=== PATIENT | male | born 1935 | race Caucasian/White ===

== ENCOUNTER → 2020-04-04 | Outpatient (CLI) | payer MEDICARE, BC ==
[2020-04-04 12:49] LABS: African American GFR (CKD) >90 (>60 ml/min/1.73 sqM); Blood Urea Nitrogen 11 mg/dL (9-20); Non-African American GFR(CKD) 83 (>60 ml/min/1.73 sqM)
--- NOTE | 2020-04-04 13:21 | CT ---
EXAMINATION TYPE: CT brain wo/w con DATE OF EXAM: 04/04/2020 COMPARISON: None. HISTORY: Headaches. CT DLP: 2037.9 mGycm Automated exposure control for dose reduction was used. CONTRAST: CT scan of the head is performed without and with IV Contrast, patient injected with 100 mL of Isovue M300. FINDINGS: There is no acute intracranial hemorrhage or midline shift identified on noncontrast images. Mild to moderate diffuse ventricular and sulcal prominence. Areas of low attenuation in the deep and periven tricular white matter. Postcontrast images show no suspicious enhancing intraparenchymal mass. Some v ascular calcifications distal internal carotid arteries bilaterally is present. The globes are intact and the visualized sinuses are clear. IMPRESSION: There is mild to moderate diffuse cerebral atrophy and moderate to advanced nonspecific w surjit matter changes may be on basis of probable chronic small vessel ischemic change and/or altered v ascular mechanics related to products of migraine headaches. No suspicious enhancing masses noted.
== END | disposition home or self-care (01) ==
LOC: RADCTMAIN 12:02
PROVIDERS: ATTEND Family Medicine
DX: G31.9 Degenerative disease of nervous system, unspecified (principal); R90.89 Other abnormal findings on diagnostic imaging of central nervous system
CPT/HCPCS: 82565; 84520; 70470; 36415; Q9967

== ENCOUNTER 2020-11-17 10:24 | Inpatient (IN) | payer MEDICARE, BC ==
[2020-11-17 10:57] LABS: Basophils # (A) 0.1 k/uL (0-0.2); Basophils % (A) 1 %; Eosinophils # (A) 0.3 k/uL (0-0.7); Eosinophils % (A) 6 %; HCT 42.7 % (39.0-53.0); HGB 14.6 gm/dL (13.0-17.5); Lymphocytes # (A) 1.8 k/uL (1.0-4.8); Lymphocytes % (A) 32 %; MCH 31.8 pg (25.0-35.0); MCHC 34.1 g/dL (31.0-37.0); MCV 93.1 fL (80.0-100.0); Mean Platelet Volume 8.1; Monocytes # (A) 0.3 k/uL (0-1.0); Monocytes % (A) 6 %; Neutrophils % (A) 52 %; Platelet Count 182 k/uL (150-450); RBC 4.58 m/uL (4.30-5.90); RDW 12.2 % (11.5-15.5); WBC 5.7 k/uL (3.8-10.6)
[2020-11-17] MEDS ORDERED: ASPIRIN 81 MG PO STA (11:01)
[2020-11-17] MEDS ORDERED: NITROGLYCERIN SL TABS 0.4 MG TAB SUBLINGUAL STA (11:01)
[2020-11-17 11:08] LABS: ALT 20 U/L (4-49); AST 34 U/L (17-59); African American GFR (CKD) >90 (>60 ml/min/1.73 sqM); Albumin 4.7 g/dL (3.5-5.0); Alkaline Phosphatase 183 U/L (38-126); Anion Gap 9 mmol/L; Blood Urea Nitrogen 11 mg/dL (9-20); Calcium 9.6 mg/dL (8.4-10.2); Carbon Dioxide 25 mmol/L (22-30); Chloride 102 mmol/L (98-107); Creatine Kinase 51 U/L (55-170); Glucose 294 mg/dL (74-99); Lipase 64 U/L (23-300); Magnesium 2.3 mg/dL (1.6-2.3); Non-African American GFR(CKD) 84 (>60 ml/min/1.73 sqM); Potassium 4.4 mmol/L (3.5-5.1); Sodium 136 mmol/L (137-145); Total Bilirubin 0.6 mg/dL (0.2-1.3); Total Protein 8.4 g/dL (6.3-8.2)
--- NOTE | 2020-11-17 11:08 | ED ---
Chest Pain HPI - General Chief Complaint: Chest Pain Stated Complaint: Chest pain Time Seen by Provider: 11/17/20 10:31 Source: patient, RN notes reviewed Mode of arrival: wheelchair Limitations: no limitations - History of Present Illness Initial Comments: This is a 85-year-old male who states he started developing chest pain this morning after helping his with a vacuum hand dry cleaner up. He states it was as if someone was grabbing his chest was almost 10/[address] for several minutes3-4/10 severity he denies any palpitations shortness breath fevers chills nausea vomiting sweats nothing makes it better nothing seems to make it worse. He's not had pain like this before. MD Complaint: chest pain - Related Data Home Medications Medication Instructions Recorded Confirmed Aspirin EC [Ecotrin Low Dose] 81 mg PO DAILY 11/17/20 11/17/20 Multivitamins, Thera [Multivitamin 1 tab PO DAILY 11/17/20 11/17/20 (formulary)] Vit C/E/Zn/Coppr/Lutein/Zeaxan 1 cap PO DAILY 11/17/20 11/17/20 [Preservision Areds 2 Softgel] amLODIPine [Norvasc] 10 mg PO DAILY 11/17/20 11/17/20 metFORMIN HCL [Glucophage] 500 mg PO BID 11/17/20 11/17/20 Allergies Allergy/AdvReac Type Severity Reaction Status Date / Time No Known Allergies Allergy Unverified 11/17/20 11:15 Review of Systems ROS Statement: Those systems with pertinent positive or pertinent negative responses have been documented in the HPI. ROS Other: All systems not noted in ROS Statement are negative. EKG Findings - EKG Results: EKG: interpreted by FADY, sinus rhythm (Sinus rhythm rate 73. We'll 168 QRS duration 14 QT since QTC 42/[address] configuration) Past Medical History Past Medical History: Hypertension Additional Past Medical History / Comment(s): taks oral DM rx History of Any Multi-Drug Resistant Organisms: None Reported Past Surgical History: Hernia Repair, Tonsillectomy Past Psychological History: No Psychological Hx Reported Smoking Status: Never smoker Past Alcohol Use History: None Reported Past Drug Use History: None Reported General Exam - General Exam Comments Initial Comments: This is a well-developed well-nourished awake alert oriented 3 male Limitations: no limitations General appearance: alert, in no apparent distress Head exam: Present: atraumatic, normocephalic, normal inspection Eye exam: Present: normal appearance, PERRL, EOMI. Absent: scleral icterus, conjunctival injection, periorbital swelling ENT exam: Present: normal exam, mucous membranes moist Neck exam: Present: normal inspection, full ROM, other (Dried review be her bruits). Absent: tenderness, meningismus, lymphadenopathy Respiratory exam: Present: normal lung sounds bilaterally. Absent: respiratory distress, wheezes, rales, rhonchi, stridor, chest wall tenderness Cardiovascular Exam: Present: regular rate, normal rhythm, normal heart sounds. Absent: systolic murmur, diastolic murmur, rubs, gallop, clicks GI/Abdominal exam: Present: soft, normal bowel sounds. Absent: distended, tenderness, guarding, rebound, rigid Extremities exam: Present: normal inspection, full ROM, normal capillary refill. Absent: tenderness, pedal edema, joint swelling, calf tenderness Back exam: Present: normal inspection Neurological exam: Present: alert, oriented X3, CN II-XII intact Psychiatric exam: Present: normal affect, normal mood Skin exam: Present: warm, dry, intact, normal color. Absent: rash Course Vital Signs 11/17/20 11/17/20 10:25 11:32 Pulse Rate 86 64 Respiratory 16 18 Rate Blood Pressure 210/82 187/87 O2 Sat by Pulse 99 97 Oximetry - Reevaluation(s) Reevaluation #1: 11/17/20 14:02 Patient did get improvement after nitro and aspirin no more pain. Reevaluation #2: 11/17/20 14:03 EKG the office was compared to that of today prominent T waves today not seen on the previous evaluation Chest Pain MDM - MDM The patient's imaging shows no evidence of pulmonary emboli. Please see com plete report I did discuss the findings with patient family and with Dr. Loomis. Patient be admitted for evaluation of chest pain Critical Care Time Critical Care Time: Yes Total Critical Care Time: 31 Critical Care Time: Critical care time including initial presentation with history physical labs x- rays multiple reevaluation the patient response to therapy discussion with the patient family regarding findings discussed with the admitting physician admission orders documentation the above and review of old charting was available. Disposition Clinical Impression: Unstable angina pectoris, Chest pain Disposition: ADMITTED IP TO THIS HOSP Condition: Fair Referrals: Cecilio Ackerman MD [Primary Care Provider] - 1-2 days
[2020-11-17 11:15] LABS: Partial Thromboplastin Time 26.1 sec (22.0-30.0); Prothrombin Time 10.6 sec (9.0-12.0)
[2020-11-17 11:18] LABS: D-Dimer 0.95 mg/L FEU (<0.60)
--- NOTE | 2020-11-17 11:25 | XR ---
EXAMINATION TYPE: XR chest 2V DATE OF EXAM: 11/17/2020 COMPARISON: NONE TECHNIQUE: PA and lateral views submitted. HISTORY: Chest pain FINDINGS: The lungs are clear and there is no pneumothorax, pleural effusion, or focal pneumonia. Mild hyperi nflation. Hypertrophic change of the spine. Arthropathy of the shoulders. Diffuse osteopenia. Heart s ize normal. No overt failure. IMPRESSION: 1. No acute process. Correlate for COPD.
[2020-11-17] MEDS ORDERED: ONDANSETRON 4 MG/2 ML VIAL IVP STA (11:43)
--- NOTE | 2020-11-17 13:18 | CT ---
EXAMINATION TYPE: CT angio chest DATE OF EXAM: 11/17/2020 COMPARISON: Radiograph same day HISTORY: 85-year-old male with elevated d-dimer, chest pain TECHNIQUE: Contiguous axial scanning of the chest performed with IV Contrast, patient injected with 1 00 mL of Isovue 370. Coronal/sagittal MIP reconstructions performed. CT DLP: 293 mGycm Automated exposure control for dose reduction was used. FINDINGS: Heart is upper limits of normal in size without pericardial effusion. No flattening of the interventr icular septum or reflux of contrast into the hepatic veins. Dense mitral annular calcifications are n oted. 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 Large caliber to the main right and left pulmonary arteries measuring up to 3.3 and 2.8 cm, respectiv citlaly, compatible with underlying pulmonary arterial hypertension. Satisfactory opacification of the pulmonary arterial system. There is mild motion at the right lung b ase limiting assessment of the segmental and more distal arterial branches here. Otherwise, no pulmon marc embolus is visualized. No thoracic lymphadenopathy by CT size criteria. Calcified left hilar and subcarinal lymph nodes comp atible with prior granulomatous disease. A few scattered calcified granulomas in the lungs. Strandy atelectasis or scarring in the lower lungs . Some patchy groundglass posterior left upper lobe is nonspecific. 6 mm right middle lobe pulmonary nodule, axial image 93. 5 mm peripheral right lower lobe pulmonary nodule, axial image 91. No consolidation or pleural effusion. Visualized upper abdomen shows calcified granulomas within both the spleen and liver. Small hiatal he rnia. 1.3 cm hypodensity, likely cortical cyst upper pole left kidney. Bones: Normal variant sternal foramen. Moderate to advanced degenerative disc disease midthoracic spi ne. Accentuated upper thoracic kyphosis. IMPRESSION: 1. SOME BREATHING MOTION ARTIFACT AT THE RIGHT BASE LIMITING ASSESSMENT OF SOME OF THE BASILAR SEGMEN ASHOK AND MORE DISTAL ARTERIAL BRANCHES HERE. OTHERWISE, NO PULMONARY EMBOLUS SEEN ELSEWHERE. 2. DENSE MITRAL ANNULAR CALCIFICATIONS. UNDERLYING PULMONARY ARTERIAL HYPERTENSION. 3. PRIOR GRANULOMATOUS DISEASE. A COUPLE PULMONARY NODULES ON THE RIGHT MEASURE UP TO 6 MM AND ARE NO NCALCIFIED. 6 MONTH FOLLOW-UP CT CHEST RECOMMENDED TO REASSESS. 4. SMALL HIATAL HERNIA.
[2020-11-17] MEDS ORDERED: NITROGLYCERIN SL TABS 0.4 MG TAB SUBLINGUAL PRN (14:04)
[2020-11-17] MEDS ORDERED: HEPARIN SODIUM,PORCINE 5,000 UNIT/ML 1 ML VIAL IV ONE (14:04)
[2020-11-17] MEDS: HEPARIN SOD,PORK IN 0.45% NACL 25,000 UNIT in 0.45% NACL 1 250ML.BAG IV SCH (14:26)
[2020-11-17] MEDS: SODIUM CHLORIDE 0.9% 1,000 ML IV SCH (14:28)
[2020-11-17] MEDS ORDERED: metFORMIN 500 MG TAB PO SCH (17:30)
[2020-11-17] MEDS: INSULIN ASPART (NovoLOG) 100 UNIT/ML VIAL SQ SCH ×2 (18:03→22:32)
[2020-11-17 18:07] LABS: Glucose,Whole Blood 286 mg/dL (75-99)
[2020-11-17] MEDS: NITROGLYCERIN OINT 1 INCH/GM PACKET TOPICAL SCH (18:07)
[2020-11-17 22:32] LABS: Glucose,Whole Blood 125 mg/dL (75-99)
[2020-11-18] MEDS: NITROGLYCERIN OINT 1 INCH/GM PACKET TOPICAL SCH ×3 (00:24→17:05)
--- NOTE | 2020-11-18 00:27 | P.HPIM ---
History of Present Illness H&P Date: 11/17/20 Chief Complaint: cHEST pAIN Patient is a 83-year-old male with a known history of hypertension, diabetes type 2 [id number] presents to ER with complaints of chest pain left retrosternal after helping his with a vacuum pecan cleaner. Patient had breakfast and was sitting in the chair. Suddenly he developed squeezing type chest pain 10 out of 10 in severity lasting for about an hour. Patient was given aspirin and nitro in the ER which seemed to help his pain. Currently denied any complaints of chest pain. Chest pain was associated with mild shortness of breath. No nausea vomiting or diaphoresis. Denied any recent illnesses. No prior history of heart disease or coronary artery disease. No cough or sputum production. No nausea vomiting or abdominal pain or diarrhea. Chest x-ray showed no acute process. Correlate for COPD CT angiogram of the chest was done which showed some breathing artifact at the right base limiting assessment of some of the basilar segment and more distal arterial branches here. Otherwise no PE. Dense mitral annular calcifications. Underlying pulmonary arterial hypertension. Prior granulomatous disease. Pulmonary nodules on the right measures up to 6 mm and are noncalcified. 6-month follow-up CT chest recommended to assess. Small hiatal hernia. D-dimer 0.95, sodium 136, blood sugar is 294 Review of Systems Constitutional: Patient denies any fever or chills . No generalized weakness or weight loss. Abdomen: Patient denied nausea vomiting and diarrhea and abdominal pain. Cardiovascular: Patient denies any chest pain or short of breath no palpitations. Respiratory: patient denied any cough or sputum production. No shortness of breath Neurologic: Patient denied any numbness or tingling headache. Musculoskeletal: Patient denies any complaints of joint swelling or deformity. Skin: Negative Psychiatric: Negative Endocrine: No heat or cold intolerance. No recent weight gain. Genitourinary: No dysuria or hematuria. All other 14 point ROS negative except the above Past Medical History Past Medical History: Hypertension Additional Past Medical History / Comment(s): taks oral DM rx History of Any Multi-Drug Resistant Organisms: None Reported Past Surgical History: Hernia Repair, Tonsillectomy Past Psychological History: No Psychological Hx Reported Smoking Status: Never smoker Past Alcohol Use History: None Reported Past Drug Use History: None Reported Medications and Allergies Home Medications Medication Instructions Recorded Confirmed Type Aspirin EC [Ecotrin Low Dose] 81 mg PO DAILY 11/17/20 11/17/20 History Multivitamins, Thera [Multivitamin 1 tab PO DAILY 11/17/20 11/17/20 History (formulary)] Vit C/E/Zn/Coppr/Lutein/Zeaxan 1 cap PO DAILY 11/17/20 11/17/20 History [Preservision Areds 2 Softgel] amLODIPine [Norvasc] 10 mg PO DAILY 11/17/20 11/17/20 History metFORMIN HCL [Glucophage] 500 mg PO BID 11/17/20 11/17/20 History Allergies Allergy/AdvReac Type Severity Reaction Status Date / Time No Known Allergies Allergy Unverified 11/17/20 11:15 Physical Exam Vitals: Vital Signs Pulse Resp BP Pulse Ox 11/17/20 14:29 89 16 167/80 99 11/17/20 11:32 64 18 187/87 97 11/17/20 10:25 86 16 210/82 99 Intake and Output 11/16/20 11/17/20 11/17/20 22:59 06:59 14:59 Other: Weight 72.575 kg PHYSICAL EXAMINATION: Patient is lying in the bed comfortably, no acute distress, awake alert and oriented.. HEENT: Normocephalic. Neck is supple. Pupils reactive. Nostrils clear. Oral cavity is moist. Ears reveal no drainage. Neck reveals no JVD, carotid bruits, or thyromegaly. CHEST EXAMINATION: Trachea is central. Symmetrical expansion. Lung wall clear to auscultation and percussion. CARDIAC: Normal S1, S2 with no gallops. No murmurs ABDOMEN: Soft. Bowel sounds normal. No organomegaly. No abdominal bruits. Extremities: reveal no edema. No clubbing or cyanosis Neurologically awake, alert, oriented x3 with well-coordinated movements. No focal deficits noted Skin: No rash or skin lesions. Psychiatric: Coperative. Nonsuicidal Musculoskeletal: No joint swelling or deformity. Normal range of motion. Results CBC & Chem 7: 11/17/20 10:49 11/17/20 10:49 Labs: Abnormal Lab Results - Last 24 Hours (Table) 11/17/20 11/17/20 Range/Units 10:49 10:49 D-Dimer 0.95 H (<0.60) mg/L FEU Sodium 136 L (137-145) mmol/L Glucose 294 H (74-99) mg/dL Alkaline Phosphatase 183 H (38-126) U/L Creatine Kinase 51 L (55-170) U/L Total Protein 8.4 H (6.3-8.2) g/dL Thrombosis Risk Factor Assmnt - DVT/VTE Prophylaxis DVT/VTE Prophylaxis: Pharmacologic Prophylaxis ordered Assessment and Plan Assessment: Atypical chest pain. Possible unstable angina. Hypertensive emergency on admission with blood pressure 210/82 6 mm right lung nodule. Follow-up CT in 6 months. Small hiatal hernia Diabetes type 2 [id number] Hyperglycemia with uncontrolled diabetes type 2 Elevated D-dimer level without evidence of PE on CTA DVT prophylaxis patient is already on heparin drip Plan: Patient will be continued on telemetry monitoring. Continue with serial troponins and continue with heparin drip. Continue with home blood pressure medications. Blood pressure is trending down. Insulin sliding scale for better blood sugar control. Cardiology was consulted and further recommendations based on the clinical course. Discussed with his daughter at bedside. Prognosis guarded at this time. Time with Patient: Greater than 30
[2020-11-18] MEDS: INSULIN DETEMIR (LEVEMIR) 100 UNIT/ML SYR SQ SCH ×2 (00:35→22:58)
[2020-11-18 06:35] LABS: Glucose,Whole Blood 93 mg/dL (75-99)
[2020-11-18] MEDS: INSULIN ASPART (NovoLOG) 100 UNIT/ML VIAL SQ SCH ×4 (06:39→22:59)
[2020-11-18 07:23] LABS: HDL Cholesterol 76 mg/dL (40-60); Triglycerides 57 mg/dL (<150)
[2020-11-18 07:25] LABS: Cholesterol 180 mg/dL (<200); LDL Cholesterol,Calculated 93 mg/dL (0-99)
[2020-11-18] MEDS ORDERED: ASPIRIN 325 MG TAB PO SCH (09:00)
[2020-11-18] MEDS ORDERED: ALPRAZolam 0.5 MG TAB PO PRN (10:18)
[2020-11-18] MEDS ORDERED: ATORVASTATIN 80 MG TAB PO STA (10:18)
[2020-11-18] MEDS ORDERED: SODIUM CHLORIDE 0.9% 1,000 ML in EMPTY BAG 1 BAG IV ONE (10:18)
[2020-11-18] MEDS ORDERED: ASPIRIN 325 MG TAB PO STA (10:18)
[2020-11-18] MEDS ORDERED: NITROGLYCERIN SL TABS 0.4 MG TAB SUBLINGUAL PRN (10:18)
[2020-11-18] MEDS ORDERED: ALPRAZolam 0.25 MG TAB PO PRN (10:18)
[2020-11-18] MEDS: amLODIPine 10 MG TAB PO SCH (11:37)
[2020-11-18 11:45] LABS: Glucose,Whole Blood 113 mg/dL (75-99)
--- NOTE | 2020-11-18 12:16 | ECHOF ---
Referral Reason:LV function, chest pain MEASUREMENTS -------- HEIGHT: 172.7 cm WEIGHT: 72.6 kg BP: 167/77 IVSd: 1.2 cm (0.6 - 1.1) LVIDd: 3.4 cm (3.9 - 5.3) LVPWd: 0.9 cm (0.6 - 1.1) IVSs: 1.6 cm LVIDs: 2.0 cm LVPWs: 1.3 cm LAESV Index (A-L): 31.92 ml/m Ao Diam: 3.2 cm (2.0 - 3.7) AV Cusp: 1.7 cm (1.5 - 2.6) LA Diam: 2.4 cm (2.7 - 3.8) MV EXCURSION: 12.148 mm (> 18.000) MV EF SLOPE: 33 mm/s (70 - 150) EPSS: 0.6 cm MV E Brigido: 1.09 m/s MV DecT: 303 ms MV A Brigido: 1.40 m/s MV E/A Ratio: 0.78 AR PHT: 428 ms RAP: 5.00 mmHg RVSP: 40.42 mmHg FINDINGS -------- This was a technically adequate study. The left ventricular size is normal. There is mild concentric left ventricular hypertrophy. Overa ll left ventricular systolic function is normal with, an EF between 55 - 60 %. Normal LAP Grade 1 D iastolic Dysfunction. The right ventricle is normal in size. LA is midly dilated 29-33ml/m2. The right atrial size is normal. Aortic valve is trileaflet and is mildly thickened. There is mild aortic valve sclerosis. There i s mild aortic regurgitation. The mitral valve is normal. The mitral valve leaflets are moderately thickened. Moderate mitral a nnular calcification present. Mild mitral regurgitation is present. The peak and mean MV gradien ts are 10.85mmHg 3.42mmHg as measured by doppler. [id number] mitral stenosis. The tricuspid valve appears structurally normal. Mild tricuspid regurgitation present. There is m ild pulmonary hypertension. The right ventricular systolic pressure, as measured by Doppler, is 40. 42mmHg. There is no pulmonic regurgitation present. The aortic root size is normal. IVC Not well visulized. There is no pericardial effusion. CONCLUSIONS -------- 1. The left ventricular size is normal. 2. There is mild concentric left ventricular hypertrophy. 3. Overall left ventricular systolic function is normal with, an EF between 55 - 60 %. 4. Normal LAP Grade 1 Diastolic Dysfunction. 5. LA is midly dilated 29-33ml/m2. 6. Aortic valve is trileaflet and is mildly thickened. 7. There is mild aortic valve sclerosis. 8. There is mild aortic regurgitation. 9. The mitral valve leaflets are moderately thickened. 10. Moderate mitral annular calcification present. 11. Mild mitral regurgitation is present. 12. The peak and mean MV gradients are 10.85mmHg 3.42mmHg as measured by doppler. 13. [id number] mitral stenosis. 14. Mild tricuspid regurgitation present. 15. There is mild pulmonary hypertension. 16. The right ventricular systolic pressure, as measured by Doppler, is 40.42mmHg. 17. There is no pericardial effusion. P[employer]: Tiarra Roberts RDCS
[2020-11-18] MEDS ORDERED: fentaNYL (PF) 50 MCG/ML 2 ML AMP ONE (13:20)
[2020-11-18] MEDS ORDERED: LIDOCAINE 1% INJ 10MG/ML (20 ML MDV) ONE (13:20)
[2020-11-18] MEDS ORDERED: VERAPAMIL 2.5 MG/ML 2 ML AMP ONE (13:20)
[2020-11-18 13:21] LABS: Glucose,Whole Blood 162 mg/dL (75-99)
--- NOTE | 2020-11-18 14:15 | P.CRDCN ---
<Rosibel Chacko - Last Filed: 11/18/20 14:07> History of Present Illness Consult date: 11/18/20 History of present illness: CHIEF COMPLAINT: Chest pain HISTORY OF PRESENT ILLNESS: This is a 85-year-old male with a past medical history significant for hypertension and diabetes. 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 We have been asked to see the patient in consultation for chest pain. Patient states he was helping his empty the vacuum curve cleaner yesterday and he was bending over and when he stood back up he began having chest pain. He states he went to his primary care physician yesterday for this chest pain and was sent to the emergency room for further evaluation. The patient denies any chest pain this morning at the time of examination. He denies shortness of breath. Denies dizziness or lightheadedness. DIAGNOSTICS: EKG reveals sinus mechanism Chest xray no acute process. Correlate for COPD Laboratory data: WBC 5.7. Hemoglobin 14.6. Platelet count 182. D-dimer 0.95. Sodium 136. Potassium 4.4. BUN 11. Creatinine 0.77. Troponin 0.031. 1.240. 2.620 Current home cardiac medications include Norvasc 10 mg daily and aspirin 81 mg daily REVIEW OF SYSTEMS: At the time of my exam: CONSTITUTIONAL: Denies fever or chills. HEENT: Denies blurred vision, vision changes, or eye pain. Denies hemoptysis CARDIOVASCULAR: Denies chest pain, orthopnea, PND or palpitations RESPIRATORY: No shortness of breath. GASTROINTESTINAL: Denies abdominal pain. Denies nausea or vomiting. HEMATOLOGIC: Denies bleeding disorders. GENITOURINARY: Denies any blood in urine. SKIN: Denies pruitis. Denies rash. PHYSICAL EXAM: VITAL SIGNS: Reviewed. GENERAL: Well-developed in no acute distress. HEENT: Head is normocephalic. Pupils are equal, round. Sclerae anicteric. Mucous membranes of the mouth are moist. Neck supple. No JVD or thyromegaly LUNGS: Respirations even and unlabored. Lungs essentially clear to auscultation bilaterally. HEART: Regular rate and rhythm. S1 and S2 heard. ABDOMEN: Soft. Nondistended. Nontender. EXTREMITIES: Normal range of motion. No clubbing or cyanosis. Peripheral pulses intact. No lower extremity edema NEUROLOGIC: Awake and alert. Oriented x 3. ASSESSMENT: Non-ST elevated myocardial infarction Elevated d-dimer, CT negative for PE Hypertension Diabetes mellitus, type II PLAN: Decrease aspirin to 81 mg daily Continue IV heparin Obtain 2-D echo to assess cardiac structure and function Patient to undergo cardiac cath with Dr. Zaragoza today Nurse practitioner note has been reviewed by physician. Signing provider agrees with the documented findings, assessment, and plan of care. Past Medical History Past Medical History: Hypertension Additional Past Medical History / Comment(s): taks oral DM rx History of Any Multi-Drug Resistant Organisms: None Reported Past Surgical History: Hernia Repair, Tonsillectomy Past Anesthesia/Blood Transfusion Reactions: No Reported Reaction Past Psychological History: No Psychological Hx Reported Smoking Status: Never smoker Past Alcohol Use History: None Reported Past Drug Use History: None Reported Medications and Allergies Home Medications Medication Instructions Recorded Confirmed Type Aspirin EC [Ecotrin Low Dose] 81 mg PO DAILY 11/17/20 11/17/20 History Multivitamins, Thera [Multivitamin 1 tab PO DAILY 11/17/20 11/17/20 History (formulary)] Vit C/E/Zn/Coppr/Lutein/Zeaxan 1 cap PO DAILY 11/17/20 11/17/20 History [Preservision Areds 2 Softgel] amLODIPine [Norvasc] 10 mg PO DAILY 11/17/20 11/17/20 History metFORMIN HCL [Glucophage] 500 mg PO BID 11/17/20 11/17/20 History Allergies Allergy/AdvReac Type Severity Reaction Status Date / Time No Known Allergies Allergy Unverified 11/17/20 11:15 Physical Exam Vitals: Vital Signs Temp Pulse Pulse Resp BP BP Pulse Ox 11/18/20 09:00 98.1 F 68 16 186/88 94 L 11/18/20 03:00 98.1 F 60 16 167/77 95 11/17/20 21:00 98.0 F 61 16 166/76 96 11/17/20 18:07 60 16 153/76 99 11/17/20 14:29 89 16 167/80 99 Intake and Output 11/17/20 11/18/20 11/18/20 22:59 06:59 14:59 Intake Total 66.769 76.059 Output Total 1300 900 Balance 66.769 -1223.941 -900 Intake: Intake, IV Titration 66.769 76.059 Amount Heparin Sod,Pork in 0.45% 66.769 76.059 NaCl 25,000 unit In 0.45 % NaCl 1 250ml.bag @ 12 UNITS/KG/HR 8.709 mls/hr IV .Q24H [facility] Rx#: [id number] Output: Urine 1300 900 Other: Voiding Method Toilet Toilet Toilet # Voids 3 Weight 72.575 kg Results 11/17/20 10:49 11/17/20 10:49 Cardiac Enzymes 11/17/20 11/17/20 Range/Units 15:06 17:39 Troponin I 1.240 H* 2.620 H* (0.000-0.034) ng/mL Coagulation 11/17/20 11/18/20 Range/Units 20:03 06:07 APTT 45.3 H 42.4 H (22.0-30.0) sec Lipids 11/18/20 Range/Units 06:07 Triglycerides 57 (<150) mg/dL Cholesterol 180 (<200) mg/dL HDL Cholesterol 76 H (40-60) mg/dL Current Medications Generic Name Dose Route Start Last Admin Trade Name Freq PRN Reason Stop Dose Admin Alprazolam 0.25 mg 11/18/20 10:18 Alprazolam 0.25 Mg Tab PO Q6HR PRN Mild Anxiety Alprazolam 0.5 mg 11/18/20 10:18 Alprazolam 0.5 Mg Tab PO Q6HR PRN Moderate Anxiety Amlodipine Besylate 10 mg 11/18/20 09:00 11/18/20 11:37 Amlodipine 10 Mg Tab PO 10 mg DAILY [facility] Administration Aspirin 81 mg 11/19/20 09:00 Aspirin 81 Mg PO DAILY [facility] Sodium Chloride 1,000 mls @ 20 mls/hr 11/17/20 14:15 11/17/20 14:28 Saline 0.9% IV 20 mls/hr .Q24H [facility] Administration Heparin Sodium/Sodium Chloride 250 mls @ 8.709 mls/hr 11/17/20 14:15 11/18/20 06:50 25,000 unit/ Sodium Chloride IV 10 units/kg/hr .Q24H [facility] 7.258 mls/hr Titration Protocol 12 UNITS/KG/HR Sodium Chloride 1,000 ml/ IV 1,000 mls @ 72.575 mls/hr 11/18/20 10:18 11/18/20 11:39 Solution IV 11/19/20 00:04 72.575 mls/hr .[id number] ONE Administration 1 ML/KG/HR Heparin Sodium (Porcine) 10, 1,001 mls @ 999 mls/hr 11/19/20 07:00 000 unit/ Sodium Chloride IRRIGATION 11/19/20 23:00 ONCE PRN INTRA-OP Heparin Sodium (Porcine) 2,500 250.5 mls @ 250 mls/hr 11/19/20 07:00 unit/ Sodium Chloride IRRIGATION 11/19/20 23:00 ONCE PRN INTRA-OP Insulin Aspart 0 unit 11/17/20 17:30 11/18/20 06:39 Insulin Aspart (Novolog) 100 Unit/Ml Vial SQ Not Given ACHS [facility] Protocol Insulin Detemir 10 unit 11/18/20 01:00 11/18/20 00:35 Insulin Detemir (Levemir) 100 Unit/Ml Syr SQ 10 unit HS [facility] Administration Multivitamins 1 each 11/18/20 09:00 Multivitamins, Thera 1 Each Tab PO DAILY [facility] Multivitamins/Minerals 1 each 11/18/20 09:00 Vit A,C & A-Gqvoyu-Wrdqbwal 1 Each Tab PO DAILY [facility] Nitroglycerin 0.4 mg 11/17/20 14:04 Nitroglycerin Sl Tabs 0.4 Mg Tab SUBLINGUAL Q5M PRN Chest Pain Nitroglycerin 1 inch 11/17/20 18:00 11/18/20 06:48 Nitroglycerin Oint 1 Inch/Gm Packet TOPICAL 1 inch Q6HR [facility] Administration Nitroglycerin 0.4 mg 11/18/20 10:18 Nitroglycerin Sl Tabs 0.4 Mg Tab SUBLINGUAL Q5M PRN Chest Pain Intake and Output 11/17/20 11/18/20 11/18/20 22:59 06:59 14:59 Intake Total 66.769 76.059 Output Total 1300 900 Balance 66.769 -1223.941 -900 Intake: Intake, IV Titration 66.769 76.059 Amount Heparin Sod,Pork in 0.45% 66.769 76.059 NaCl 25,000 unit In 0.45 % NaCl 1 250ml.bag @ 12 UNITS/KG/HR 8.709 mls/hr IV .Q24H [facility] Rx#: [id number] Output: Urine 1300 900 Other: Voiding Method Toilet Toilet Toilet # Voids 3 Weight 72.575 kg 11/17/20 10:49 11/17/20 10:49 <Sergey Zaragoza - Last Filed: 11/18/20 15:51> History of Present Illness History of present illness: Discussed with daughter and patient with recommendations for heart catheterization given non-STEMI. Both were agreeable and therefore heart catheterization was scheduled. Unfortunately patient became somewhat altered with slower response to answer questions and not as alert with answers in the afternoon before his heart catheterization was to be performed. He denies any chest pain. We will delay the heart catheterization, likely to be performed tomorrow pending further neurologic workup. Keep patient nothing by mouth for possible heart catheterization tomorrow. Sergey Zaragoza D.O. Physical Exam Vitals: Vital Signs Temp Pulse Pulse Resp BP BP Pulse Ox 11/18/20 15:00 97.3 F L 62 18 180/81 96 11/18/20 13:00 97.6 F 74 18 148/70 96 11/18/20 09:00 98.1 F 68 16 186/88 94 L 11/18/20 03:00 98.1 F 60 16 167/77 95 11/17/20 21:00 98.0 F 61 16 166/76 96 11/17/20 18:07 60 16 153/76 99 Intake and Output 11/18/20 11/18/20 11/18/20 06:59 14:59 22:59 Intake Total 76.059 Output Total 1300 1100 Balance -1223.941 -1100 Intake: Intake, IV Titration 76.059 Amount Heparin Sod,Pork in 0.45% 76.059 NaCl 25,000 unit In 0.45 % NaCl 1 250ml.bag @ 12 UNITS/KG/HR 8.709 mls/hr IV .Q24H [facility] Rx#: [id number] Output: Urine 1300 1100 Other: Voiding Method Toilet Toilet Toilet # Voids 3 Results 11/17/20 10:49 11/17/20 10:49 Cardiac Enzymes 11/17/20 11/17/20 Range/Units 15:06 17:39 Troponin I 1.240 H* 2.620 H* (0.000-0.034) ng/mL Coagulation 11/17/20 11/18/20 Range/Units 20:03 06:07 APTT 45.3 H 42.4 H (22.0-30.0) sec Lipids 11/18/20 Range/Units 06:07 Triglycerides 57 (<150) mg/dL Cholesterol 180 (<200) mg/dL HDL Cholesterol 76 H (40-60) mg/dL Current Medications Generic Name Dose Route Start Last Admin Trade Name Freq PRN Reason Stop Dose Admin Alprazolam 0.25 mg 11/18/20 10:18 Alprazolam 0.25 Mg Tab PO Q6HR PRN Mild Anxiety Alprazolam 0.5 mg 11/18/20 10:18 Alprazolam 0.5 Mg Tab PO Q6HR PRN Moderate Anxiety Amlodipine Besylate 10 mg 11/18/20 09:00 11/18/20 11:37 Amlodipine 10 Mg Tab PO 10 mg DAILY [facility] Administration Aspirin 81 mg 11/19/20 09:00 Aspirin 81 Mg PO DAILY [facility] Sodium Chloride 1,000 mls @ 20 mls/hr 11/17/20 14:15 11/17/20 14:28 Saline 0.9% IV 20 mls/hr .Q24H [facility] Administration Heparin Sodium/Sodium Chloride 250 mls @ 8.709 mls/hr 11/17/20 14:15 11/18/20 06:50 25,000 unit/ Sodium Chloride IV 10 units/kg/hr .Q24H [facility] 7.258 mls/hr Titration Protocol 12 UNITS/KG/HR Sodium Chloride 1,000 ml/ IV 1,000 mls @ 72.575 mls/hr 11/18/20 10:18 11/18/20 11:39 Solution IV 11/19/20 00:04 72.575 mls/hr .[id number] ONE Administration 1 ML/KG/HR Heparin Sodium (Porcine) 10, 1,001 mls @ 999 mls/hr 11/19/20 07:00 000 unit/ Sodium Chloride IRRIGATION 11/19/20 23:00 ONCE PRN INTRA-OP Heparin Sodium (Porcine) 2,500 250.5 mls @ 250 mls/hr 11/19/20 07:00 unit/ Sodium Chloride IRRIGATION 11/19/20 23:00 ONCE PRN INTRA-OP Insulin Aspart 0 unit 11/17/20 17:30 11/18/20 06:39 Insulin Aspart (Novolog) 100 Unit/Ml Vial SQ Not Given ACHS [facility] Protocol Insulin Detemir 10 unit 11/18/20 01:00 11/18/20 00:35 Insulin Detemir (Levemir) 100 Unit/Ml Syr SQ 10 unit HS [facility] Administration Multivitamins 1 each 11/18/20 09:00 Multivitamins, Thera 1 Each Tab PO DAILY [facility] Multivitamins/Minerals 1 each 11/18/20 09:00 Vit A,C & V-Snhigp-Byarhxba 1 Each Tab PO DAILY [facility] Nitroglycerin 0.4 mg 11/17/20 14:04 Nitroglycerin Sl Tabs 0.4 Mg Tab SUBLINGUAL Q5M PRN Chest Pain Nitroglycerin 0.4 mg 11/18/20 10:18 Nitroglycerin Sl Tabs 0.4 Mg Tab SUBLINGUAL Q5M PRN Chest Pain Intake and Output 11/18/20 11/18/20 11/18/20 06:59 14:59 22:59 Intake Total 76.059 Output Total 1300 1100 Balance -1223.941 -1100 Intake: Intake, IV Titration 76.059 Amount Heparin Sod,Pork in 0.45% 76.059 NaCl 25,000 unit In 0.45 % NaCl 1 250ml.bag @ 12 UNITS/KG/HR 8.709 mls/hr IV .Q24H [facility] Rx#: [id number] Output: Urine 1300 1100 Other: Voiding Method Toilet Toilet Toilet # Voids 3 11/17/20 10:49 11/17/20 10:49
[2020-11-18 14:26] VITALS: RESP 18
--- NOTE | 2020-11-18 14:27 | CT ---
EXAMINATION TYPE: CT brain wo con DATE OF EXAM: 11/18/2020 HISTORY: Sudden onset of confusion CT DLP: 1060.4 mGycm. Automated Exposure Control for Dose Reduction was Utilized. TECHNIQUE: CT scan of the head is performed without contrast. COMPARISON: CT brain April 04, 2020. FINDINGS: There is no acute intracranial hemorrhage or midline shift identified. There is diffuse v entricular and sulcal prominence consistent with diffuse age-related cerebral atrophy. There is low- attenuation in the periventricular white matter consistent with chronic small vessel ischemic change. The globes are intact and the visualized sinuses are clear. IMPRESSION: No acute intracranial hemorrhage or midline shift. There is mild to moderate diffuse ag e-related cerebral atrophy and moderately advanced chronic small vessel ischemic change redemonstrate d. No significant change from recent CT.
[2020-11-18 15:52] LABS: Basophils % (A) 0 %; Eosinophils # (A) 0.2 k/uL (0-0.7); Eosinophils % (A) 2 %; HGB 13.8 gm/dL (13.0-17.5); Lymphocytes # (A) 1.5 k/uL (1.0-4.8); Lymphocytes % (A) 21 %; MCH 32.7 pg (25.0-35.0); MCHC 34.4 g/dL (31.0-37.0); MCV 94.9 fL (80.0-100.0); Mean Platelet Volume 9.9; Monocytes # (A) 0.5 k/uL (0-1.0); Monocytes % (A) 7 %; Neutrophils # (A) 4.9 k/uL (1.3-7.7); Neutrophils % (A) 67 %; Platelet Count 171 k/uL (150-450); RBC 4.22 m/uL (4.30-5.90); RDW 12.5 % (11.5-15.5); WBC 7.3 k/uL (3.8-10.6)
[2020-11-18 16:04] LABS: African American GFR (CKD) >90 (>60 ml/min/1.73 sqM); Anion Gap 7 mmol/L; Blood Urea Nitrogen 8 mg/dL (9-20); Calcium 9.2 mg/dL (8.4-10.2); Carbon Dioxide 25 mmol/L (22-30); Chloride 108 mmol/L (98-107); Glucose 95 mg/dL (74-99); Non-African American GFR(CKD) 87 (>60 ml/min/1.73 sqM); Potassium 4.1 mmol/L (3.5-5.1); Sodium 140 mmol/L (137-145)
[2020-11-18] MEDS: VIT A,C & E-LUTEIN-MINERALS 1 EACH TAB PO SCH (16:39)
[2020-11-18] MEDS: HEPARIN SOD,PORK IN 0.45% NACL 25,000 UNIT in 0.45% NACL 1 250ML.BAG IV SCH (16:39)
[2020-11-18] MEDS: MULTIVITAMINS, THERA 1 EACH TAB PO SCH (16:39)
[2020-11-18] MEDS: SODIUM CHLORIDE 0.9% 1,000 ML IV SCH (16:46)
[2020-11-18 16:52] LABS: Glucose,Whole Blood 151 mg/dL (75-99)
--- NOTE | 2020-11-18 17:46 | P.CNNES ---
History of Present Illness Consult date: 11/18/20 Requesting physician: Sandhya Loomis Reason for Consult: New confusion, heart cath delayed History of Present Illness: Patient is an 85-year-old male came to the hospital yesterday at 10:24 AM for chest pain after helping his with vacuum carpet cleaner up. No palpitations, shortness of breath fever or chills. Patient was evaluated by forest officer and recommended cardiac catheterization. This was scheduled for this afternoon. Patient apparently did not sleep last night. Around noon he went to sleep. At around 1:30 PM when it was time to go to brine room laborer and the nurse tried to wake him up, patient was difficulty to arouse but then woke up and was disoriented, could not recall which room he is in. He was having slight difficulty recalling his last name. Patient states that he felt he was in a dream. However a few minutes later his mental functioning started clearing up. The symptoms completely resolved in 10 minutes. There was no facial droop, focal numbness tingling weakness or any speech difficulty reported. Cardiac cath was canceled for today and neurology consultation initiated. Patient had a CTA of chest, which revealed no pulmonary embolism. Dense mitral annular calcification. Prior granulomatous disease. Computed tomography scan of head showed no acute intracranial hemorrhage or midline shift. There is mild to moderate diffuse age-related cerebral atrophy and moderately advanced chronic small vessel ischemic change redemonstrated. No significant change from recent CT. EKG shows normal sinus rhythm. 2-D echo showed EF 55-60%. Left atrium is mildly dilated. Aortic valve is trileaflet and mildly thickened. Mild aortic valve sclerosis and regurgitation. Patient takes aspirin 81 mg, metformin 500 mg twice a day and amlodipine 10 mg daily. Patient tells me that his symptoms have completely gone, he did not have any focal symptoms. He feels back to baseline. Patient states that he does have some memory issues, word finding problems which is not new. Patient has history of diabetes, which he claims is borderline for 20 years. Patient has hypertension. Never smoked, does not drink alcohol. Review of Systems Patient at present does not have any chest pain or shortness of breath. He did have it yesterday. Denies any abdominal pain, nausea, vomiting diarrhea. Denies any diplopia, nausea vomiting diarrhea. Denies abdominal pain to. Denies any headache. Denies any rash, complains of some fatigue. Denies anxiety depression. Has some memory concerns. All other review of systems negative Past Medical History Past Medical History: Hypertension Additional Past Medical History / Comment(s): taks oral DM rx History of Any Multi-Drug Resistant Organisms: None Reported Past Surgical History: Hernia Repair, Tonsillectomy Past Anesthesia/Blood Transfusion Reactions: No Reported Reaction Past Psychological History: No Psychological Hx Reported Smoking Status: Never smoker Past Alcohol Use History: None Reported Past Drug Use History: None Reported Medications and Allergies Home Medications Medication Instructions Recorded Confirmed Type Aspirin EC [Ecotrin Low Dose] 81 mg PO DAILY 11/17/20 11/17/20 History Multivitamins, Thera [Multivitamin 1 tab PO DAILY 11/17/20 11/17/20 History (formulary)] Vit C/E/Zn/Coppr/Lutein/Zeaxan 1 cap PO DAILY 11/17/20 11/17/20 History [Preservision Areds 2 Softgel] amLODIPine [Norvasc] 10 mg PO DAILY 11/17/20 11/17/20 History metFORMIN HCL [Glucophage] 500 mg PO BID 11/17/20 11/17/20 History Allergies Allergy/AdvReac Type Severity Reaction Status Date / Time No Known Allergies Allergy Unverified 11/17/20 11:15 Physical Examination - Vital Signs Vital Signs: Vital Signs Temp Pulse Pulse Resp BP BP Pulse Ox 11/18/20 15:00 97.3 F L 62 18 180/81 96 11/18/20 13:00 97.6 F 74 18 148/70 96 11/18/20 09:00 98.1 F 68 16 186/88 94 L 11/18/20 03:00 98.1 F 60 16 167/77 95 11/17/20 21:00 98.0 F 61 16 166/76 96 11/17/20 18:07 60 16 153/76 99 Intake and Output 11/18/20 11/18/20 11/18/20 06:59 14:59 22:59 Intake Total 76.059 Output Total 1300 1100 Balance -1223.941 -1100 Intake: Intake, IV Titration 76.059 Amount Heparin Sod,Pork in 0.45% 76.059 NaCl 25,000 unit In 0.45 % NaCl 1 250ml.bag @ 12 UNITS/KG/HR 8.709 mls/hr IV .Q24H [facility] Rx#: [id number] Output: Urine 1300 1100 Other: Voiding Method Toilet Toilet Toilet # Voids 3 On examination patient is an elderly male, in no acute distress. He is alert and awake fully oriented. Speech and language functions are normal. Patient does have some word finding issue, but his baseline. He denies any speech difficulty. Attention and concentration fund of knowledge is adequate. On cranial exertion pupils are round and reactive to light, visual wall are full on confrontation, extraocular muscles are intact with no nystagmus. Patient has mild right facial asymmetry, but he claims it is baseline. I even had him see his face in the mirror, and he states is baseline. Tongue protrudes the midline. Palatal elevation and sensation normal. Hearing is slightly decreased, shoulder shrug normal. Facial sensation is normal. On muscle strength testing there is no pronator drift and the strength is normal in arms and legs distally and proximally. Deep tendon reflexes are very symmetric, 1+ to 2, and plantars downgoing. Sensory to touch and temperature is equal on both sides with no neglect on double simultaneous stimulation. No ataxia for [id number] testing, tone and bulk of muscles normal. Gait normal. On general examination there is no bruit, murmur, peripheral pulses present. Abdomen is soft nontender. Chest is clear. Results - Laboratory Findings CBC and BMP: 11/18/20 06:07 11/18/20 06:07 Abnormal Lab Findings: Abnormal Labs 11/17/20 11/17/20 11/17/20 10:49 10:49 15:06 RBC APTT D-Dimer 0.95 H Sodium 136 L Glucose 294 H POC Glucose (mg/dL) Alkaline Phosphatase 183 H Creatine Kinase 51 L Troponin I 1.240 H* Total Protein 8.4 H HDL Cholesterol 11/17/20 11/17/20 11/17/20 17:39 17:56 20:03 RBC APTT 45.3 H D-Dimer Sodium Glucose POC Glucose (mg/dL) 286 H Alkaline Phosphatase Creatine Kinase Troponin I 2.620 H* Total Protein HDL Cholesterol 11/17/20 11/18/20 11/18/20 22:30 06:07 06:07 RBC APTT 42.4 H D-Dimer Sodium Glucose POC Glucose (mg/dL) 125 H Alkaline Phosphatase Creatine Kinase Troponin I Total Protein HDL Cholesterol 76 H 11/18/20 11/18/20 11/18/20 06:07 11:44 13:19 RBC 4.22 L APTT D-Dimer Sodium Glucose POC Glucose (mg/dL) 113 H 162 H Alkaline Phosphatase Creatine Kinase Troponin I Total Protein HDL Cholesterol Assessment and Plan Assessment: * Altered mental status, likely from waking up from deep sleep. Doubt TIA. Patient has no lateralizing symptoms. Current NIH stroke scale 0. * Acute non-STEMI. * Hypertension * diabetes Plan: * Patient's computed tomography scan of the head is normal. * We will check carotid Doppler to rule out stenosis. * No other workup indicated. * Aggressive control of all stroke risk factors including hypertension, diabetes and hyperlipidemia.
--- NOTE | 2020-11-18 20:50 | US ---
EXAMINATION TYPE: US carotid duplex BILAT DATE OF EXAM: 11/18/2020 COMPARISON: NONE CLINICAL HISTORY: Altered mental status. EXAM MEASUREMENTS: RIGHT: Peak Systolic Velocity (PSV) cm/sec ----- Right CCA: 74.3 ----- Right ICA: 74.6 ----- Right ECA: 102.5 ICA/CCA ratio: 1.0 RIGHT: End Diastole cm/sec ----- Right CCA: 9.2 ----- Right ICA: 13.7 ----- Right ECA: 0.0 LEFT: Peak Systolic Velocity (PSV) cm/sec ----- Left CCA: 66.4 ----- Left ICA: 86.2 ----- Left ECA: 72.1 ICA/CCA ratio: 1.3 LEFT: End Diastole cm/sec ----- Left CCA: 7.5 ----- Left ICA: 15.7 ----- Left ECA: 5.6 VERTEBRALS (direction of flow): Right Vertebral: Antegrade Left Vertebral: Antegrade Rhythm: Normal Bilateral intimal thickening, minimal plaque bilateral bulb, no elevated velocities, no significant s tenosis. IMPRESSION: No hemodynamically significant stenosis of the bilateral ICAs. Criteria for Assigning % of Stenosis / Diameter reduction (Estimation based on the indirect measurements of the internal carotid artery velocities (ICA PSV). 1. Normal (no stenosis)=ICA PSV < 125 cm/s: ratio < 2.0: ICA EDV<40 cm/s. 2. Less than 50% stenosis=ICA PSV < 125 cm/s: ratio < 2.0: ICA EDV<40 cm/s. 3. 50 to 69% stenosis=ICA PSV of 125 to 230 cm/s: ration 2.0 ? 4.0: ICA EDV 40-100 cm/s. 4. Greater than 70% stenosis to near occlusion= ICA PSV > 230 cm/s: ratio > 4.0: ICA EDV > 100 cm/s. 5. Near occlusion= ICA PSV velocities may be low or undetectable: variable ratio and ICA EDV. 6. Total occlusion=unable to detect flow.
[2020-11-18 20:58] LABS: Glucose,Whole Blood 198 mg/dL (75-99)
[2020-11-18] MEDS: METOPROLOL TARTRATE 25 MG TAB PO SCH (22:58)
[2020-11-19 05:35] VITALS: PULSE 54
[2020-11-19] MEDS: amLODIPine 10 MG TAB PO SCH (05:54)
[2020-11-19] MEDS: METOPROLOL TARTRATE 25 MG TAB PO SCH (05:54)
[2020-11-19 06:19] LABS: Glucose,Whole Blood 88 mg/dL (75-99)
[2020-11-19] MEDS ORDERED: HEPARIN SODIUM,PORCINE 2,500 UNIT in SODIUM CHLORIDE 0.9% 250 ML IRRIGATION PRN (07:00)
[2020-11-19] MEDS ORDERED: HEPARIN SODIUM,PORCINE 10,000 UNIT in SODIUM CHLORIDE 0.9% 1,000 ML IRRIGATION PRN (07:00)
[2020-11-19 08:14] LABS: African American GFR (CKD) >90 (>60 ml/min/1.73 sqM); Anion Gap 4 mmol/L; Blood Urea Nitrogen 9 mg/dL (9-20); Calcium 9.2 mg/dL (8.4-10.2); Carbon Dioxide 29 mmol/L (22-30); Chloride 106 mmol/L (98-107); Glucose 89 mg/dL (74-99); Non-African American GFR(CKD) 85 (>60 ml/min/1.73 sqM); Potassium 3.8 mmol/L (3.5-5.1); Sodium 139 mmol/L (137-145)
[2020-11-19] MEDS: VIT A,C & E-LUTEIN-MINERALS 1 EACH TAB PO SCH (08:14)
[2020-11-19] MEDS: MULTIVITAMINS, THERA 1 EACH TAB PO SCH (08:14)
[2020-11-19] MEDS: INSULIN ASPART (NovoLOG) 100 UNIT/ML VIAL SQ SCH ×2 (08:15→12:22)
[2020-11-19 08:17] VITALS: BP 149/70; TEMP 97.9
[2020-11-19] MEDS ORDERED: ASPIRIN 81 MG PO SCH (09:00)
[2020-11-19] MEDS ORDERED: fentaNYL (PF) 50 MCG/ML 2 ML AMP ONE (10:26)
[2020-11-19] MEDS ORDERED: LIDOCAINE 1% INJ 10MG/ML (20 ML MDV) ONE (10:26)
[2020-11-19] MEDS ORDERED: VERAPAMIL 2.5 MG/ML 2 ML AMP ONE (10:28)
[2020-11-19] MEDS ORDERED: MIDAZOLAM 2 MG/2 ML VIAL IV ONE (10:30)
[2020-11-19] MEDS ORDERED: fentaNYL (PF) 50 MCG/ML 2 ML AMP IV ONE (10:30)
[2020-11-19] MEDS ORDERED: LIDOCAINE 1% INJ 10MG/ML (20 ML MDV) SQ ONE (10:32)
[2020-11-19] MEDS: VERAPAMIL SYRINGE (5 MG/10 ML) INTRAARTER ONE ×2 (10:35→10:43)
[2020-11-19] MEDS ORDERED: IOPAMIDOL-370 125ML BTL INJ ONE (10:39)
[2020-11-19] MEDS ORDERED: HEPARIN SODIUM 1,000 UN/ML (10ML VL) ONE (10:40)
[2020-11-19] MEDS ORDERED: IV FLUID CONTINUATION 800 ML IV ONE (10:43)
[2020-11-19 11:34] LABS: Glucose,Whole Blood 81 mg/dL (75-99)
[2020-11-19] MEDS: HEPARIN SOD,PORK IN 0.45% NACL 25,000 UNIT in 0.45% NACL 1 250ML.BAG IV SCH (12:23)
[2020-11-19] MEDS: SODIUM CHLORIDE 0.9% 1,000 ML IV SCH (12:23)
--- NOTE | 2020-11-19 13:04 | P.PN ---
Subjective Progress Note Date: 11/18/20 Principal diagnosis: Acute non-ST elevated NE Patient is a 83-year-old male with a known history of hypertension, diabetes type 2 [id number] presents to ER with complaints of chest pain left retrosternal after helping his with a vacuum shallot cleaner. Patient had break fast and was sitting in the chair. Suddenly he developed squeezing type chest pain 10 out of 10 in severity lasting for about an hour. Patient was given aspirin and nitro in the ER which seemed to help his pain. Currently denied any complaints of chest pain. Chest pain was associated with mild shortness of breath. No nausea vomiting or diaphoresis. Denied any recent illnesses. No prior history of heart disease or coronary artery disease. No cough or sputum production. No nausea vomiting or abdominal pain or diarrhea. Chest x-ray showed no acute process. Correlate for COPD CT angiogram of the chest was done which showed some breathing artifact at the right base limiting assessment of some of the basilar segment and more distal arterial branches here. Otherwise no PE. Dense mitral annular calcifications. Underlying pulmonary arterial hypertension. Prior granulomatous disease. Pulmonary nodules on the right measures up to 6 mm and are noncalcified. 6-month follow-up CT chest recommended to assess. Small hiatal hernia. D-dimer 0.95, sodium 136, blood sugar is 294 11/18/2020 Patient is currently awake and alert. Today morning patient was confused and possible stroke versus TIA is being considered. CT head is negative. Neurology was consulted. Patient did have elevated troponin level and the second set. Cardiology has seen the patient and is planning for catheterization which was postponed for tomorrow due to altered mental status today. Mentation is at baseline now. Patient has been afebrile. No cough or sputum production. No nausea vomiting or abdominal pain or diarrhea. Current medications reviewed. Objective - Vital Signs Vital signs: Vital Signs Temp 97.3 F L 11/18/20 15:00 Pulse 62 11/18/20 15:00 Resp 18 11/18/20 15:00 BP 180/81 11/18/20 15:00 Pulse Ox 96 11/18/20 15:00 Intake & Output 11/17/20 11/18/20 11/18/20 18:59 06:59 18:59 Intake Total 142.828 71.249 Output Total 1300 1100 Balance -1157.172 -1028.751 Weight 72.575 kg Intake: Intake, IV Titration 142.828 71.249 Amount Heparin Sod,Pork in 0.45% 142.828 71.249 NaCl 25,000 unit In 0.45 % NaCl 1 250ml.bag @ 12 UNITS/KG/HR 8.709 mls/hr IV .Q24H KITTY Rx#: [id number] Output: Urine 1300 1100 Other: Voiding Method Toilet Toilet # Voids 3 - Exam PHYSICAL EXAMINATION: Patient is lying in the bed comfortably, no acute distress, awake alert and oriented.. HEENT: Normocephalic. Neck is supple. Pupils reactive. Nostrils clear. Oral cavity is moist. Ears reveal no drainage. Neck reveals no JVD, carotid bruits, or thyromegaly. CHEST EXAMINATION: Trachea is central. Symmetrical expansion. Lung wall clear to auscultation and percussion. CARDIAC: Normal S1, S2 with no gallops. No murmurs ABDOMEN: Soft. Bowel sounds normal. No organomegaly. No abdominal bruits. Extremities: reveal no edema. No clubbing or cyanosis Neurologically awake, alert, oriented x3 with well-coordinated movements. No focal deficits noted Skin: No rash or skin lesions. Psychiatric: Coperative. Nonsuicidal Musculoskeletal: No joint swelling or deformity. Normal range of motion. - Labs CBC & Chem 7: 11/18/20 06:07 11/19/20 07:22 Labs: Abnormal Lab Results - Last 24 Hours (Table) 11/17/20 11/17/20 11/17/20 Range/Units 17:39 17:56 20:03 RBC (4.30-5.90) m/uL APTT 45.3 H (22.0-30.0) sec Chloride (98-107) mmol/L BUN (9-20) mg/dL POC Glucose (mg/dL) 286 H (75-99) mg/dL Troponin I 2.620 H* (0.000-0.034) ng/mL HDL Cholesterol (40-60) mg/dL 11/17/20 11/18/20 11/18/20 Range/Units 22:30 06:07 06:07 RBC (4.30-5.90) m/uL APTT 42.4 H (22.0-30.0) sec Chloride (98-107) mmol/L BUN (9-20) mg/dL POC Glucose (mg/dL) 125 H (75-99) mg/dL Troponin I (0.000-0.034) ng/mL HDL Cholesterol 76 H (40-60) mg/dL 11/18/20 11/18/20 11/18/20 Range/Units 06:07 06:07 11:44 RBC 4.22 L (4.30-5.90) m/uL APTT (22.0-30.0) sec Chloride 108 H (98-107) mmol/L BUN 8 L (9-20) mg/dL POC Glucose (mg/dL) 113 H (75-99) mg/dL Troponin I (0.000-0.034) ng/mL HDL Cholesterol (40-60) mg/dL 11/18/20 Range/Units 13:19 RBC (4.30-5.90) m/uL APTT (22.0-30.0) sec Chloride (98-107) mmol/L BUN (9-20) mg/dL POC Glucose (mg/dL) 162 H (75-99) mg/dL Troponin I (0.000-0.034) ng/mL HDL Cholesterol (40-60) mg/dL Assessment and Plan Assessment: Chest pain due to non-ST elevated NE with elevated troponin level.. Hypertensive emergency on admission with blood pressure 210/82 6 mm right lung nodule. Follow-up CT in 6 months. Small hiatal hernia Diabetes type 2 [id number] Hyperglycemia with uncontrolled diabetes type 2 Elevated D-dimer level without evidence of PE on CTA DVT prophylaxis patient is already on heparin drip Plan: Patient will be continued on telemetry monitoring. Heparin has been discontinued and cardiology is planning for catheterization.. Continue with home blood pressure medications. Blood pressure is trending down. Insulin sliding scale for better blood sugar control. further recommendations based on the clinical course. Discussed with his daughter at bedside. Prognosis guarded at this time. Time with Patient: Greater than 30
--- NOTE | 2020-11-19 19:24 | P.CARDCATH ---
Description of Procedure: PROCEDURES PERFORMED: Bilateral coronary angiography INDICATION: Non-STEMI HISTORY: Patient is a pleasant 85-year-old male with history of hypertension and diabetes who presents for chest pain that occurred while he was vacuuming. He does have some stress at home caring for his with Parkinson's. He presented to emergency department was found to have non-STEMI with troponins 0.031, 1.24 and 2.6. His chest pain resolved. He did have some confusion yesterday concerning for stroke however CT showed no bleed and no acute process. CONSENT:I have discussed the risks, benefits and alternative therapies for the above-mentioned procedure and for both sedation/analgesia as well as necessary blood product administration, if indicated, as they pertain to this patient. The patient has indicated understanding and acceptance of the risks and procedures discussed. PROCEDURE: After the risks, benefits and alternatives of the above mentioned procedure explained in detail with the patient, informed consent was obtained. Patient was taken to the catheterization lab and prepped and draped in usual fashion. 1% lidocaine was used to anesthetize the right radial artery. A 6- Ugandan sheath was placed in the right radial artery using modified Seldinger technique. Left coronary angiography was performed with a 5-Ugandan JL 3.5 catheter and right coronary angiography was performed with a 5-Ugandan JR5 catheter in various views. The right radial sheath was removed and a TR band was placed with hemostasis achieved. The patient tolerated the procedure well. Patient was transported back to the post catheterization holding area in stable condition. Conscious Sedation: Patient was monitored under the direct supervision of vision of myself for conscious sedation using Versed and fentanyl for a total duration of 14 minutes HEMODYNAMICS: Aorta: 122/78 SELECTIVE CORONARY ARTERIOGRAPHY: LEFT MAIN: The left main is a large caliber vessel which bifurcates into the LAD and circumflex. There is no significant stenosis. LEFT ANTERIOR DESCENDING CORONARY ARTERY: LAD is a large caliber vessel which wraps around to the apex. There are mild luminal irregularities with 10-20% stenosis. LEFT CIRCUMFLEX CORONARY ARTERY: Left circumflex is a moderate caliber vessel without significant stenosis. RIGHT CORONARY ARTERY: The right coronary artery is a large caliber vessel which gives off a PDA and PLV branch and is the dominant vessel. There are mild luminal irregularities with up to 20% stenosis. FINAL IMPRESSION: 1. Only mild luminal irregularities without any obstructive disease noted 2. Non-STEMI, may be recovered Takotsubo's cardiomyopathy or myocarditis however preserved EF 55-60% on echo. PLAN: 1. Aggressive risk factor modification per most recent ACC/AHA guidelines. No significant disease to explained elevated troponins. Echocardiogram showed normal ejection fraction. Continue with medical therapy. Patient appears stable for discharge home. 2. Follow-up in the office in 1-2 weeks.
== END 2020-11-19 16:16 | disposition home or self-care (01) | DRG 281 ==
LOC: EC 10:24 → 1SOBS 14:04 → 3SCARD 20:18 → OBSVTOIN 11-18 14:54
PROVIDERS: ADMIT Internal Medicine; ATTEND Internal Medicine
PROC: B211YZZ Fluoroscopy of Multiple Coronary Arteries using Other Contrast (ICD-10-PCS; principal; 2020-11-19 10:00)
DX: I21.4 Non-ST elevation (NSTEMI) myocardial infarction (principal); I16.1 Hypertensive emergency; I51.81 Takotsubo syndrome; I20.0 Unstable angina; I10 Essential (primary) hypertension; I27.21 Secondary pulmonary arterial hypertension; K44.9 Diaphragmatic hernia without obstruction or gangrene; R91.8 Other nonspecific abnormal finding of lung field; E11.65 Type 2 diabetes mellitus with hyperglycemia; R91.1 Solitary pulmonary nodule; I35.8 Other nonrheumatic aortic valve disorders; R41.82 Altered mental status, unspecified; D71 Functional disorders of polymorphonuclear neutrophils; R79.89 Other specified abnormal findings of blood chemistry; Z79.82 Long term (current) use of aspirin; Z79.899 Other long term (current) drug therapy; Z79.84 Long term (current) use of oral hypoglycemic drugs; Z90.89 Acquired absence of other organs; Z98.890 Other specified postprocedural states
CPT/HCPCS: 36415; 70450; 71046; 71275; 80048; 80053; 80061; 82550; 83690; 83735; 83880; 84484; 85025; 85379; 85610; 85730; 93005; 93306; 93454; 93880; 99291

== ENCOUNTER 2021-07-28 15:26 | Emergency (ER) | payer MEDICARE, BC ==
[2021-07-28 20:09] LABS: Basophils % (A) 1 %; Eosinophils # (A) 0.6 k/uL (0-0.7); Eosinophils % (A) 9 %; HCT 40.2 % (39.0-53.0); HGB 14.2 gm/dL (13.0-17.5); Lymphocytes # (A) 1.4 k/uL (1.0-4.8); Lymphocytes % (A) 19 %; MCH 31.9 pg (25.0-35.0); MCHC 35.2 g/dL (31.0-37.0); MCV 90.6 fL (80.0-100.0); Mean Platelet Volume 8.5; Monocytes # (A) 0.4 k/uL (0-1.0); Monocytes % (A) 6 %; Neutrophils # (A) 4.5 k/uL (1.3-7.7); Neutrophils % (A) 63 %; Platelet Count 209 k/uL (150-450); RBC 4.44 m/uL (4.30-5.90); RDW 12.7 % (11.5-15.5); WBC 7.1 k/uL (3.8-10.6)
[2021-07-28 20:13] LABS: ALT 19 U/L (4-49); AST 34 U/L (17-59); African American GFR (CKD) >90 (>60 ml/min/1.73 sqM); Albumin 4.2 g/dL (3.5-5.0); Alkaline Phosphatase 185 U/L (38-126); Anion Gap 8 mmol/L; Blood Urea Nitrogen 8 mg/dL (9-20); Calcium 9.6 mg/dL (8.4-10.2); Carbon Dioxide 27 mmol/L (22-30); Chloride 98 mmol/L (98-107); Glucose 169 mg/dL (74-99); Magnesium 2.1 mg/dL (1.6-2.3); Non-African American GFR(CKD) 89 (>60 ml/min/1.73 sqM); Potassium 4.5 mmol/L (3.5-5.1); Sodium 133 mmol/L (137-145); Total Bilirubin 0.8 mg/dL (0.2-1.3); Total Protein 7.5 g/dL (6.3-8.2)
[2021-07-28 20:14] LABS: INR 1.1 (<1.2); Partial Thromboplastin Time 28.2 sec (22.0-30.0); Prothrombin Time 11.1 sec (9.0-12.0)
--- NOTE | 2021-07-28 21:07 | XR ---
EXAMINATION TYPE: XR chest 2V DATE OF EXAM: 07/28/2021 COMPARISON: Chest radiograph 11/17/2020 HISTORY: Chest pain. TECHNIQUE: Frontal and lateral views of the chest are obtained. FINDINGS: There is no focal air space opacity, pleural effusion, or pneumothorax seen. The cardiac silhouette size is within normal limits. There is prominence of the pulmonary vasculature similar to prior. The osseous structures are intact. IMPRESSION: No acute cardiopulmonary process.
--- NOTE | 2021-07-28 21:12 | XR ---
EXAMINATION TYPE: XR elbow complete LT DATE OF EXAM: 07/28/2021 CLINICAL HISTORY: Left elbow pain and swelling. TECHNIQUE: Frontal, lateral and oblique images of the left elbow are obtained. COMPARISON: None FINDINGS: There is swelling of the posterior soft tissue of the elbow. A tiny ossific fragment at th e lateral margin of the lateral epicondyle is likely chronic. There is no acute fracture/dislocation evident in the left elbow. No abnormal fat pad signs are seen. No radiopaque foreign body. IMPRESSION: 1. There is swelling of the posterior soft tissue of the elbow without acute fracture or dislocation . Joint effusion. 2. A tiny ossific fragment at the lateral margin of the lateral epicondyle is likely chronic, correl ate for point tenderness.
[2021-07-28] MEDS ORDERED: hydrOXYzine HCL 25 MG TAB PO STA (21:13)
[2021-07-28] MEDS ORDERED: predniSONE 50 MG TAB PO STA (21:13)
--- NOTE | 2021-07-28 21:37 | ED ---
General Adult HPI - General Chief complaint: Skin/Abscess/Foreign Body Stated complaint: Rash Time Seen by Provider: 07/28/21 19:01 Source: patient Mode of arrival: ambulatory Limitations: no limitations - History of Present Illness Initial comments: 86-year-old male presents to the emergency department with a chief complaint of a rash. States the rash has been persistent for several years and they have been seeing multiple physicians including a engineering manager electronics. She states the rash appears to be dry and scaly. She states it comes and goes. She states that it improves with steroids but never fully resolves. States now it is worsening over the last week. States over the last 2 days the patient is also noted bilateral lower extremity edema. States a went to the primary care physician who advised him to come to the emergency department for evaluation and symptomatically relief for the itching. He also advised him to come to the emergency department because the patient had some swelling in his left ring finger and to have his ring finger cut off. They also wanted an x-ray of his elbow. Patient also reports she bumped his left elbow several days ago and now he has developed mild swelling to the region. However, he denies any parest hesias or weakness to the left elbow. He denies any chest pain or shortness of breath. Denies any renal impairment. Denies any fevers or chills. - Related Data Home Medications Medication Instructions Recorded Confirmed Aspirin EC [Ecotrin Low Dose] 81 mg PO DAILY 11/17/20 11/17/20 Multivitamins, Thera [Multivitamin 1 tab PO DAILY 11/17/20 11/17/20 (formulary)] Vit C/E/Zn/Coppr/Lutein/Zeaxan 1 cap PO DAILY 11/17/20 11/17/20 [Preservision Areds 2 Softgel] amLODIPine [Norvasc] 10 mg PO DAILY 11/17/20 11/17/20 metFORMIN HCL [Glucophage] 500 mg PO BID 11/17/20 11/17/20 Previous Rx's Medication Instructions Recorded Metoprolol Tartrate [Lopressor] 25 mg PO BID #60 tab 11/19/20 Nitroglycerin Sl Tabs [Nitrostat] 0.4 mg SUBLINGUAL Q5M PRN #30 tab 11/19/20 predniSONE 50 mg PO DAILY #5 tab 07/28/21 Allergies Allergy/AdvReac Type Severity Reaction Status Date / Time No Known Allergies Allergy Verified 07/28/21 16:22 Review of Systems ROS Statement: Those systems with pertinent positive or pertinent negative responses have been documented in the HPI. ROS Other: All systems not noted in ROS Statement are negative. Past Medical History Past Medical History: Hypertension Additional Past Medical History / Comment(s): taks oral DM rx History of Any Multi-Drug Resistant Organisms: None Reported Past Surgical History: Hernia Repair, Tonsillectomy Past Anesthesia/Blood Transfusion Reactions: No Reported Reaction Past Psychological History: No Psychological Hx Reported Smoking Status: Never smoker Past Alcohol Use History: None Reported Past Drug Use History: None Reported General Exam Limitations: no limitations General appearance: alert, in no apparent distress Head exam: Present: atraumatic, normocephalic, normal inspection Eye exam: Present: normal appearance, PERRL, EOMI Pupils: Present: normal accommodation ENT exam: Present: normal exam, normal oropharynx, mucous membranes moist Neck exam: Present: normal inspection, full ROM. Absent: tenderness, l ymphadenopathy Respiratory exam: Present: normal lung sounds bilaterally. Absent: respiratory distress, wheezes, rales, rhonchi, stridor Cardiovascular Exam: Present: regular rate, normal rhythm, normal heart sounds GI/Abdominal exam: Present: soft. Absent: distended, tenderness, guarding, rebound Extremities exam: Present: normal inspection (Bursitis left elbow), full ROM, normal capillary refill, pedal edema (+2 pitting edema bilaterally.) Back exam: Present: normal inspection, full ROM. Absent: tenderness Neurological exam: Present: alert, oriented X3 Psychiatric exam: Present: normal affect, normal mood Skin exam: Present: warm, dry, intact, normal color, rash, other (Eczematous, scaly rash on arms, legs, trunk.) Course Vital Signs 07/28/21 16:17 Temperature 98.3 F Pulse Rate 66 Respiratory 20 Rate Blood Pressure 166/69 O2 Sat by Pulse 95 Oximetry EKG Findings - EKG Comments: EKG Findings:: Sinus rhythm. Ventricular rate 73, MD 168, QRS 96, QTC 449. Medical Decision Making - Medical Decision Making 86-year-old male presenting to the emergency department with a chief complaint of a rash. This is a chronic rash that has been ongoing for the past several years and the patient is underwent multiple biopsies and has seen a engineering manager electronics. They have not seem to figure out what source of the rash is. Patient is typically treated with steroids. This rash is itchy and not painful. On exam he looks eczematous with scales and it appeared dry. I gave the patient Atarax for the itching. The daughter requested prednisone to help decrease the rash. I will start him on prednisone 50 mg here. We'll discharge him with 5 days of prednisone which is typical for him whenever he has exacerbation of the rash. Troponin is negative. BNP is 225 which is acceptable for his age. X-ray of the left elbow shows some soft tissue swelling but no other acute findings. There is also a chronic finding in the left elbow of a small ossification fragment. Patient does appear to have bursitis. I will apprise an Jaydon wrap to the region. I advised him to follow with order processing specialist for the symptoms not improve. Return parameters were thoroughly discussed with patient who is under standing and agreeable. Case discussed with physician. - Lab Data Result diagrams: 07/28/21 19:53 07/28/21 19:53 Lab Results 07/28/21 07/28/21 07/28/21 Range/Units 19:53 19:53 19:53 WBC 7.1 (3.8-10.6) k/uL RBC 4.44 (4.30-5.90) m/uL Hgb 14.2 (13.0-17.5) gm/dL Hct 40.2 (39.0-53.0) % MCV 90.6 (80.0-100.0) fL MCH 31.9 (25.0-35.0) pg MCHC 35.2 (31.0-37.0) g/dL RDW 12.7 (11.5-15.5) % Plt Count 209 (150-450) k/uL MPV 8.5 Neutrophils % 63 % Lymphocytes % 19 % Monocytes % 6 % Eosinophils % 9 % Basophils % 1 % Neutrophils # 4.5 (1.3-7.7) k/uL Lymphocytes # 1.4 (1.0-4.8) k/uL Monocytes # 0.4 (0-1.0) k/uL Eosinophils # 0.6 (0-0.7) k/uL Basophils # 0.0 (0-0.2) k/uL PT 11.1 (9.0-12.0) sec INR 1.1 (<1.2) APTT 28.2 (22.0-30.0) sec Sodium 133 L (137-145) mmol/L Potassium 4.5 (3.5-5.1) mmol/L Chloride 98 (98-107) mmol/L Carbon Dioxide 27 (22-30) mmol/L Anion Gap 8 mmol/L BUN 8 L (9-20) mg/dL Creatinine 0.65 L (0.66-1.25) mg/dL Est GFR (CKD-EPI)AfAm >90 (>60 ml/min/1.73 sqM) Est GFR (CKD-EPI)NonAf 89 (>60 ml/min/1.73 sqM) Glucose 169 H (74-99) mg/dL Calcium 9.6 (8.4-10.2) mg/dL Magnesium 2.1 (1.6-2.3) mg/dL Total Bilirubin 0.8 (0.2-1.3) mg/dL AST 34 (17-59) U/L ALT 19 (4-49) U/L Alkaline Phosphatase 185 H (38-126) U/L Troponin I (0.000-0.034) ng/mL NT-Pro-B Natriuret Pep pg/mL Total Protein 7.5 (6.3-8.2) g/dL Albumin 4.2 (3.5-5.0) g/dL 07/28/21 07/28/21 Range/Units 19:53 19:53 WBC (3.8-10.6) k/uL RBC (4.30-5.90) m/uL Hgb (13.0-17.5) gm/dL Hct (39.0-53.0) % MCV (80.0-100.0) fL MCH (25.0-35.0) pg MCHC (31.0-37.0) g/dL RDW (11.5-15.5) % Plt Count (150-450) k/uL MPV Neutrophils % % Lymphocytes % % Monocytes % % Eosinophils % % Basophils % % Neutrophils # (1.3-7.7) k/uL Lymphocytes # (1.0-4.8) k/uL Monocytes # (0-1.0) k/uL Eosinophils # (0-0.7) k/uL Basophils # (0-0.2) k/uL PT (9.0-12.0) sec INR (<1.2) APTT (22.0-30.0) sec Sodium (137-145) mmol/L Potassium (3.5-5.1) mmol/L Chloride (98-107) mmol/L Carbon Dioxide (22-30) mmol/L Anion Gap mmol/L BUN (9-20) mg/dL Creatinine (0.66-1.25) mg/dL Est GFR (CKD-EPI)AfAm (>60 ml/min/1.73 sqM) Est GFR (CKD-EPI)NonAf (>60 ml/min/1.73 sqM) Glucose (74-99) mg/dL Calcium (8.4-10.2) mg/dL Magnesium (1.6-2.3) mg/dL Total Bilirubin (0.2-1.3) mg/dL AST (17-59) U/L ALT (4-49) U/L Alkaline Phosphatase (38-126) U/L Troponin I <0.012 (0.000-0.034) ng/mL NT-Pro-B Natriuret Pep 277 pg/mL Total Protein (6.3-8.2) g/dL Albumin (3.5-5.0) g/dL Disposition Clinical Impression: Pruritic erythematous rash, Bursitis Disposition: HOME SELF-CARE Condition: Stable Instructions (If sedation given, give patient instructions): Elbow Bursitis (ED) Additional Instructions: Follow-up with order processing specialist. Return to emergency department if symptoms worsen. Prescriptions: predniSONE 50 mg PO DAILY #5 tab Is patient prescribed a controlled substance at d/c from ED?: No Referrals: Cecilio Ackerman MD [Primary Care Provider] - 1-2 days Herbert Harp MD [Medical Doctor] - 1-2 days Time of Disposition: 21:24
[2021-07-28 21:56] VITALS: BP 151/86; PULSE 68; RESP 18; TEMP 97.8
== END 2021-07-28 21:54 | disposition home or self-care (01) ==
LOC: EC 15:26
DX: R21 Rash and other nonspecific skin eruption (principal); M70.32 Other bursitis of elbow, left elbow; I10 Essential (primary) hypertension; Z79.82 Long term (current) use of aspirin; Z79.84 Long term (current) use of oral hypoglycemic drugs; Z90.89 Acquired absence of other organs
CPT/HCPCS: 99283; 36415; 93005; 83880; 80053; 83735; 84484; 85025; 85610; 85730; 73080; 71046; J7512

== ENCOUNTER 2024-09-09 15:14 | Inpatient (IN) | payer BC, MEDICARE ==
[2024-09-09 16:00] LABS: Basophils % (A) 0 %; Eosinophils # (A) 0.6 k/uL (0-0.7); Eosinophils % (A) 5 %; HCT 39.2 % (39.0-53.0); HGB 13.2 gm/dL (13.0-17.5); Lymphocytes # (A) 1.1 k/uL (1.0-4.8); Lymphocytes % (A) 10 %; MCH 30.9 pg (25.0-35.0); MCHC 33.6 g/dL (31.0-37.0); MCV 91.9 fL (80.0-100.0); Mean Platelet Volume 7.7; Monocytes # (A) 0.5 k/uL (0-1.0); Monocytes % (A) 5 %; Neutrophils # (A) 8.9 k/uL (1.3-7.7); Neutrophils % (A) 79 %; Platelet Count 211 k/uL (150-450); RBC 4.27 m/uL (4.30-5.90); RDW 12.7 % (11.5-15.5); WBC 11.3 k/uL (3.8-10.6)
[2024-09-09 16:10] LABS: INR 1.1 (<1.2); Partial Thromboplastin Time 30.2 sec (22.0-30.0); Prothrombin Time 11.8 sec (10.0-12.5)
--- NOTE | 2024-09-09 16:17 | ED ---
General Adult HPI - General Chief complaint: Weakness Stated complaint: weakness Time Seen by Provider: 09/09/24 15:21 Source: patient, EMS, RN notes reviewed, old records reviewed Mode of arrival: EMS - History of Present Illness Initial comments: Patient is an 89-year-old male presents emergency department for weakness, fall. Patient has a history of dementia. His who normally lives with him is currently in a rehab facility and he has home health care coming to his house. Patient was home alone today which does not happen often when he ended up on the bathroom floor. Patient cannot exactly recall the event. States he felt lightheaded when it occurred and ended up on the ground. Denies any injuries. Unknown if he lost consciousness. Denies chest pain or shortness of breath. Patient has been having worsening bilateral lower extremity edema. He does have a history of mild dementia. Also history of hypertension. Is not on blood thinners. Presents for further evaluation at this time.Patient has noticed that over the last few weeks he has been feeling more weak. Family has noticed it as well and his daughter is at bedside who helps with the history. States they have noticed the weakness worse over the last few weeks. Usually ambulates with a walker at baseline. They have also noticed occasionally swelling in lower extremities. They are seeking placement. - Related Data Home Medications Medication Instructions Recorded Confirmed amLODIPine [Norvasc] 10 mg PO DAILY 11/17/20 09/09/24 Losartan Potassium 50 mg PO DAILY 09/09/24 09/09/24 QUEtiapine [SEROquel] 25 mg PO HS 09/09/24 09/09/24 Tamsulosin [Flomax] 0.4 mg PO HS 09/09/24 09/09/24 hydrOXYzine HCL [Atarax] 50 mg PO BID 09/09/24 09/09/24 hydroCHLOROthiazide [Hydrodiuril] 12.5 mg PO DAILY 09/09/24 09/09/24 metFORMIN HCL 1,000 mg PO BID 09/09/24 09/09/24 Previous Rx's Medication Instructions Recorded Nitroglycerin Sl Tabs [Nitrostat] 0.4 mg SUBLINGUAL Q5M PRN #30 tab 11/19/20 Allergies Allergy/AdvReac Type Severity Reaction Status Date / Time No Known Allergies Allergy Verified 09/09/24 15:47 Review of Systems ROS Statement: Those systems with pertinent positive or pertinent negative responses have been documented in the HPI. Review of Systems: CONST: Denies fever EYES: Denies blurry vision ENT: Denies nasal congestion C/V: Denies Chest pain RESP: Denies shortness of breath GI: Denies abdominal pain : Denies dysuria SKIN: Denies rash. MSK: Denies joint pain. NEURO: Denies headache ROS Other: All systems not noted in ROS Statement are negative. Past Medical History Past Medical History: Hypertension Additional Past Medical History / Comment(s): taks oral DM rx History of Any Multi-Drug Resistant Organisms: None Reported Past Surgical History: Hernia Repair, Tonsillectomy Past Anesthesia/Blood Transfusion Reactions: No Reported Reaction Past Psychological History: No Psychological Hx Reported Smoking Status: Never smoker Past Alcohol Use History: None Reported Past Drug Use History: None Reported General Exam - General Exam Comments Initial Comments: General: Appears in no acute distress. HEAD: Normal with no signs of head trauma. Negative tomas signs. Negative raccoon eyes. EYES: EOMI. Conjunctiva normal. 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 This is chronic for the patient per the patient's daughter. Right pupil is 3 mm and reactive to light. ENT: Hearing grossly intact, normal oropharynx. RESPIRATORY: Clear breath sounds bilaterally. No wheezes, rales, or rhonchi. C/V: Regular rate and rhythm. S1 and S2 auscultated, mildly symmetrical taz matous legs., peripheral pulses 2+ and intact throughout ABD: Abd is soft, nontender, nondistended EXT: Normal range of motion, no obvious deformity. Pelvis is stable. No significant midline spinal tenderness to palpation. SKIN: No rashes or lesions observed on exposed skin. NEURO: Alert and oriented x 2 which is his baseline. No focal deficits.NIH is 0 for acute deficits. Course Vital Signs 09/09/24 09/09/24 09/09/24 15:15 16:21 18:39 Temperature 97.3 F L Pulse Rate 77 78 68 Respiratory 18 18 18 Rate Blood Pressure 188/86 186/81 179/91 O2 Sat by Pulse 96 95 94 L Oximetry Medical Decision Making - Medical Decision Making Was pt. sent in by a medical professional or institution (, PA, MANAGER GENERAL, urgent care, hospital, or penitentiary...) When possible be specific @ -No Did you speak to anyone other than the patient for history (EMS, parent, family, police, friend...)? What history was obtained from this source @ -Patient's daughter is a primary historian for the patient and assist with the patient's past medical history. Did you review nursing and triage notes (agree or disagree)? Why? @ -I reviewed and agree with nursing and triage notes Were old charts reviewed (outside hosp., previous admission, EMS record, old EKG, old radiological studies, urgent care reports/EKG's, penitentiary records)? Report findings @ -Reviewed EKG from July 2021 and compared to today's EKG. No significant dynamic changes between the 2. Differential Diagnosis (chest pain, altered mental status, abdominal pain women, abdominal pain men, vaginal bleeding, weakness, fever, dyspnea, syncope, headache, dizziness, GI bleed, back pain, seizure, CVA, palpatations, mental health, musculoskeletal)? @ -Differential Weakness: Hypoglycemia, shock, sepsis, hyponatremia, anemia, infection, DE, ETOH, adverse medicine reaction, overdose, stroke, this is not meant to be an all-inclusive list. EKG interpreted by me (3pts min.). @ -As above X-rays interpreted by me (1pt min.). @ -Chest x-ray shows no obvious acute cardiopulmonary process.Pelvis x-ray shows no obvious acute process. CT interpreted by me (1pt min.). @ -CT brain, C-spine reveals no obvious acute injury. CT brain does show a left giacomo hypodensity which is new from a CT from November 2020 per radiology. Patient also has a remote left fregoso radiata injury. They recommend further eval for MRI, and recommend clinical correlation for subacute stroke. U/S interpreted by me (1pt. min.). @ -None done What testing was considered but not performed or refused? (CT, X-rays, U/S, labs)? Why? @ -None What meds were considered but not given or refused? Why? @ -None Did you discuss the management of the patient with other professionals (professionals i.e. , PA, MANAGER GENERAL, lab, RT, psych nurse, social worker delinquency prevention, engineering and operations director, teacher, appeals officer, watch caser)? Give summary @ -Discussed with neurology Dr. Sheffield was in agreement the plan for admission and MRI without contrast of the brain. Discussed the case with admitting provider, Dr. Alvarez who accepted the admission. Was smoking cessation discussed for >3mins.? @ -No Was critical care preformed (if so, how long)? @ -No Were there social determinants of health that impacted care today? How? (Homelessness, low income, unemployed, alcoholism, drug addiction, transportation, low edu. Level, literacy, decrease access to med. care, [facility], rehab)? @ -No Was there de-escalation of care discussed even if they declined (Discuss DNR or withdrawal of care, Hospice)? DNR status @ -No What co-morbidities impacted this encounter? (DM, HTN, Smoking, COPD, CAD, Cancer, CVA, ARF, Chemo, Hep., AIDS, mental health diagnosis, sleep apnea, morbid obesity)? @ -None Was patient admitted / discharged? Hospital course, mention meds given and route, prescriptions, significant lab abnormalities, going to OR and other pertinent info. @ -Based on patient's presentation and physical exam, presents emergency department after multiple weeks of weakness, as well as a fall at home. Has a history of dementia. Has no other acute complaints at this time. Denies any injuries from the fall. We will obtain broad workup. He is currently at his mental status baseline however we will obtain CT brain and C-spine in addition to the chest and pelvis x-rays. Patient was in agreement this plan. Patient's daughter was in agreement this plan. Vitals are currently within acceptable limits. EKG shows no signs of acute ischemia.Imaging remarkable for left giacomo hypodensity of unknown etiology with potential for possible subacute CVA. Remainder the imaging unremarkable. EKG unremarkable. Laboratory studies remarkable for mild lactic acidosis of 2.4 likely secondary to dehydration. Remainder the workup unremarkable. I discussed the results of the CT with the patient. Patient has been having weakness symptoms for multiple weeks and is feeling improved currently. NIH is 0 for any acute symptoms. Patient is chronically ANO x 2 and is at his baseline. I do not have concern for acute CVA at this time as there are no focal deficits present. I updated the patient and family at this time. They were in agreement plan for admission. Patient given 325 mg of aspirin. I spoke with neurology who was in agreement with the plan for MRI and consult. No further recommendations at this time. I spoke with the admitting provider, Dr. Alvarez who accepted the admission. Consults placed to OT, PT, social work Undiagnosed new problem with uncertain prognosis? @ -No Drug Therapy requiring intensive monitoring for toxicity (Heparin, Nitro, Insulin, Cardizem)? @ -No Were any procedures done? @ -No Diagnosis/symptom? @ -Weakness, debility, lesion of left giacomo Acute, or Chronic, or Acute on Chronic? @ -Acute Uncomplicated (without systemic symptoms) or Complicated (systemic symptoms)? @ -Complicated Side effects of treatment? @ -None Exacerbation, Progression, or Severe Exacerbation] @ -No Poses a threat to life or bodily function? @ -Potentially, yes - Lab Data Result diagrams: 09/09/24 15:46 09/09/24 15:46 Lab Results 09/09/24 09/09/24 09/09/24 Range/Units 15:46 15:46 15:46 WBC 11.3 H (3.8-10.6) k/uL RBC 4.27 L (4.30-5.90) m/uL Hgb 13.2 (13.0-17.5) gm/dL Hct 39.2 (39.0-53.0) % MCV 91.9 (80.0-100.0) fL MCH 30.9 (25.0-35.0) pg MCHC 33.6 (31.0-37.0) g/dL RDW 12.7 (11.5-15.5) % Plt Count 211 (150-450) k/uL MPV 7.7 Neutrophils % 79 % Lymphocytes % 10 % Monocytes % 5 % Eosinophils % 5 % Basophils % 0 % Neutrophils # 8.9 H (1.3-7.7) k/uL Lymphocytes # 1.1 (1.0-4.8) k/uL Monocytes # 0.5 (0-1.0) k/uL Eosinophils # 0.6 (0-0.7) k/uL Basophils # 0.0 (0-0.2) k/uL PT 11.8 (10.0-12.5) sec INR 1.1 (<1.2) APTT 30.2 H (22.0-30.0) sec Sodium 134 L (137-145) mmol/L Potassium 4.4 (3.5-5.1) mmol/L Chloride 98 (98-107) mmol/L Carbon Dioxide 24 (22-30) mmol/L Anion Gap 12 mmol/L BUN 18 (9-20) mg/dL Creatinine 0.88 (0.66-1.25) mg/dL Est GFR (CKD-EPI)AfAm 89 (>60 ml/min/1.73 sqM) Est GFR (CKD-EPI)NonAf 77 (>60 ml/min/1.73 sqM) Glucose 294 H (74-99) mg/dL Lactic Ac Sepsis Rflx Plasma Lactic Acid Juan Miguel (0.7-2.0) mmol/L Calcium 9.6 (8.4-10.2) mg/dL Magnesium 1.7 (1.6-2.3) mg/dL Total Bilirubin 0.3 (0.2-1.3) mg/dL AST 25 (17-59) U/L ALT 15 (4-49) U/L Alkaline Phosphatase 185 H (38-126) U/L NT-Pro-B Natriuret Pep 557 pg/mL Total Protein 7.3 (6.3-8.2) g/dL Albumin 4.2 (3.5-5.0) g/dL Urine Color Urine Appearance (Clear) Urine pH (5.0-8.0) Ur Specific Putnam (1.001-1.035) Urine Protein (Negative) Urine Glucose (UA) (Negative) Urine Ketones (Negative) Urine Blood (Negative) Urine Nitrite (Negative) Urine Bilirubin (Negative) Urine Urobilinogen (<2.0) mg/dL Ur Leukocyte Esterase (Negative) Urine RBC (0-5) /hpf Urine WBC (0-5) /hpf Hyaline Casts (0-2) /lpf Urine Mucus (None) /hpf Influenza Type A (PCR) (Not Detectd) Influenza Type B (PCR) (Not Detectd) RSV (PCR) (Not Detectd) SARS-CoV-2 (PCR) (Not Detectd) 09/09/24 09/09/24 09/09/24 Range/Units 15:46 15:46 16:27 WBC (3.8-10.6) k/uL RBC (4.30-5.90) m/uL Hgb (13.0-17.5) gm/dL Hct (39.0-53.0) % MCV (80.0-100.0) fL MCH (25.0-35.0) pg MCHC (31.0-37.0) g/dL RDW (11.5-15.5) % Plt Count (150-450) k/uL MPV Neutrophils % % Lymphocytes % % Monocytes % % Eosinophils % % Basophils % % Neutrophils # (1.3-7.7) k/uL Lymphocytes # (1.0-4.8) k/uL Monocytes # (0-1.0) k/uL Eosinophils # (0-0.7) k/uL Basophils # (0-0.2) k/uL PT (10.0-12.5) sec INR (<1.2) APTT (22.0-30.0) sec Sodium (137-145) mmol/L Potassium (3.5-5.1) mmol/L Chloride (98-107) mmol/L Carbon Dioxide (22-30) mmol/L Anion Gap mmol/L BUN (9-20) mg/dL Creatinine (0.66-1.25) mg/dL Est GFR (CKD-EPI)AfAm (>60 ml/min/1.73 sqM) Est GFR (CKD-EPI)NonAf (>60 ml/min/1.73 sqM) Glucose (74-99) mg/dL Lactic Ac Sepsis Rflx Plasma Lactic Acid Juan Miguel 2.4 H* (0.7-2.0) mmol/L Calcium (8.4-10.2) mg/dL Magnesium (1.6-2.3) mg/dL Total Bilirubin (0.2-1.3) mg/dL AST (17-59) U/L ALT (4-49) U/L Alkaline Phosphatase (38-126) U/L NT-Pro-B Natriuret Pep pg/mL Total Protein (6.3-8.2) g/dL Albumin (3.5-5.0) g/dL Urine Color Colorless Urine Appearance Clear (Clear) Urine pH 6.5 (5.0-8.0) Ur Specific Putnam 1.013 (1.001-1.035) Urine Protein 1+ H (Negative) Urine Glucose (UA) 4+ H (Negative) Urine Ketones Negative (Negative) Urine Blood Negative (Negative) Urine Nitrite Negative (Negative) Urine Bilirubin Negative (Negative) Urine Urobilinogen <2.0 (<2.0) mg/dL Ur Leukocyte Esterase Negative (Negative) Urine RBC <1 (0-5) /hpf Urine WBC <1 (0-5) /hpf Hyaline Casts 11 H (0-2) /lpf Urine Mucus Rare H (None) /hpf Influenza Type A (PCR) Not Detected (Not Detectd) Influenza Type B (PCR) Not Detected (Not Detectd) RSV (PCR) Not Detected (Not Detectd) SARS-CoV-2 (PCR) Not Detected (Not Detectd) 09/09/24 Range/Units 16:30 WBC (3.8-10.6) k/uL RBC (4.30-5.90) m/uL Hgb (13.0-17.5) gm/dL Hct (39.0-53.0) % MCV (80.0-100.0) fL MCH (25.0-35.0) pg MCHC (31.0-37.0) g/dL RDW (11.5-15.5) % Plt Count (150-450) k/uL MPV Neutrophils % % Lymphocytes % % Monocytes % % Eosinophils % % Basophils % % Neutrophils # (1.3-7.7) k/uL Lymphocytes # (1.0-4.8) k/uL Monocytes # (0-1.0) k/uL Eosinophils # (0-0.7) k/uL Basophils # (0-0.2) k/uL PT (10.0-12.5) sec INR (<1.2) APTT (22.0-30.0) sec Sodium (137-145) mmol/L Potassium (3.5-5.1) mmol/L Chloride (98-107) mmol/L Carbon Dioxide (22-30) mmol/L Anion Gap mmol/L BUN (9-20) mg/dL Creatinine (0.66-1.25) mg/dL Est GFR (CKD-EPI)AfAm (>60 ml/min/1.73 sqM) Est GFR (CKD-EPI)NonAf (>60 ml/min/1.73 sqM) Glucose (74-99) mg/dL Lactic Ac Sepsis Rflx Y Plasma Lactic Acid Juan Miguel (0.7-2.0) mmol/L Calcium (8.4-10.2) mg/dL Magnesium (1.6-2.3) mg/dL Total Bilirubin (0.2-1.3) mg/dL AST (17-59) U/L ALT (4-49) U/L Alkaline Phosphatase (38-126) U/L NT-Pro-B Natriuret Pep pg/mL Total Protein (6.3-8.2) g/dL Albumin (3.5-5.0) g/dL Urine Color Urine Appearance (Clear) Urine pH (5.0-8.0) Ur Specific Putnam (1.001-1.035) Urine Protein (Negative) Urine Glucose (UA) (Negative) Urine Ketones (Negative) Urine Blood (Negative) Urine Nitrite (Negative) Urine Bilirubin (Negative) Urine Urobilinogen (<2.0) mg/dL Ur Leukocyte Esterase (Negative) Urine RBC (0-5) /hpf Urine WBC (0-5) /hpf Hyaline Casts (0-2) /lpf Urine Mucus (None) /hpf Influenza Type A (PCR) (Not Detectd) Influenza Type B (PCR) (Not Detectd) RSV (PCR) (Not Detectd) SARS-CoV-2 (PCR) (Not Detectd) - EKG Data -: EKG Interpreted by Me EKG Comments: 12-lead Electrocardiogram Interpretation Note EKG was reviewed and interpreted by myself. 12-lead ECG performed at 1523 is interpreted by me as revealing normal sinus rhythm at a rate of 77 beats per minute. Watkins is normal. MO interval is 171 ms, QRS duration is 113 ms, QTc is 427 ms.. There were no ST or T wave abnormalities to suggest myocardial ischemia or injury. R wave progression across the precordium was satisfactory. By my interpretation this EKG is non-diagnostic for acute ischemia. Compared with EKG from July 2021 with no significant change. Disposition Clinical Impression: Weakness, Debility, Lesion of giacomo Disposition: ADMITTED IP TO THIS HOSP Condition: Stable Time of Disposition: 18:00
[2024-09-09 16:27] LABS: ALT 15 U/L (4-49); AST 25 U/L (17-59); African American GFR (CKD) 89 (>60 ml/min/1.73 sqM); Albumin 4.2 g/dL (3.5-5.0); Alkaline Phosphatase 185 U/L (38-126); Anion Gap 12 mmol/L; Blood Urea Nitrogen 18 mg/dL (9-20); Calcium 9.6 mg/dL (8.4-10.2); Carbon Dioxide 24 mmol/L (22-30); Chloride 98 mmol/L (98-107); Glucose 294 mg/dL (74-99); Magnesium 1.7 mg/dL (1.6-2.3); Non-African American GFR(CKD) 77 (>60 ml/min/1.73 sqM); Potassium 4.4 mmol/L (3.5-5.1); Sodium 134 mmol/L (137-145); Total Bilirubin 0.3 mg/dL (0.2-1.3); Total Protein 7.3 g/dL (6.3-8.2)
[2024-09-09 16:33] LABS: Appearance,Urine Clear (Clear); Bilirubin,Urine Negative (Negative); Blood,Urine Negative (Negative); Color,Urine Colorless; Glucose,Urine (UA) 4+ (Negative); Hyaline Casts,Urine 11 /lpf (0-2); Ketones,Urine Negative (Negative); Leukocyte Esterase,Urine Negative (Negative); Mucus,Urine Rare /hpf; Nitrite,Urine Negative (Negative); PH, Urine 6.5 (5.0-8.0); Protein,Urine 1+ (Negative); RBC,Urine <1 /hpf (0-5); Specific Gravity,Urine 1.013 (1.001-1.035); Urobilinogen,Urine <2.0 mg/dL (<2.0); WBC,Urine <1 /hpf (0-5)
[2024-09-09 16:35] LABS: NT-Pro-B-Type Natriuretic Pept 557 pg/mL
--- NOTE | 2024-09-09 16:57 | CT ---
EXAMINATION TYPE: CT brain cspine wo con DATE OF EXAM: 09/09/2024 4:14 PM COMPARISON: 11/18/2020 CLINICAL INDICATION: Male, 89 years old with history of weakness; TECHNIQUE: Brain: Multiple axial CT images of the brain were obtained without IV contrast. Cspine: Axial CT images from the skull base to the inferior aspect of T2 we obtained without intraven ous contrast. Coronal and sagittal reformatted images were also reviewed. . CT DLP: 1310 mGycm, Automated exposure control for dose reduction was used. FINDINGS: Brain: Extra-axial spaces: No abnormal extra-axial fluid collections. Ventricular system: Within normal limits Cerebral parenchyma: New hypodense area in the brainstem on the left involving the giacomo. Remote injury to the left fregoso radiata. Cerebral atrophy. No acute intraparenchymal hemorrhage or m ass effect. The hooker-white junction is well differentiated. Scattered hypoattenuating areas are seen within the white matter. Cerebellum: Unremarkable. Mass effect: No evidence of midline shift. Intracranial vasculature: Atherosclerotic calcifications of the intracranial vessels. Soft tissues: Normal. Calvarium/osseous structures: No depressed skull fracture. Paranasal sinuses and mastoid air cells: Mild scattered mucosal thickening and or secretions. Visualized orbits: Bilateral aphakia Cervical spine: Fracture: None. Osseous structures: Multilevel degenerative disc disease changes with endplate spurring and disc oste ophyte complex's. Vertebral alignment: Within normal limits. Spinal canal/Neural Foramina: Disc osteophyte complexes at C6-C7 with at least mild spinal canal sten osis. No evidence for significant neural foraminal stenosis. Neck soft tissues: Prevertebral soft tissues are within normal limits. Other: The airway is patent. The lung apices are clear. IMPRESSION: 1. Left giacomo hypodense white matter changes new from 11/18/2020. Consider further evaluation with MRI , acute/subacute CVA should be considered in the differential correlate with symptoms. 2. Remote left fregoso radiata injury. New from 11/18/2020. 3. No evidence of cervical spine fracture. 4. Mild multilevel degenerative disc disease. [facility], , 09/09/2024 4:55 PM
[2024-09-09] MEDS: ASPIRIN 325 MG TAB PO STA (17:45)
--- NOTE | 2024-09-09 17:49 | XR ---
EXAMINATION TYPE: XR chest 2V DATE OF EXAM: 09/09/2024 5:25 PM COMPARISON: Chest radiographs from 07/28/2021 CLINICAL INDICATION: Male, 89 years old with history of Weakness; [facility] TECHNIQUE: XR chest 2V Frontal and lateral views of the chest. FINDINGS: Lungs/Pleura: There is no evidence of pleural effusion, focal consolidation, or pneumothorax. Pulmonary vascularity: Unremarkable. Heart/mediastinum: Cardiomediastinal silhouette is unremarkable. Musculoskeletal: No acute osseous pathology. Other findings: None IMPRESSION: No acute cardiopulmonary disease/process. [facility], , 09/09/2024 5:47 PM
--- NOTE | 2024-09-09 17:49 | XR ---
EXAMINATION TYPE: XR pelvis AP view DATE OF EXAM: 09/09/2024 5:25 PM COMPARISON: None CLINICAL INDICATION: Male, 89 years old with history of pain TECHNIQUE: XR pelvis AP view, examined in a single projection. FINDINGS: There is no evidence of fracture or dislocation. There is no soft tissue abnormality. No a bnormal calcifications are present. The spine appears intact. The hips appear intact. No significant degeneration. Surgical clips project over the pelvis. IMPRESSION: No acute osseous pathology. [facility], , 09/09/2024 5:46 PM
[2024-09-09] MEDS ORDERED: NALOXONE 0.4 MG/ML 1 ML VIAL IV PRN (18:07)
[2024-09-09] MEDS: TAMSULOSIN 0.4 MG CAP.ER.24H PO SCH (21:19)
[2024-09-09] MEDS: QUEtiapine 25 MG TAB PO SCH (21:19)
[2024-09-09] MEDS: metFORMIN 500 MG TAB PO SCH (21:20)
[2024-09-09] MEDS: hydrOXYzine HCL 25 MG TAB PO SCH (21:24)
[2024-09-10 07:20] LABS: Basophils % (A) 0 %; Eosinophils # (A) 0.7 k/uL (0-0.7); Eosinophils % (A) 11 %; HCT 38.9 % (39.0-53.0); HGB 12.6 gm/dL (13.0-17.5); Lymphocytes % (A) 16 %; MCH 29.9 pg (25.0-35.0); MCHC 32.4 g/dL (31.0-37.0); MCV 92.3 fL (80.0-100.0); Mean Platelet Volume 8.3; Monocytes # (A) 0.4 k/uL (0-1.0); Monocytes % (A) 7 %; Neutrophils % (A) 65 %; Platelet Count 191 k/uL (150-450); RBC 4.21 m/uL (4.30-5.90); RDW 12.8 % (11.5-15.5); WBC 6.2 k/uL (3.8-10.6)
[2024-09-10 07:45] LABS: ALT 13 U/L (4-49); AST 23 U/L (17-59); African American GFR (CKD) >90 (>60 ml/min/1.73 sqM); Albumin 3.7 g/dL (3.5-5.0); Alkaline Phosphatase 183 U/L (38-126); Anion Gap 6 mmol/L; Blood Urea Nitrogen 12 mg/dL (9-20); Carbon Dioxide 29 mmol/L (22-30); Chloride 100 mmol/L (98-107); Glucose 180 mg/dL (74-99); Non-African American GFR(CKD) 90 (>60 ml/min/1.73 sqM); Potassium 4.1 mmol/L (3.5-5.1); Sodium 135 mmol/L (137-145); Total Bilirubin 0.4 mg/dL (0.2-1.3); Total Protein 6.7 g/dL (6.3-8.2)
[2024-09-10] MEDS: hydroCHLOROthiazide 12.5 MG CAP PO SCH (08:39)
[2024-09-10] MEDS: amLODIPine 10 MG TAB PO SCH (08:39)
[2024-09-10] MEDS: LOSARTAN 50 MG TAB PO SCH (08:39)
--- NOTE | 2024-09-10 16:05 | P.CNNES ---
History of Present Illness Consult date: 09/10/24 Requesting physician: Mat Salcido Reason for Consult: giacomo hypodensity History of Present Illness: This is an 89-year-old gentleman who presented emergency department because of a fall. He is accompanied with his daughter who helps with some of the history. According to the daughter patient resides by himself and he has close to 24-hour care and it seems that [facility] came by and found the patient on the floor. Stated that the patient uses a wheeled walker and unsure if the patient tripped especially since she has poor vision and has cataract. Seems the patient just finished the bathroom and appears that he was walking out of the bathroom and again the daughter is unsure if he tripped or not. Patient does not have any underlying history of seizure. No focal weakness. Seems the patient has bila teral lower extremity edema and he is on water pill recently and the daughter stated it was severe lower extremity edema that is drastically improved. Patient does have underlying history of dementia. He is on aspirin 81 mg daily. No history of stroke in the past. Again no history of seizure. Some of the workup during this hospital visit consisted of: Initial serum glucose is 294, plasma lactic acid is 2.4. I reviewed the rest of the lab workup CT of the head and cervical spine is reported as left pontine hypodensity white matter changes new from 11/18/2020. Consider further evaluation with MRI, acute subacute CVA should be considered in the differential correlate with symptoms. Remote left fregoso radiata injury new from 11/18/2020. No evidence cervical spine fracture. Mild multilevel degenerative disc disease. I personally reviewed the CT and and feel the hypodensity over the left pontine seems old not new. Review of Systems As per HPI. Past Medical History Past Medical History: Chest Pain / Angina, Diabetes Mellitus, Hypertension Additional Past Medical History / Comment(s): taks oral DM rx History of Any Multi-Drug Resistant Organisms: None Reported Past Surgical History: Hernia Repair, Tonsillectomy Past Anesthesia/Blood Transfusion Reactions: No Reported Reaction Past Psychological History: No Psychological Hx Reported Smoking Status: Never smoker Past Alcohol Use History: None Reported Past Drug Use History: None Reported Medications and Allergies Home Medications Medication Instructions Recorded Confirmed Type amLODIPine [Norvasc] 10 mg PO DAILY 11/17/20 09/09/24 History Nitroglycerin Sl Tabs [Nitrostat] 0.4 mg SUBLINGUAL Q5M PRN #30 tab 11/19/20 09/09/24 Rx Losartan Potassium 50 mg PO DAILY 09/09/24 09/09/24 History QUEtiapine [SEROquel] 25 mg PO HS 09/09/24 09/09/24 History Tamsulosin [Flomax] 0.4 mg PO HS 09/09/24 09/09/24 History hydrOXYzine HCL [Atarax] 50 mg PO BID 09/09/24 09/09/24 History hydroCHLOROthiazide [Hydrodiuril] 12.5 mg PO DAILY 09/09/24 09/09/24 History metFORMIN HCL 1,000 mg PO BID 09/09/24 09/09/24 History Allergies Allergy/AdvReac Type Severity Reaction Status Date / Time No Known Allergies Allergy Verified 09/09/24 15:47 Physical Examination - Vital Signs Vital Signs: Vital Signs Temp Pulse Pulse Resp BP BP Pulse Ox 09/10/24 12:00 97.3 F L 70 18 106/70 96 09/10/24 08:53 67 18 153/64 96 09/10/24 04:16 72 16 162/84 96 09/09/24 21:05 75 16 180/84 09/09/24 18:39 68 18 179/91 94 L 09/09/24 16:21 78 18 186/81 95 Intake and Output 09/10/24 09/10/24 09/10/24 06:59 14:59 22:59 Other: Voiding Method Diaper # Voids 1 # Bowel Movements 0 General: Lying in bed and is not in acute distress. Neuro: Somewhat limited since patient was sleeping heavily. He was awake able to voice. He is oriented to self and he stated the year is 1985 the month is July and he is in [facility]. He is following simple commands. No aphasia. The pupils are round equal reactive to light. The pupils are round about 4 mm bilaterally. Visual wall as the patient has right upper quadrant deficit only on the right I. Extraocular movements intact no nystagmus. No facial weakness. No dysarthria Motor: Strength is lifted all extremities above gravity equally. Normal tone and bulk. Sensation: Normal to touch throughout. Reflex: 2+ throughout. Plantars: left toe is upgoing at baseline. Otherwise right is mute. Results - Laboratory Findings CBC and BMP: 09/10/24 05:50 09/10/24 05:50 Abnormal Lab Findings: Abnormal Labs 09/09/24 09/09/24 09/09/24 15:46 15:46 15:46 WBC 11.3 H RBC 4.27 L Hgb Hct Neutrophils # 8.9 H APTT 30.2 H Sodium 134 L Creatinine Glucose 294 H Plasma Lactic Acid Juan Miguel Alkaline Phosphatase 185 H Urine Protein Urine Glucose (UA) Hyaline Casts Urine Mucus 09/09/24 09/09/24 09/10/24 15:46 16:27 05:50 WBC RBC 4.21 L Hgb 12.6 L Hct 38.9 L Neutrophils # APTT Sodium Creatinine Glucose Plasma Lactic Acid Juan Miguel 2.4 H* Alkaline Phosphatase Urine Protein 1+ H Urine Glucose (UA) 4+ H Hyaline Casts 11 H Urine Mucus Rare H 09/10/24 05:50 WBC RBC Hgb Hct Neutrophils # APTT Sodium 135 L Creatinine 0.61 L Glucose 180 H Plasma Lactic Acid Juan Miguel Alkaline Phosphatase 183 H Urine Protein Urine Glucose (UA) Hyaline Casts Urine Mucus Assessment and Plan Assessment: This is an 89-year-old gentleman who found on the floor and the daughter is unsure if he fell because of his poor vision and tripped as a result. Patient does not have any history of stroke or seizure in the past. Patient does not have any focal deficit. CT of the head shows hypodensity over the left pontine as well as the left fregoso radiata but I felt that is old and not acute or subacute Hypodensity over the left on and coronary artery I feel this is chronic and not acute or subacute. Fall and likely mechanical. Hypertensive urgency Elevated blood sugar in the 200s Lower extremity edema and the patient was on "water pills" Underlying history of dementia Diabetes mellitus History of hypertension Plan: MRI of the brain is ordered. If patient does have acute or subacute stroke then we will get the rest of stroke workup I resume the patient home dose of aspirin 81 mg daily. I still started the patient on Lipitor 10 mg nightly for secondary stroke prophylaxis PT OT are consulted. Will defer the rest of the medical management to primary team and other specialist The plan discussed with the patient and his daughter was at bedside Thank for the consultation. Time with Patient: Greater than 30
[2024-09-10] MEDS ORDERED: NITROGLYCERIN SL TABS 0.4 MG TAB SUBLINGUAL PRN (18:01)
[2024-09-10] MEDS ORDERED: DEXTROSE 50% SYRINGE 50 ML IVP PRN ×2 (18:02)
--- NOTE | 2024-09-10 18:04 | P.HPIM ---
History of Present Illness H&P Date: 09/10/24 Jose Ruiz, is an 89-year-old male who presented to [facility] emergency room with a chief complaint of generalized weakness and fall at home, patient was found on the floor in his home, EMS were called and patient was brought into emergency room. He has a known history of hypertension, diabetes mellitus, coronary artery disease with angina, benign prostatic hypertrophy, history of poor vision with cataract, and history of dementia He was evaluated in the emergency room vital examination on presentation revealed a temperature of 97.3 pulse 77 respiration 18 blood pressure 188/86 pulse ox 96% on room air Laboratory data revealed a white blood count of 11.3 hemoglobin 13.2 platelet count 211 BUN 18 creatinine 0.88 glucose 294 lactic acid 2.4 Testing in the emergency room revealed CT scan of the brain was done in the emergency room and revealed left giacomo hypodense white matter changes new from 2020, acute/subacute CVA should be considered, remote left fregoso radiata i njury, cervical spine CT scan revealed no evidence of fracture, chest x-ray revealed no acute cardiopulmonary disease. Patient was admitted to medical floor for further evaluation and treatment Past Medical History Past Medical History: Hypertension Additional Past Medical History / Comment(s): taks oral DM rx History of Any Multi-Drug Resistant Organisms: None Reported Past Surgical History: Hernia Repair, Tonsillectomy Past Anesthesia/Blood Transfusion Reactions: No Reported Reaction Past Psychological History: No Psychological Hx Reported Smoking Status: Never smoker Past Alcohol Use History: None Reported Past Drug Use History: None Reported Medications and Allergies Home Medications Medication Instructions Recorded Confirmed Type amLODIPine [Norvasc] 10 mg PO DAILY 11/17/20 09/09/24 History Nitroglycerin Sl Tabs [Nitrostat] 0.4 mg SUBLINGUAL Q5M PRN #30 tab 11/19/20 09/09/24 Rx Losartan Potassium 50 mg PO DAILY 09/09/24 09/09/24 History QUEtiapine [SEROquel] 25 mg PO HS 09/09/24 09/09/24 History Tamsulosin [Flomax] 0.4 mg PO HS 09/09/24 09/09/24 History hydrOXYzine HCL [Atarax] 50 mg PO BID 09/09/24 09/09/24 History hydroCHLOROthiazide [Hydrodiuril] 12.5 mg PO DAILY 09/09/24 09/09/24 History metFORMIN HCL 1,000 mg PO BID 09/09/24 09/09/24 History Allergies Allergy/AdvReac Type Severity Reaction Status Date / Time No Known Allergies Allergy Verified 09/09/24 15:47 Physical Exam Vitals: Vital Signs Temp Pulse Resp BP Pulse Ox 09/10/24 08:53 67 18 153/64 96 09/10/24 04:16 72 16 162/84 96 09/09/24 21:05 75 16 180/84 09/09/24 18:39 68 18 179/91 94 L 09/09/24 16:21 78 18 186/81 95 09/09/24 15:15 97.3 F L 77 18 188/86 96 Intake and Output 09/09/24 09/10/24 09/10/24 22:59 06:59 14:59 Other: Weight 61.235 kg In general patient is alert and oriented x 3 in no distress HEENT head normocephalic and atraumatic Neck is supple no JVD no goiter no lymphadenopathy no carotid bruit Chest examination is clear to auscultation no crackles no wheezing Cardiac exam reveals regular heart sounds S1 and S2 no gallops no murmurs Abdomen is soft nontender no organomegaly with normal bowel sounds Extremity exam reveals no edema no cyanosis or clubbing Neurological examination reveals no gross focal deficits Results CBC & Chem 7: 09/10/24 05:50 09/10/24 05:50 Labs: Abnormal Lab Results - Last 24 Hours (Table) 09/09/24 09/09/24 09/09/24 Range/Units 15:46 15:46 15:46 WBC 11.3 H (3.8-10.6) k/uL RBC 4.27 L (4.30-5.90) m/uL Hgb (13.0-17.5) gm/dL Hct (39.0-53.0) % Neutrophils # 8.9 H (1.3-7.7) k/uL APTT 30.2 H (22.0-30.0) sec Sodium 134 L (137-145) mmol/L Creatinine (0.66-1.25) mg/dL Glucose 294 H (74-99) mg/dL Plasma Lactic Acid Juan Miguel (0.7-2.0) mmol/L Alkaline Phosphatase 185 H (38-126) U/L Urine Protein (Negative) Urine Glucose (UA) (Negative) Hyaline Casts (0-2) /lpf Urine Mucus (None) /hpf 09/09/24 09/09/24 09/10/24 Range/Units 15:46 16:27 05:50 WBC (3.8-10.6) k/uL RBC 4.21 L (4.30-5.90) m/uL Hgb 12.6 L (13.0-17.5) gm/dL Hct 38.9 L (39.0-53.0) % Neutrophils # (1.3-7.7) k/uL APTT (22.0-30.0) sec Sodium (137-145) mmol/L Creatinine (0.66-1.25) mg/dL Glucose (74-99) mg/dL Plasma Lactic Acid Juan Miguel 2.4 H* (0.7-2.0) mmol/L Alkaline Phosphatase (38-126) U/L Urine Protein 1+ H (Negative) Urine Glucose (UA) 4+ H (Negative) Hyaline Casts 11 H (0-2) /lpf Urine Mucus Rare H (None) /hpf 09/10/24 Range/Units 05:50 WBC (3.8-10.6) k/uL RBC (4.30-5.90) m/uL Hgb (13.0-17.5) gm/dL Hct (39.0-53.0) % Neutrophils # (1.3-7.7) k/uL APTT (22.0-30.0) sec Sodium 135 L (137-145) mmol/L Creatinine 0.61 L (0.66-1.25) mg/dL Glucose 180 H (74-99) mg/dL Plasma Lactic Acid Juan Miguel (0.7-2.0) mmol/L Alkaline Phosphatase 183 H (38-126) U/L Urine Protein (Negative) Urine Glucose (UA) (Negative) Hyaline Casts (0-2) /lpf Urine Mucus (None) /hpf Assessment and Plan Plan: Generalized weakness with fall at home Abnormal CT scan of the brain revealing hypodense lesion over the left giacomo, neurology consultation was requested MRI of the brain ordered. Underlying history of hypertension Underlying history of hyperlipidemia Underlying history of diabetes mellitus Underlying history of dementia At this time patient is admitted to medical floor Home medications reviewed and reordered Will check echocardiogram and carotid Doppler Neurology consultation requested, MRI of the brain ordered Physical therapy and Occupational Therapy requested For DVT prophylaxis subcu Lovenox Will follow closely
[2024-09-10 20:45] LABS: Glucose,Whole Blood 258 mg/dL (70-110)
[2024-09-10] MEDS: ATORVASTATIN 10 MG TAB PO SCH (20:46)
[2024-09-11 06:21] LABS: Glucose,Whole Blood 183 mg/dL (70-110)
[2024-09-11] MEDS: INSULIN ASPART (NovoLOG) 100 UNIT/ML VIAL SQ SCH ×2 (06:31→21:39)
[2024-09-11] MEDS: ASPIRIN 81 MG PO SCH (08:33)
[2024-09-11] MEDS: ENOXAPARIN 40 MG/0.4 ML SYRINGE SQ SCH (08:33)
--- NOTE | 2024-09-11 10:12 | P.PN ---
Subjective Progress Note Date: 09/11/24 Jose Ruiz, is an 89-year-old male who presented to [facility] emergency room with a chief complaint of generalized weakness and fall at home, patient was found on the floor in his home, EMS were called and patient was brought into emergency room. He has a known history of hypertension, diabetes mellitus, coronary artery disease with angina, benign prostatic hypertrophy, history of poor vision with cataract, and history of dementia He was evaluated in the emergency room vital examination on presentation revealed a temperature of 97.3 pulse 77 respiration 18 blood pressure 188/86 pulse ox 96% on room air Laboratory data revealed a white blood count of 11.3 hemoglobin 13.2 platelet count 211 BUN 18 creatinine 0.88 glucose 294 lactic acid 2.4 Testing in the emergency room revealed CT scan of the brain was done in the emergency room and revealed left giacomo hypodense white matter changes new from 2020, acute/subacute CVA should be considered, remote left fregoso radiata injury , cervical spine CT scan revealed no evidence of fracture, chest x-ray revealed no acute cardiopulmonary disease. Patient was admitted to medical floor for further evaluation and treatment On 09/11/2024 patient is alert and oriented x 3 currently sitting up in chair. MRI was completed awaiting results daughter at bedside requesting stool softener we will add Colace. Neurology services are following will consult PT OT services. Will also consult social work services for discharge planning. C urrent vital signs temp 98.1, heart rate 74, respiratory rate 16, blood pressure 169/83 with a pulse ox of 95% on room air Objective - Vital Signs Vital signs: Vital Signs Temp 98.1 F 09/11/24 08:20 Pulse 74 09/11/24 08:20 Resp 16 09/11/24 08:20 BP 169/83 09/11/24 08:20 Pulse Ox 95 09/11/24 08:20 FiO2 Intake & Output 09/10/24 09/11/24 09/11/24 18:59 06:59 18:59 Intake Total 10 20 10 Output Total 500 Balance 10 -480 10 Weight 61.235 kg 78 kg Intake: IV 10 20 10 Invasive Line 2 10 20 10 Output: Urine 500 Other: Voiding Method Diaper Diaper Diaper External Catheter External Catheter External Catheter # Voids 1 # Bowel Movements 0 - Exam In general patient is alert and oriented x 3 in no distress HEENT head normocephalic and atraumatic Neck is supple no JVD no goiter no lymphadenopathy no carotid bruit Chest examination is clear to auscultation no crackles no wheezing Cardiac exam reveals regular heart sounds S1 and S2 no gallops no murmurs Abdomen is soft nontender no organomegaly with normal bowel sounds Extremity exam reveals no edema no cyanosis or clubbing Neurological examination reveals no gross focal deficits - Labs CBC & Chem 7: 09/10/24 05:50 09/10/24 05:50 Labs: Abnormal Lab Results - Last 24 Hours (Table) 09/10/24 09/10/24 09/11/24 Range/Units 05:50 20:44 06:20 POC Glucose (mg/dL) 258 H 183 H (70-110) mg/dL Hemoglobin A1c 8.3 H (<=6.0) % Assessment and Plan Plan: Generalized weakness with fall at home Abnormal CT scan of the brain revealing hypodense lesion over the left giacomo, neurology consultation was requested MRI of the brain ordered. Underlying history of hypertension Underlying history of hyperlipidemia Underlying history of diabetes mellitus Underlying history of dementia At this time patient is admitted to medical floor Home medications reviewed and reordered Will check echocardiogram and carotid Doppler Neurology consultation requested, MRI of the brain ordered Physical therapy and Occupational Therapy [facility] Will follow closely
[2024-09-11 11:37] LABS: Glucose,Whole Blood 260 mg/dL (70-110)
[2024-09-11 16:21] LABS: Glucose,Whole Blood 241 mg/dL (70-110)
[2024-09-11 19:56] LABS: Glucose,Whole Blood 360 mg/dL (70-110)
--- NOTE | 2024-09-11 20:01 | P.PN ---
Subjective Progress Note Date: 09/11/24 I am following-up with patient and he is accompanied with his friend and he feels he is doing well and no neurological issues. Objective - Vital Signs Vital signs: Vital Signs Temp 98.1 F 09/11/24 15:14 Pulse 68 09/11/24 15:14 Resp 16 09/11/24 15:14 BP 125/68 09/11/24 15:14 Pulse Ox 96 09/11/24 15:14 FiO2 Intake & Output 09/11/24 09/11/24 09/12/24 06:59 18:59 06:59 Intake Total 20 538 Output Total 500 500 Balance -480 38 Weight 78 kg Intake: IV 20 20 Invasive Line 2 20 20 Oral 518 Output: Urine 500 500 Other: Voiding Method Diaper Diaper External Catheter External Catheter - Exam General: Sitting in a recliner chair and is not in acute distress. Neuro: Somewhat limited since patient was sleeping heavily. He was awake able to voice. He is oriented to self and he stated the year is 1985 the month is July and he is in [facility]. He is following simple commands. No aphasia. The pupils are round equal reactive to light. The pupils are round about 4 mm bilaterally. Visual wall as the patient has right upper quadrant deficit only on the right I. Extraocular movements intact no nystagmus. No facial weakness. No dysarthria Motor: Strength is lifted all extremities above gravity equally. Normal tone and bulk. Sensation: Normal to touch throughout. Reflex: 2+ throughout. Plantars: left toe is upgoing at baseline. Otherwise right is mute. Some of the workup during this hospital visit consisted of: Initial serum glucose is 294, plasma lactic acid is 2.4. I reviewed the rest of the lab workup CT of the head and cervical spine is reported as left pontine hypodensity white matter changes new from 11/18/2020. Consider further evaluation with MRI, acute subacute CVA should be considered in the differential correlate with symptoms. Remote left fregoso radiata injury new from 11/18/2020. No evidence cervical spine fracture. Mild multilevel degenerative disc disease. I personally reviewed the CT and and feel the hypodensity over the left pontine seems old not new. MRI Brain is completed and pending report but I reviewed it and do not feel there is acute or subcute ischemic stroke. - Labs CBC & Chem 7: 09/10/24 05:50 09/10/24 05:50 Labs: Abnormal Lab Results - Last 24 Hours (Table) 09/10/24 09/10/24 09/11/24 Range/Units 05:50 20:44 06:20 POC Glucose (mg/dL) 258 H 183 H (70-110) mg/dL Hemoglobin A1c 8.3 H (<=6.0) % 09/11/24 09/11/24 09/11/24 Range/Units 11:35 16:19 19:47 POC Glucose (mg/dL) 260 H 241 H 360 H (70-110) mg/dL Hemoglobin A1c (<=6.0) % Assessment and Plan Assessment: This is an 89-year-old gentleman who found on the floor and the daughter is unsure if he fell because of his poor vision and tripped as a result. Patient does not have any history of stroke or seizure in the past. Patient does not have any focal deficit. CT of the head shows hypodensity over the left pontine as well as the left fregoso radiata but I felt that is old and not acute or subacute Hypodensity over the left reported on CT head I feel this is chronic and not acute or subacute. MRI Brain is completed and I feel is negative for acute or subacute ischemic stroke but pending official report. Fall and likely mechanical. Hypertensive urgency Elevated blood sugar in the 200s Remote left fregoso radiata on CT head Lower extremity edema and the patient was on "water pills" Underlying history of dementia Diabetes mellitus History of hypertension Plan: Pending offical report of MRI. Continue home dose of aspirin 81 mg daily. Continue Lipitor 10 mg nightly for secondary stroke prophylaxis PT OT are consulted. Will defer the rest of the medical management to primary team and other specialist The plan discussed with the patient and primary team. Will follow-up sporadically. Time with Patient: Less than 30
[2024-09-12 06:09] LABS: Glucose,Whole Blood 129 mg/dL (70-110)
[2024-09-12 07:51] LABS: Basophils % (A) 0 %; Eosinophils # (A) 0.7 k/uL (0-0.7); Eosinophils % (A) 9 %; HCT 36.9 % (39.0-53.0); HGB 12.3 gm/dL (13.0-17.5); Lymphocytes % (A) 13 %; MCH 30.6 pg (25.0-35.0); MCHC 33.4 g/dL (31.0-37.0); MCV 91.5 fL (80.0-100.0); Mean Platelet Volume 7.7; Monocytes # (A) 0.5 k/uL (0-1.0); Monocytes % (A) 7 %; Neutrophils # (A) 5.3 k/uL (1.3-7.7); Neutrophils % (A) 69 %; Platelet Count 177 k/uL (150-450); RBC 4.03 m/uL (4.30-5.90); RDW 12.6 % (11.5-15.5); WBC 7.8 k/uL (3.8-10.6)
[2024-09-12 07:58] LABS: ALT 12 U/L (4-49); AST 21 U/L (17-59); African American GFR (CKD) >90 (>60 ml/min/1.73 sqM); Albumin 3.5 g/dL (3.5-5.0); Alkaline Phosphatase 146 U/L (38-126); Anion Gap 3 mmol/L; Blood Urea Nitrogen 20 mg/dL (9-20); Carbon Dioxide 31 mmol/L (22-30); Chloride 99 mmol/L (98-107); Glucose 132 mg/dL (74-99); Non-African American GFR(CKD) 81 (>60 ml/min/1.73 sqM); Potassium 4.1 mmol/L (3.5-5.1); Sodium 133 mmol/L (137-145); Total Bilirubin 0.4 mg/dL (0.2-1.3); Total Protein 6.5 g/dL (6.3-8.2)
[2024-09-12] MEDS: DOCUSATE 100 MG CAP PO SCH ×2 (09:47→15:39)
--- NOTE | 2024-09-12 10:51 | P.PN ---
Subjective Progress Note Date: 09/12/24 Jose Ruiz, is an 89-year-old male who presented to [facility] emergency room with a chief complaint of generalized weakness and fall at home, patient was found on the floor in his home, EMS were called and patient was brought into emergency room. He has a known history of hypertension, diabetes mellitus, coronary artery disease with angina, benign prostatic hypertrophy, history of poor vision with cataract, and history of dementia He was evaluated in the emergency room vital examination on presentation revealed a temperature of 97.3 pulse 77 respiration 18 blood pressure 188/86 pulse ox 96% on room air Laboratory data revealed a white blood count of 11.3 hemoglobin 13.2 platelet count 211 BUN 18 creatinine 0.88 glucose 294 lactic acid 2.4 Testing in the emergency room revealed CT scan of the brain was done in the emergency room and revealed left giacomo hypodense white matter changes new from 2020, acute/subacute CVA should be considered, remote left fregoso radiata injury , cervical spine CT scan revealed no evidence of fracture, chest x-ray revealed no acute cardiopulmonary disease. Patient was admitted to medical floor for further evaluation and treatment On 09/11/2024 patient is alert and oriented x 3 currently sitting up in chair. MRI was completed awaiting results daughter at bedside requesting stool softener we will add Colace. Neurology services are following will consult PT OT services. Will also consult social work services for discharge planning. Glenna joerenjn vital signs temp 98.1, heart rate 74, respiratory rate 16, blood pressure 169/83 with a pulse ox of 95% on room air On 09/12/2024 patient was seen and examined on the medical floor he is alert and oriented in no apparent distress he is complaining of constipation otherwise he denies any complaints there is no fever or chills no headache or dizziness no chest pain no shortness of breath no cough no nausea or vomiting no abdominal pain no diarrhea and no urinary symptoms. At this time we are still awaiting for MRI results, continue with physical therapy and Occupational Therapy, will follow in a.m.. Objective - Vital Signs Vital signs: Vital Signs Temp 98.2 F 09/12/24 04:29 Pulse 78 09/12/24 09:45 Resp 15 09/12/24 09:45 BP 162/71 09/12/24 09:45 Pulse Ox 93 L 09/12/24 09:45 FiO2 Intake & Output 09/11/24 09/12/24 09/12/24 18:59 06:59 18:59 Intake Total 538 20 Output Total 500 400 400 Balance 38 -380 -400 Weight 78 kg Intake: IV 20 20 Invasive Line 2 20 20 Oral 518 Output: Urine 500 400 400 Other: Voiding Method Diaper Diaper External Catheter External Catheter - Exam In general patient is alert and oriented x 3 in no distress HEENT head normocephalic and atraumatic Neck is supple no JVD no goiter no lymphadenopathy no carotid bruit Chest examination is clear to auscultation no crackles no wheezing Cardiac exam reveals regular heart sounds S1 and S2 no gallops no murmurs Abdomen is soft nontender no organomegaly with normal bowel sounds Extremity exam reveals no edema no cyanosis or clubbing Neurological examination reveals no gross focal deficits - Labs CBC & Chem 7: 09/12/24 07:27 09/12/24 07:27 Labs: Abnormal Lab Results - Last 24 Hours (Table) 09/11/24 09/11/24 09/11/24 Range/Units 11:35 16:19 19:47 RBC (4.30-5.90) m/uL Hgb (13.0-17.5) gm/dL Hct (39.0-53.0) % Sodium (137-145) mmol/L Carbon Dioxide (22-30) mmol/L Glucose (74-99) mg/dL POC Glucose (mg/dL) 260 H 241 H 360 H (70-110) mg/dL Alkaline Phosphatase (38-126) U/L 09/12/24 09/12/24 09/12/24 Range/Units 05:51 07:27 07:27 RBC 4.03 L (4.30-5.90) m/uL Hgb 12.3 L (13.0-17.5) gm/dL Hct 36.9 L (39.0-53.0) % Sodium 133 L (137-145) mmol/L Carbon Dioxide 31 H (22-30) mmol/L Glucose 132 H (74-99) mg/dL POC Glucose (mg/dL) 129 H (70-110) mg/dL Alkaline Phosphatase 146 H (38-126) U/L Assessment and Plan Plan: Generalized weakness with fall at home Abnormal CT scan of the brain revealing hypodense lesion over the left giacomo, neurology consultation was requested MRI of the brain ordered. Underlying history of hypertension Underlying history of hyperlipidemia Underlying history of diabetes mellitus Underlying history of dementia At this time patient is admitted to medical floor Home medications reviewed and reordered Will check echocardiogram and carotid Doppler Neurology consultation requested, MRI of the brain ordered Physical therapy and Occupational Therapy requested For DVT prophylaxis subcu Lovenox Will follow closely
[2024-09-12 11:22] LABS: Glucose,Whole Blood 274 mg/dL (70-110)
[2024-09-12] MEDS: LACTULOSE 20 GM/30 ML CUP PO ONE (15:41)
[2024-09-12 16:22] LABS: Glucose,Whole Blood 222 mg/dL (70-110)
[2024-09-12 20:06] LABS: Glucose,Whole Blood 209 mg/dL (70-110)
[2024-09-13 06:20] LABS: Glucose,Whole Blood 227 mg/dL (70-110)
--- NOTE | 2024-09-13 09:57 | P.PN ---
Subjective Progress Note Date: 09/13/24 Jose Ruiz, is an 89-year-old male who presented to [facility] emergency room with a chief complaint of generalized weakness and fall at home, patient was found on the floor in his home, EMS were called and patient was brought into emergency room. He has a known history of hypertension, diabetes mellitus, coronary artery disease with angina, benign prostatic hypertrophy, history of poor vision with cataract, and history of dementia He was evaluated in the emergency room vital examination on presentation revealed a temperature of 97.3 pulse 77 respiration 18 blood pressure 188/86 pulse ox 96% on room air Laboratory data revealed a white blood count of 11.3 hemoglobin 13.2 platelet count 211 BUN 18 creatinine 0.88 glucose 294 lactic acid 2.4 Testing in the emergency room revealed CT scan of the brain was done in the emergency room and revealed left giacomo hypodense white matter changes new from 2020, acute/subacute CVA should be considered, remote left fregoso radiata injury , cervical spine CT scan revealed no evidence of fracture, chest x-ray revealed no acute cardiopulmonary disease. Patient was admitted to medical floor for further evaluation and treatment On 09/11/2024 patient is alert and oriented x 3 currently sitting up in chair. MRI was completed awaiting results daughter at bedside requesting stool softener we will add Colace. Neurology services are following will consult PT OT services. Will also consult social work services for discharge planning. C urrent vital signs temp 98.1, heart rate 74, respiratory rate 16, blood pressure 169/83 with a pulse ox of 95% on room air On 09/12/2024 patient was seen and examined on the medical floor he is alert and oriented in no apparent distress he is complaining of constipation otherwise he denies any complaints there is no fever or chills no headache or dizziness no chest pain no shortness of breath no cough no nausea or vomiting no abdominal pain no diarrhea and no urinary symptoms. At this time we are still awaiting for MRI results, continue with physical therapy and Occupational Therapy, will follow in a.m.. on 09/13/2024 patient is alert and oriented resting comfortably in bed. Still awaiting official report of MRI. Discharge planning to [facility]. at this time patient denies chest pain or shortness of breath. Patient denies nausea vomiting or diarrhea. Patient denies any urinary burning or frequency Objective - Vital Signs Vital signs: Vital Signs Temp 97.5 F L 09/13/24 08:49 Pulse 89 09/13/24 08:49 Resp 16 09/13/24 08:49 BP 132/67 09/13/24 08:49 Pulse Ox 94 L 09/13/24 08:49 FiO2 Intake & Output 09/12/24 09/13/24 09/13/24 18:59 06:59 18:59 Intake Total 256 20 Output Total 800 200 Balance -544 20 -200 Weight 80.5 kg Intake: IV 20 20 Invasive Line 2 20 20 Oral 236 Output: Urine 800 200 Other: Voiding Method Diaper External Catheter # Voids 3 # Bowel Movements 2 - Exam In general patient is alert and oriented x 3 in no distress HEENT head normocephalic and atraumatic Neck is supple no JVD no goiter no lymphadenopathy no carotid bruit Chest examination is clear to auscultation no crackles no wheezing Cardiac exam reveals regular heart sounds S1 and S2 no gallops no murmurs Abdomen is soft nontender no organomegaly with normal bowel sounds Extremity exam reveals no edema no cyanosis or clubbing Neurological examination reveals no gross focal deficits - Labs CBC & Chem 7: 09/12/24 07:27 09/12/24 07:27 Labs: Abnormal Lab Results - Last 24 Hours (Table) 09/12/24 09/12/24 09/12/24 Range/Units 11:19 16:21 20:02 POC Glucose (mg/dL) 274 H 222 H 209 H (70-110) mg/dL 09/13/24 Range/Units 06:09 POC Glucose (mg/dL) 227 H (70-110) mg/dL Assessment and Plan Plan: Generalized weakness with fall at home Abnormal CT scan of the brain revealing hypodense lesion over the left giacomo, neurology consultation was requested MRI of the brain ordered. Underlying history of hypertension Underlying history of hyperlipidemia Underlying history of diabetes mellitus Underlying history of dementia At this time patient is admitted to medical floor Home medications reviewed and reordered Will check echocardiogram and carotid Doppler Neurology consultation requested, MRI of the brain ordered Physical therapy and Occupational Therapy [facility] Will follow closely
[2024-09-13 11:13] LABS: Basophils % (A) 0 %; Eosinophils % (A) 0 %; Lymphocytes # (A) 0.6 k/uL (1.0-4.8); Lymphocytes % (A) 8 %; MCH 30.5 pg (25.0-35.0); MCHC 33.4 g/dL (31.0-37.0); MCV 91.2 fL (80.0-100.0); Mean Platelet Volume 8.2; Monocytes # (A) 0.6 k/uL (0-1.0); Monocytes % (A) 7 %; Neutrophils # (A) 6.5 k/uL (1.3-7.7); Neutrophils % (A) 82 %; Platelet Count 177 k/uL (150-450); RBC 4.27 m/uL (4.30-5.90); RDW 12.6 % (11.5-15.5); WBC 7.9 k/uL (3.8-10.6)
[2024-09-13 11:24] LABS: ALT 14 U/L (4-49); AST 23 U/L (17-59); African American GFR (CKD) 78 (>60 ml/min/1.73 sqM); Albumin 3.9 g/dL (3.5-5.0); Alkaline Phosphatase 139 U/L (38-126); Anion Gap 8 mmol/L; Blood Urea Nitrogen 26 mg/dL (9-20); Calcium 9.2 mg/dL (8.4-10.2); Carbon Dioxide 26 mmol/L (22-30); Chloride 96 mmol/L (98-107); Glucose 245 mg/dL (74-99); Non-African American GFR(CKD) 68 (>60 ml/min/1.73 sqM); Potassium 4.5 mmol/L (3.5-5.1); Sodium 130 mmol/L (137-145); Total Bilirubin 0.4 mg/dL (0.2-1.3); Total Protein 7.1 g/dL (6.3-8.2)
[2024-09-13 11:34] LABS: Glucose,Whole Blood 227 mg/dL (70-110)
[2024-09-13 16:48] LABS: Glucose,Whole Blood 236 mg/dL (70-110)
--- NOTE | 2024-09-13 18:27 | CT ---
EXAMINATION TYPE: CT abdomen pelvis wo con DATE OF EXAM: 09/13/2024 5:51 PM COMPARISON: None. CLINICAL INDICATION: Male, 89 years old with history of abdominal pain, distention; abdominal pain, d istention TECHNIQUE: Axial CT abdomen pelvis wo con;Sagittal and coronal reformats were created on a separate workstation. Contrast used: mL of , (none if empty) Oral contrast used: without Oral Contrast (none if empty) CT DLP: 496.3 mGycm, Automated exposure control for dose reduction was used. FINDINGS: LOWER CHEST: Streaky atelectasis in the lung bases. Heart is mildly enlarged for size material and an nular calcifications versus postsurgical changes. ABDOMEN LIVER: Unremarkable GALLBLADDER AND BILE DUCTS: Unremarkable. PANCREAS: Unremarkable. SPLEEN: Scattered calcified granulomas. ADRENAL GLANDS: Unremarkable. KIDNEYS AND URETERS: No evidence of hydronephrosis or renal calculus. The ureters are unremarkable. Simple appearing left renal cyst. PELVIS BLADDER: No evidence for wall thickening or mass given limitations of exam. REPRODUCTIVE: Unremarkable. ABDOMEN & PELVIS STOMACH AND BOWEL: Redundant colon with large amount stool with gaseous distention of the bowel. No e vidence twisting or bowel obstruction. PERITONEUM/RETROPERITONEUM: No evidence of pneumoperitoneum or free fluid. VASCULATURE: No evidence of aortic aneurysm. MUSCULOSKELETAL: Age-indeterminate deformity of L3 superior endplate with 25% height loss. No evidenc e for significant retropulsion. LYMPH NODES: No gross evidence for lymphadenopathy. SOFT TISSUE/ABDOMINAL WALL: Unremarkable IMPRESSION: 1. Large amount stool throughout a redundant colon with with gaseous distention of bowel loops. Rachel elate for ileus. No evidence for volvulus or obstruction. 2. Left simple appearing renal cysts. 3. Mild cardiomegaly. 4. Age-indeterminate compression deformity of the superior endplate of L3 correlate with back pain. [facility], , 09/13/2024 6:25 PM
[2024-09-13 20:19] LABS: Glucose,Whole Blood 219 mg/dL (70-110)
[2024-09-14 06:09] LABS: Glucose,Whole Blood 194 mg/dL (70-110)
[2024-09-14 07:14] LABS: ALT 14 U/L (4-49); AST 25 U/L (17-59); African American GFR (CKD) 83 (>60 ml/min/1.73 sqM); Albumin 3.5 g/dL (3.5-5.0); Alkaline Phosphatase 122 U/L (38-126); Anion Gap 9 mmol/L; Blood Urea Nitrogen 33 mg/dL (9-20); Calcium 8.9 mg/dL (8.4-10.2); Carbon Dioxide 25 mmol/L (22-30); Chloride 94 mmol/L (98-107); Glucose 198 mg/dL (74-99); Non-African American GFR(CKD) 72 (>60 ml/min/1.73 sqM); Sodium 128 mmol/L (137-145); Total Bilirubin 0.4 mg/dL (0.2-1.3); Total Protein 6.5 g/dL (6.3-8.2)
[2024-09-14 07:27] LABS: Basophils % (A) 0 %; Eosinophils # (A) 0.2 k/uL (0-0.7); Eosinophils % (A) 4 %; HCT 35.9 % (39.0-53.0); HGB 12.5 gm/dL (13.0-17.5); Lymphocytes # (A) 0.8 k/uL (1.0-4.8); Lymphocytes % (A) 17 %; MCH 31.2 pg (25.0-35.0); MCHC 34.8 g/dL (31.0-37.0); MCV 89.7 fL (80.0-100.0); Mean Platelet Volume 8.2; Monocytes # (A) 0.7 k/uL (0-1.0); Monocytes % (A) 14 %; Neutrophils # (A) 2.9 k/uL (1.3-7.7); Neutrophils % (A) 61 %; Platelet Count 161 k/uL (150-450); RDW 12.9 % (11.5-15.5); WBC 4.7 k/uL (3.8-10.6)
--- NOTE | 2024-09-14 08:34 | MR ---
EXAMINATION TYPE: MR brain wo con DATE OF EXAM: 09/10/2024 2:18 PM COMPARISON: 09/09/2024 CLINICAL INDICATION: Male, 89 years old with history of parvin lesion, PARVIN LESION. TECHNIQUE: Multiplanar, multiecho imaging on a 3.0 Ching magnet is performed through the brain. Stud y is performed within 24 hours of arrival to the hospital.Multiplanar, multiecho imaging on a 3.0 Fadia la magnet is performed through the knee. IV Contrast: mL (None, if empty) FINDINGS: The craniovertebral junction is normal. The pituitary is normal. There is thinning of the corpus ca llosum. Diffusion-weighted imaging is performed. No abnormal hyperintensity is present to suggest an acute i ntracranial infarct or acute ischemic change. There is confluent periventricular white matter hyperintensity, likely on the basis of chronic white matter ischemic changes. 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 Chronic White matter change are within the brainstem. Ventricles and sulci are prominent for the patient age. IMPRESSION: 1. Atrophy with chronic appearing periventricular white matter ischemic type changes. White matter ch anges are within the brainstem. 2. 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 [facility], , 09/14/2024 8:32 AM
--- NOTE | 2024-09-14 09:32 | P.GSCN ---
History of Present Illness Consult date: 09/14/24 Reason for Consult: Ileus History of present illness: 89-year-old male admitted the hospital after being found by family and caregivers on the floor at home. Patient confused as to what occurred. Unsure if he fell or not. No obvious trauma. Some older scalp abrasions noted. Patient yesterday was noted to be somewhat distended. CAT scan was ordered and shows significant constipation. No obvious colonic obstruction or transition point. Patient appears comfortable. Denies pain. Admits that he is somewhat bloated. No nausea or vomiting per patient. Review of Systems The patient denies any acute changes in vision or hearing, no dysphagia or odynophagia, no chest pain or shortness of breath, no dysuria or hematuria, no headache, no runny nose, no rectal bleeding or melena, no unexplained weight loss Past Medical History Past Medical History: Hypertension Additional Past Medical History / Comment(s): taks oral DM rx History of Any Multi-Drug Resistant Organisms: None Reported Past Surgical History: Hernia Repair, Tonsillectomy Past Anesthesia/Blood Transfusion Reactions: No Reported Reaction Smoking Status: Never smoker Medications and Allergies Home Medications Medication Instructions Recorded Confirmed Type amLODIPine [Norvasc] 10 mg PO DAILY 11/17/20 09/09/24 History Nitroglycerin Sl Tabs [Nitrostat] 0.4 mg SUBLINGUAL Q5M PRN #30 tab 11/19/20 09/09/24 Rx Losartan Potassium 50 mg PO DAILY 09/09/24 09/09/24 History QUEtiapine [SEROquel] 25 mg PO HS 09/09/24 09/09/24 History Tamsulosin [Flomax] 0.4 mg PO HS 09/09/24 09/09/24 History hydrOXYzine HCL [Atarax] 50 mg PO BID 09/09/24 09/09/24 History hydroCHLOROthiazide [Hydrodiuril] 12.5 mg PO DAILY 09/09/24 09/09/24 History metFORMIN HCL 1,000 mg PO BID 09/09/24 09/09/24 History Allergies Allergy/AdvReac Type Severity Reaction Status Date / Time No Known Allergies Allergy Verified 09/09/24 15:47 Surgical - Exam Vital Signs Temp Pulse Resp BP Pulse Ox 97.3 F L 77 18 188/86 96 09/09/24 15:15 09/09/24 15:15 09/09/24 15:15 09/09/24 15:15 09/09/24 15:15 Physical exam: General: Well-developed, well-nourished HEENT: Normocephalic, sclerae nonicteric Abdomen: Nontender, mild distention Extremities: Mild bilateral lower extremity edema Neuro: Alert Results - Labs 09/14/24 06:36 09/14/24 06:36 Abnormal Lab Results - Last 24 Hours (Table) 09/13/24 09/13/24 09/13/24 Range/Units 10:52 10:52 11:32 RBC 4.27 L (4.30-5.90) m/uL Hgb (13.0-17.5) gm/dL Hct (39.0-53.0) % Lymphocytes # 0.6 L (1.0-4.8) k/uL Sodium 130 L (137-145) mmol/L Chloride 96 L (98-107) mmol/L BUN 26 H (9-20) mg/dL Glucose 245 H (74-99) mg/dL POC Glucose (mg/dL) 227 H (70-110) mg/dL Alkaline Phosphatase 139 H (38-126) U/L 09/13/24 09/13/24 09/14/24 Range/Units 16:36 20:18 06:08 RBC (4.30-5.90) m/uL Hgb (13.0-17.5) gm/dL Hct (39.0-53.0) % Lymphocytes # (1.0-4.8) k/uL Sodium (137-145) mmol/L Chloride (98-107) mmol/L BUN (9-20) mg/dL Glucose (74-99) mg/dL POC Glucose (mg/dL) 236 H 219 H 194 H (70-110) mg/dL Alkaline Phosphatase (38-126) U/L 09/14/24 09/14/24 Range/Units 06:36 06:36 RBC 4.00 L (4.30-5.90) m/uL Hgb 12.5 L (13.0-17.5) gm/dL Hct 35.9 L (39.0-53.0) % Lymphocytes # 0.8 L (1.0-4.8) k/uL Sodium 128 L (137-145) mmol/L Chloride 94 L (98-107) mmol/L BUN 33 H (9-20) mg/dL Glucose 198 H (74-99) mg/dL POC Glucose (mg/dL) (70-110) mg/dL Alkaline Phosphatase (38-126) U/L Diabetes panel 09/13/24 09/14/24 Range/Units 10:52 06:36 Sodium 130 L 128 L (137-145) mmol/L Potassium 4.5 4.0 (3.5-5.1) mmol/L Chloride 96 L 94 L (98-107) mmol/L Carbon Dioxide 26 25 (22-30) mmol/L BUN 26 H 33 H (9-20) mg/dL Creatinine 0.99 0.95 (0.66-1.25) mg/dL Glucose 245 H 198 H (74-99) mg/dL Calcium 9.2 8.9 (8.4-10.2) mg/dL AST 23 25 (17-59) U/L ALT 14 14 (4-49) U/L Alkaline Phosphatase 139 H 122 (38-126) U/L Total Protein 7.1 6.5 (6.3-8.2) g/dL Albumin 3.9 3.5 (3.5-5.0) g/dL Calcium panel 09/13/24 09/14/24 Range/Units 10:52 06:36 Calcium 9.2 8.9 (8.4-10.2) mg/dL Albumin 3.9 3.5 (3.5-5.0) g/dL Pituitary panel 09/13/24 09/14/24 Range/Units 10:52 06:36 Sodium 130 L 128 L (137-145) mmol/L Potassium 4.5 4.0 (3.5-5.1) mmol/L Chloride 96 L 94 L (98-107) mmol/L Carbon Dioxide 26 25 (22-30) mmol/L BUN 26 H 33 H (9-20) mg/dL Creatinine 0.99 0.95 (0.66-1.25) mg/dL Glucose 245 H 198 H (74-99) mg/dL Calcium 9.2 8.9 (8.4-10.2) mg/dL Adrenal panel 09/13/24 09/14/24 Range/Units 10:52 06:36 Sodium 130 L 128 L (137-145) mmol/L Potassium 4.5 4.0 (3.5-5.1) mmol/L Chloride 96 L 94 L (98-107) mmol/L Carbon Dioxide 26 25 (22-30) mmol/L BUN 26 H 33 H (9-20) mg/dL Creatinine 0.99 0.95 (0.66-1.25) mg/dL Glucose 245 H 198 H (74-99) mg/dL Calcium 9.2 8.9 (8.4-10.2) mg/dL Total Bilirubin 0.4 0.4 (0.2-1.3) mg/dL AST 23 25 (17-59) U/L ALT 14 14 (4-49) U/L Alkaline Phosphatase 139 H 122 (38-126) U/L Total Protein 7.1 6.5 (6.3-8.2) g/dL Albumin 3.9 3.5 (3.5-5.0) g/dL Assessment and Plan (1) Constipation Narrative/Plan: 89-year-old male with abdominal distention and constipation seen on CAT scan. Will order lactulose in addition to the Colace already ordered. Continue clear liquids for today. Will follow. Current Visit: Yes Status: Acute Code(s): K59.00 - CONSTIPATION, UNSPECIFIED SNOMED Code(s): 78735419
[2024-09-14] MEDS: LACTULOSE 20 GM/30 ML CUP PO SCH (10:33)
[2024-09-14 11:26] LABS: Glucose,Whole Blood 197 mg/dL (70-110)
[2024-09-14] MEDS: SODIUM CHLORIDE 0.9% 1,000 ML IV STA (13:57)
--- NOTE | 2024-09-14 13:57 | P.PN ---
Subjective Progress Note Date: 09/14/24 Jose Ruiz, is an 89-year-old male who presented to [facility] emergency room with a chief complaint of generalized weakness and fall at home, patient was found on the floor in his home, EMS were called and patient was brought into emergency room. He has a known history of hypertension, diabetes mellitus, coronary artery disease with angina, benign prostatic hypertrophy, history of poor vision with cataract, and history of dementia He was evaluated in the emergency room vital examination on presentation revealed a temperature of 97.3 pulse 77 respiration 18 blood pressure 188/86 pulse ox 96% on room air Laboratory data revealed a white blood count of 11.3 hemoglobin 13.2 platelet count 211 BUN 18 creatinine 0.88 glucose 294 lactic acid 2.4 Testing in the emergency room revealed CT scan of the brain was done in the emergency room and revealed left giacomo hypodense white matter changes new from 2020, acute/subacute CVA should be considered, remote left fregoso radiata injury , cervical spine CT scan revealed no evidence of fracture, chest x-ray revealed no acute cardiopulmonary disease. Patient was admitted to medical floor for further evaluation and treatment On 09/11/2024 patient is alert and oriented x 3 currently sitting up in chair. MRI was completed awaiting results daughter at bedside requesting stool softener we will add Colace. Neurology services are following will consult PT OT services. Will also consult social work services for discharge planning. C urrent vital signs temp 98.1, heart rate 74, respiratory rate 16, blood pressure 169/83 with a pulse ox of 95% on room air On 09/12/2024 patient was seen and examined on the medical floor he is alert and oriented in no apparent distress he is complaining of constipation otherwise he denies any complaints there is no fever or chills no headache or dizziness no chest pain no shortness of breath no cough no nausea or vomiting no abdominal pain no diarrhea and no urinary symptoms. At this time we are still awaiting for MRI results, continue with physical therapy and Occupational Therapy, will follow in a.m.. on 09/13/2024 patient is alert and oriented resting comfortably in bed. Still awaiting official report of MRI. Discharge planning to [facility]. at this time patient denies chest pain or shortness of breath. Patient denies nausea vomiting or diarrhea. Patient denies any urinary burning or frequency On 09/14/2024 patient was seen and examined on the medical floor he is alert and oriented x 3 in no apparent distress, at this time he denies any complaints there is no fever or chills no headache or dizziness no chest pain no shortness of breath no cough no nausea or vomiting no abdominal pain no diarrhea and no urinary symptoms. Over the weekend he had abdominal discomfort with abdominal distention, CT scan of the abdomen revealed evidence of constipation with possible ileus, his diet was switched to clear liquid diet he was seen by Dr. Bright in surgical consultation, he was started on Colace and lactulose, he had bowel movement since then. Today sodium is down to 128 he was started on IV normal saline at 50 cc/h, will recheck labs in a.m.. Plan is for patient to be transferred to [facility] when medically stable. Objective - Vital Signs Vital signs: Vital Signs Temp 98.2 F 09/14/24 08:00 Pulse 74 09/14/24 08:00 Resp 20 09/14/24 08:00 BP 148/77 09/14/24 08:00 Pulse Ox 98 09/14/24 08:00 FiO2 Intake & Output 09/13/24 09/14/24 09/14/24 18:59 06:59 18:59 Intake Total 138 20 180 Output Total 509 Balance -371 20 180 Weight 78.5 kg Intake: IV 20 20 Invasive Line 2 20 20 Oral 118 180 Output: Urine 350 Post Void Residual 159 Other: Voiding Method Diaper Diaper Diaper External Catheter External Catheter # Voids 3 1 # Bowel Movements 2 - Exam In general patient is alert and oriented x 3 in no distress HEENT head normocephalic and atraumatic Neck is supple no JVD no goiter no lymphadenopathy no carotid bruit Chest examination is clear to auscultation no crackles no wheezing Cardiac exam reveals regular heart sounds S1 and S2 no gallops no murmurs Abdomen is soft nontender no organomegaly with normal bowel sounds Extremity exam reveals no edema no cyanosis or clubbing Neurological examination reveals no gross focal deficits - Labs CBC & Chem 7: 09/14/24 06:36 09/14/24 06:36 Labs: Abnormal Lab Results - Last 24 Hours (Table) 09/13/24 09/13/24 09/13/24 Range/Units 10:52 10:52 11:32 RBC 4.27 L (4.30-5.90) m/uL Hgb (13.0-17.5) gm/dL Hct (39.0-53.0) % Lymphocytes # 0.6 L (1.0-4.8) k/uL Sodium 130 L (137-145) mmol/L Chloride 96 L (98-107) mmol/L BUN 26 H (9-20) mg/dL Glucose 245 H (74-99) mg/dL POC Glucose (mg/dL) 227 H (70-110) mg/dL Alkaline Phosphatase 139 H (38-126) U/L 09/13/24 09/13/24 09/14/24 Range/Units 16:36 20:18 06:08 RBC (4.30-5.90) m/uL Hgb (13.0-17.5) gm/dL Hct (39.0-53.0) % Lymphocytes # (1.0-4.8) k/uL Sodium (137-145) mmol/L Chloride (98-107) mmol/L BUN (9-20) mg/dL Glucose (74-99) mg/dL POC Glucose (mg/dL) 236 H 219 H 194 H (70-110) mg/dL Alkaline Phosphatase (38-126) U/L 09/14/24 09/14/24 Range/Units 06:36 06:36 RBC 4.00 L (4.30-5.90) m/uL Hgb 12.5 L (13.0-17.5) gm/dL Hct 35.9 L (39.0-53.0) % Lymphocytes # 0.8 L (1.0-4.8) k/uL Sodium 128 L (137-145) mmol/L Chloride 94 L (98-107) mmol/L BUN 33 H (9-20) mg/dL Glucose 198 H (74-99) mg/dL POC Glucose (mg/dL) (70-110) mg/dL Alkaline Phosphatase (38-126) U/L Assessment and Plan Plan: Generalized weakness with fall at home Abnormal CT scan of the brain revealing hypodense lesion over the left giacomo, neurology consultation was requested MRI of the brain ordered. Underlying history of hypertension Underlying history of hyperlipidemia Underlying history of diabetes mellitus Underlying history of dementia At this time patient is admitted to medical floor Home medications reviewed and reordered Will check echocardiogram and carotid Doppler Neurology consultation requested, MRI of the brain ordered Physical therapy and Occupational Therapy requested For DVT prophylaxis subcu Lovenox Will follow closely
[2024-09-14] MEDS ORDERED: ZINC OXIDE PASTE (Z-GUARD) 1 APPLIC TOPICAL PRN (16:03)
[2024-09-14 16:45] LABS: Glucose,Whole Blood 214 mg/dL (70-110)
[2024-09-14 20:10] LABS: Glucose,Whole Blood 221 mg/dL (70-110)
[2024-09-15 06:14] LABS: Glucose,Whole Blood 154 mg/dL (70-110)
[2024-09-15 07:35] LABS: Basophils % (A) 0 %; Eosinophils # (A) 0.8 k/uL (0-0.7); Eosinophils % (A) 14 %; HCT 36.2 % (39.0-53.0); Lymphocytes % (A) 17 %; MCV 90.9 fL (80.0-100.0); Mean Platelet Volume 7.9; Monocytes # (A) 0.7 k/uL (0-1.0); Monocytes % (A) 13 %; Neutrophils # (A) 2.9 k/uL (1.3-7.7); Neutrophils % (A) 52 %; Platelet Count 161 k/uL (150-450); RBC 3.99 m/uL (4.30-5.90); RDW 12.5 % (11.5-15.5); WBC 5.6 k/uL (3.8-10.6)
[2024-09-15 08:06] LABS: ALT 13 U/L (4-49); AST 28 U/L (17-59); African American GFR (CKD) >90 (>60 ml/min/1.73 sqM); Albumin 3.1 g/dL (3.5-5.0); Alkaline Phosphatase 110 U/L (38-126); Anion Gap 2 mmol/L; Blood Urea Nitrogen 24 mg/dL (9-20); Calcium 8.7 mg/dL (8.4-10.2); Carbon Dioxide 30 mmol/L (22-30); Chloride 97 mmol/L (98-107); Glucose 150 mg/dL (74-99); Non-African American GFR(CKD) 79 (>60 ml/min/1.73 sqM); Potassium 3.7 mmol/L (3.5-5.1); Sodium 129 mmol/L (137-145); Total Bilirubin 0.4 mg/dL (0.2-1.3)
--- NOTE | 2024-09-15 09:09 | P.PN ---
Subjective Progress Note Date: 09/15/24 Jose Ruiz, is an 89-year-old male who presented to [facility] emergency room with a chief complaint of generalized weakness and fall at home, patient was found on the floor in his home, EMS were called and patient was brought into emergency room. He has a known history of hypertension, diabetes mellitus, coronary artery disease with angina, benign prostatic hypertrophy, history of poor vision with cataract, and history of dementia He was evaluated in the emergency room vital examination on presentation revealed a temperature of 97.3 pulse 77 respiration 18 blood pressure 188/86 pulse ox 96% on room air Laboratory data revealed a white blood count of 11.3 hemoglobin 13.2 platelet count 211 BUN 18 creatinine 0.88 glucose 294 lactic acid 2.4 Testing in the emergency room revealed CT scan of the brain was done in the emergency room and revealed left giacomo hypodense white matter changes new from 2020, acute/subacute CVA should be considered, remote left fregoso radiata injury , cervical spine CT scan revealed no evidence of fracture, chest x-ray revealed no acute cardiopulmonary disease. Patient was admitted to medical floor for further evaluation and treatment On 09/11/2024 patient is alert and oriented x 3 currently sitting up in chair. MRI was completed awaiting results daughter at bedside requesting stool softener we will add Colace. Neurology services are following will consult PT OT services. Will also consult social work services for discharge planning. C urrent vital signs temp 98.1, heart rate 74, respiratory rate 16, blood pressure 169/83 with a pulse ox of 95% on room air On 09/12/2024 patient was seen and examined on the medical floor he is alert and oriented in no apparent distress he is complaining of constipation otherwise he denies any complaints there is no fever or chills no headache or dizziness no chest pain no shortness of breath no cough no nausea or vomiting no abdominal pain no diarrhea and no urinary symptoms. At this time we are still awaiting for MRI results, continue with physical therapy and Occupational Therapy, will follow in a.m.. on 09/13/2024 patient is alert and oriented resting comfortably in bed. Still awaiting official report of MRI. Discharge planning to [facility]. at this time patient denies chest pain or shortness of breath. Patient denies nausea vomiting or diarrhea. Patient denies any urinary burning or frequency On 09/14/2024 patient was seen and examined on the medical floor he is alert and oriented x 3 in no apparent distress, at this time he denies any complaints there is no fever or chills no headache or dizziness no chest pain no shortness of breath no cough no nausea or vomiting no abdominal pain no diarrhea and no urinary symptoms. Over the weekend he had abdominal discomfort with abdominal distention, CT scan of the abdomen revealed evidence of constipation with possible ileus, his diet was switched to clear liquid diet he was seen by Dr. Bright in surgical consultation, he was started on Colace and lactulose, he had bowel movement since then. Today sodium is down to 128 he was started on IV normal saline at 50 cc/h, will recheck labs in a.m.. Plan is for patient to be transferred to [facility] when medically stable. On 09/15/2024 patient is alert and oriented x 3. Sodium slightly improving to 129 continue fluids at 50. Current vital signs temp 97.2, heart rate 73, respiratory rate 18, blood pressure 156/74 with a pulse ox of 94% on room air. Patient maintained on clear liquid diet surgical services are following. Patient denies chest pain or shortness of breath. Patient denies nausea vomiting or diarrhea. Patient denies any urinary burning or frequency Objective - Vital Signs Vital signs: Vital Signs Temp 97.2 F L 09/15/24 08:14 Pulse 73 09/15/24 08:14 Resp 18 09/15/24 08:14 BP 156/74 09/15/24 08:14 Pulse Ox 94 L 09/15/24 08:14 FiO2 Intake & Output 09/14/24 09/15/24 09/15/24 18:59 06:59 18:59 Intake Total 568 Balance 568 Weight 78 kg Intake: Oral 568 Other: Voiding Method Diaper Diaper External Catheter # Voids 2 # Bowel Movements 1 - Exam In general patient is alert and oriented x 3 in no distress HEENT head normocephalic and atraumatic Neck is supple no JVD no goiter no lymphadenopathy no carotid bruit Chest examination is clear to auscultation no crackles no wheezing Cardiac exam reveals regular heart sounds S1 and S2 no gallops no murmurs Abdomen is soft nontender no organomegaly with normal bowel sounds Extremity exam reveals no edema no cyanosis or clubbing Neurological examination reveals no gross focal deficits - Labs CBC & Chem 7: 09/15/24 06:33 09/15/24 07:06 Labs: Abnormal Lab Results - Last 24 Hours (Table) 09/14/24 09/14/24 09/14/24 Range/Units 11:25 16:43 20:08 RBC (4.30-5.90) m/uL Hgb (13.0-17.5) gm/dL Hct (39.0-53.0) % Eosinophils # (0-0.7) k/uL Sodium (137-145) mmol/L Chloride (98-107) mmol/L BUN (9-20) mg/dL Glucose (74-99) mg/dL POC Glucose (mg/dL) 197 H 214 H 221 H (70-110) mg/dL Total Protein (6.3-8.2) g/dL Albumin (3.5-5.0) g/dL 09/15/24 09/15/24 09/15/24 Range/Units 06:12 06:33 07:06 RBC 3.99 L (4.30-5.90) m/uL Hgb 12.0 L (13.0-17.5) gm/dL Hct 36.2 L (39.0-53.0) % Eosinophils # 0.8 H (0-0.7) k/uL Sodium 129 L (137-145) mmol/L Chloride 97 L (98-107) mmol/L BUN 24 H (9-20) mg/dL Glucose 150 H (74-99) mg/dL POC Glucose (mg/dL) 154 H (70-110) mg/dL Total Protein 6.0 L (6.3-8.2) g/dL Albumin 3.1 L (3.5-5.0) g/dL Assessment and Plan Plan: Generalized weakness with fall at home Abnormal CT scan of the brain revealing hypodense lesion over the left giacomo, neurology consultation was requested MRI of the brain ordered. Underlying history of hypertension Underlying history of hyperlipidemia Underlying history of diabetes mellitus Underlying history of dementia Hyponatremia. Patient maintained on normal saline at 50 Constipation. Surgical services following patient maintained on clear liquid diet patient started on Colace and lactulose At this time patient is admitted to medical floor Home medications reviewed and reordered Will check echocardiogram and carotid Doppler Neurology consultation requested, MRI of the brain ordered Physical therapy and Occupational Therapy requested For DVT prophylaxis subcu Lovenox Will follow closely
[2024-09-15 11:31] LABS: Glucose,Whole Blood 218 mg/dL (70-110)
--- NOTE | 2024-09-15 12:44 | CDI ---
Documentation Clarification Form Date: 09/15/2024 From: Suyapa Jerez RN CCDS Phone: [phone] Admit Date: 09/09/2024 06:09:00 PM Patient Name: Jose Ruiz Visit Number: [id number] Discharge Date: ATTENTION: The Clinical Documentation Specialists (CDI) and [facility] Coding Staff appreciate your assistance in clarifying documentation. Please respond to the clarification below the line at the bottom and electronically sign. The CDI & [facility] Coding staff will review the response and follow-up if needed. Please note: Queries are made part of the Legal Health Record. If you have any questions, please contact the author of this message via ITS. Doctor/Provider: Jun Alvarez MD: Your patient has a sodium level of 135-129 09/09-09/15. Please clarify if there is an additional diagnosis and/or clinical significance related to this lab value. History/Risk Factors: 89-year-old male with a history of dementia, HTN, DM and CAD who presents after fall Clinical indicators: 09/14 IM PN, Subjective 09/14: Today sodium is down to 128 he was started on IV normal saline at 50cc/hour" 09/09, 09/10, 09/12-09/05 Sodium: 134, 135, 133, 130, 128, 129 Treatment: Normal Saline IV 50cc/hour 09/14-09/15 Is there an additional diagnosis and/or clinical significance related to the above lab result/information? [ ] Hyponatremia [ ] Abnormal Lab Value, not clinically significant [ ] Other condition, please specify [ ] Unable to determine Answered in IM note 09/16 hyponatremia MTDD
[2024-09-15] MEDS: ONDANSETRON 4 MG/2 ML VIAL IVP PRN (13:49)
--- NOTE | 2024-09-15 13:54 | P.PN ---
Subjective Progress Note Date: 09/15/24 SURGICAL PROGRESS NOTE CHIEF COMPLAINT: Constipation HISTORY OF PRESENT ILLNESS: Patient sitting up at bedside chair. Abdomen distended. He has had bowel movements. Per nursing staff the bowel movement from yesterday was liquidy. He reports no abdominal pain. Denies any nausea or vomiting. Ate about 50% of his liquid breakfast. Afebrile. WBC 5.6 Hgb 12 sodium 129 PHYSICAL EXAM: VITAL SIGNS: Reviewed. GENERAL: Well-developed in no acute distress. ABDOMEN: Distended. Nontender. Tympanic NEUROLOGIC: Alert and oriented. Cranial nerves II through XII grossly intact. ASSESSMENT: 1. Constipation 2. Abdominal distention PLAN: -Continue lactulose and Colace -Continue to monitor -Continue clear liquids for now Physician Rn Staff note has been reviewed by physician. Signing provider agrees with the documented findings, assessment, and plan of care. I have personally seen and examined the patient, reviewed the [employer] /PAs history, exam and MDM and agree with the assessment and plan as written. Based on total visit time, I have performed more than 50% of the visit. As above: Patient complaining of some nausea today. Denies currently. No vomiting. Had liquid stools and then had an enema as well. Per the family patient takes up to 12 stool softeners per day on a regular basis. Last colonoscopy 20 years ago or so. Continue clear liquid diet for now. Continue lactulose. Abdominal x-ray tomorrow. Ambulate. Objective - Vital Signs Vital signs: Vital Signs Temp 98.0 F 09/15/24 10:48 Pulse 78 09/15/24 13:25 Resp 16 09/15/24 11:08 BP 153/78 09/15/24 11:08 Pulse Ox 96 09/15/24 11:08 FiO2 Intake & Output 09/14/24 09/15/24 09/15/24 18:59 06:59 18:59 Intake Total 568 Balance 568 Weight 78 kg Intake: Oral 568 Other: Voiding Method Diaper Diaper Diaper External Catheter # Voids 2 # Bowel Movements 1 - Labs CBC & Chem 7: 09/15/24 06:33 09/15/24 07:06 Labs: Abnormal Lab Results - Last 24 Hours (Table) 09/14/24 09/14/24 09/15/24 Range/Units 16:43 20:08 06:12 RBC (4.30-5.90) m/uL Hgb (13.0-17.5) gm/dL Hct (39.0-53.0) % Eosinophils # (0-0.7) k/uL Sodium (137-145) mmol/L Chloride (98-107) mmol/L BUN (9-20) mg/dL Glucose (74-99) mg/dL POC Glucose (mg/dL) 214 H 221 H 154 H (70-110) mg/dL Total Protein (6.3-8.2) g/dL Albumin (3.5-5.0) g/dL 09/15/24 09/15/24 09/15/24 Range/Units 06:33 07:06 11:30 RBC 3.99 L (4.30-5.90) m/uL Hgb 12.0 L (13.0-17.5) gm/dL Hct 36.2 L (39.0-53.0) % Eosinophils # 0.8 H (0-0.7) k/uL Sodium 129 L (137-145) mmol/L Chloride 97 L (98-107) mmol/L BUN 24 H (9-20) mg/dL Glucose 150 H (74-99) mg/dL POC Glucose (mg/dL) 218 H (70-110) mg/dL Total Protein 6.0 L (6.3-8.2) g/dL Albumin 3.1 L (3.5-5.0) g/dL
[2024-09-15 16:56] LABS: Glucose,Whole Blood 181 mg/dL (70-110)
[2024-09-15 20:21] LABS: Glucose,Whole Blood 174 mg/dL (70-110)
[2024-09-16 06:50] LABS: Glucose,Whole Blood 147 mg/dL (70-110)
--- NOTE | 2024-09-16 08:15 | XR ---
EXAMINATION TYPE: XR abdomen 2V DATE OF EXAM: 09/16/2024 6:36 AM COMPARISON: None CLINICAL INDICATION: Male, 89 years old with history of abdominal distention, constipation; TECHNIQUE: Two views of the abdomen were obtained. FINDINGS: Gaseous dilation of bowel throughout the abdomen. Moderate amount stool throughout the colo n. There is no evidence for organomegaly or pneumoperitoneum. The osseous structures are intact. No abnormal calcifications are present. Fecal material and gas are demonstrated throughout the colon an d rectum. IMPRESSION: Gaseous dilation of bowel, moderate amount stool. [facility], , 09/16/2024 8:12 AM
[2024-09-16 08:27] LABS: Basophils % (A) 0 %; Eosinophils # (A) 0.7 k/uL (0-0.7); Eosinophils % (A) 13 %; HCT 34.5 % (39.0-53.0); HGB 11.6 gm/dL (13.0-17.5); Lymphocytes # (A) 0.8 k/uL (1.0-4.8); Lymphocytes % (A) 15 %; MCH 30.2 pg (25.0-35.0); MCHC 33.7 g/dL (31.0-37.0); MCV 89.7 fL (80.0-100.0); Mean Platelet Volume 8.6; Monocytes # (A) 0.5 k/uL (0-1.0); Monocytes % (A) 9 %; Neutrophils # (A) 3.1 k/uL (1.3-7.7); Neutrophils % (A) 60 %; Platelet Count 166 k/uL (150-450); RBC 3.85 m/uL (4.30-5.90); RDW 12.6 % (11.5-15.5); WBC 5.2 k/uL (3.8-10.6)
[2024-09-16 08:37] LABS: ALT 14 U/L (4-49); AST 28 U/L (17-59); African American GFR (CKD) >90 (>60 ml/min/1.73 sqM); Albumin 3.2 g/dL (3.5-5.0); Alkaline Phosphatase 113 U/L (38-126); Anion Gap 2 mmol/L; Blood Urea Nitrogen 15 mg/dL (9-20); Calcium 8.5 mg/dL (8.4-10.2); Carbon Dioxide 31 mmol/L (22-30); Chloride 97 mmol/L (98-107); Glucose 149 mg/dL (74-99); Non-African American GFR(CKD) 83 (>60 ml/min/1.73 sqM); Potassium 3.4 mmol/L (3.5-5.1); Sodium 130 mmol/L (137-145); Total Bilirubin 0.4 mg/dL (0.2-1.3); Total Protein 6.1 g/dL (6.3-8.2)
[2024-09-16] MEDS ORDERED: Potassium Replacement Protocol 1 EACH MISC MISCELLANE PRN (08:57)
--- NOTE | 2024-09-16 08:58 | P.PN ---
Subjective Progress Note Date: 09/16/24 Jose Ruiz, is an 89-year-old male who presented to [facility] emergency room with a chief complaint of generalized weakness and fall at home, patient was found on the floor in his home, EMS were called and patient was brought into emergency room. He has a known history of hypertension, diabetes mellitus, coronary artery disease with angina, benign prostatic hypertrophy, history of poor vision with cataract, and history of dementia He was evaluated in the emergency room vital examination on presentation revealed a temperature of 97.3 pulse 77 respiration 18 blood pressure 188/86 pulse ox 96% on room air Laboratory data revealed a white blood count of 11.3 hemoglobin 13.2 platelet count 211 BUN 18 creatinine 0.88 glucose 294 lactic acid 2.4 Testing in the emergency room revealed CT scan of the brain was done in the emergency room and revealed left giacomo hypodense white matter changes new from 2020, acute/subacute CVA should be considered, remote left fregoso radiata injury , cervical spine CT scan revealed no evidence of fracture, chest x-ray revealed no acute cardiopulmonary disease. Patient was admitted to medical floor for further evaluation and treatment On 09/11/2024 patient is alert and oriented x 3 currently sitting up in chair. MRI was completed awaiting results daughter at bedside requesting stool softener we will add Colace. Neurology services are following will consult PT OT services. Will also consult social work services for discharge planning. C urrent vital signs temp 98.1, heart rate 74, respiratory rate 16, blood pressure 169/83 with a pulse ox of 95% on room air On 09/12/2024 patient was seen and examined on the medical floor he is alert and oriented in no apparent distress he is complaining of constipation otherwise he denies any complaints there is no fever or chills no headache or dizziness no chest pain no shortness of breath no cough no nausea or vomiting no abdominal pain no diarrhea and no urinary symptoms. At this time we are still awaiting for MRI results, continue with physical therapy and Occupational Therapy, will follow in a.m.. on 09/13/2024 patient is alert and oriented resting comfortably in bed. Still awaiting official report of MRI. Discharge planning to [facility]. at this time patient denies chest pain or shortness of breath. Patient denies nausea vomiting or diarrhea. Patient denies any urinary burning or frequency On 09/14/2024 patient was seen and examined on the medical floor he is alert and oriented x 3 in no apparent distress, at this time he denies any complaints there is no fever or chills no headache or dizziness no chest pain no shortness of breath no cough no nausea or vomiting no abdominal pain no diarrhea and no urinary symptoms. Over the weekend he had abdominal discomfort with abdominal distention, CT scan of the abdomen revealed evidence of constipation with possible ileus, his diet was switched to clear liquid diet he was seen by Dr. Bright in surgical consultation, he was started on Colace and lactulose, he had bowel movement since then. Today sodium is down to 128 he was started on IV normal saline at 50 cc/h, will recheck labs in a.m.. Plan is for patient to be transferred to [facility] when medically stable. On 09/15/2024 patient is alert and oriented x 3. Sodium slightly improving to 129 continue fluids at 50. Current vital signs temp 97.2, heart rate 73, respiratory rate 18, blood pressure 156/74 with a pulse ox of 94% on room air. Patient maintained on clear liquid diet surgical services are following. Patient denies chest pain or shortness of breath. Patient denies nausea vomiting or diarrhea. Patient denies any urinary burning or frequency On 09/16/2024 patient is alert and oriented resting comfortably in bed. Sodium 130 potassium 3.4 will replace per protocol. Patient remains on Colace and lactulose surgical services are following patient maintained on clear liquid diet. Patient did have bowel movement this a.m. Patient denies chest pain or shortness of breath. Patient denies nausea vomiting or diarrhea. Patient denies any urinary burning or frequency Objective - Vital Signs Vital signs: Vital Signs Temp 98.1 F 09/16/24 07:08 Pulse 70 09/16/24 07:08 Resp 18 09/16/24 07:08 BP 156/76 09/16/24 07:08 Pulse Ox 96 09/16/24 07:08 FiO2 Intake & Output 09/15/24 09/16/24 09/16/24 18:59 06:59 18:59 Intake Total 120 Output Total 300 400 300 Balance -300 -400 -180 Weight 80 kg Intake: Oral 120 Output: Urine 300 400 300 Other: Voiding Method External Catheter Diaper # Voids 1 # Bowel Movements 1 1 - Exam In general patient is alert and oriented x 3 in no distress HEENT head normocephalic and atraumatic Neck is supple no JVD no goiter no lymphadenopathy no carotid bruit Chest examination is clear to auscultation no crackles no wheezing Cardiac exam reveals regular heart sounds S1 and S2 no gallops no murmurs Abdomen is soft nontender no organomegaly with normal bowel sounds Extremity exam reveals no edema no cyanosis or clubbing Neurological examination reveals no gross focal deficits - Labs CBC & Chem 7: 09/16/24 07:11 09/16/24 07:11 Labs: Abnormal Lab Results - Last 24 Hours (Table) 09/15/24 09/15/24 09/15/24 Range/Units 11:30 16:54 20:19 RBC (4.30-5.90) m/uL Hgb (13.0-17.5) gm/dL Hct (39.0-53.0) % Lymphocytes # (1.0-4.8) k/uL Sodium (137-145) mmol/L Potassium (3.5-5.1) mmol/L Chloride (98-107) mmol/L Carbon Dioxide (22-30) mmol/L Glucose (74-99) mg/dL POC Glucose (mg/dL) 218 H 181 H 174 H (70-110) mg/dL Total Protein (6.3-8.2) g/dL Albumin (3.5-5.0) g/dL 09/16/24 09/16/24 09/16/24 Range/Units 06:48 07:11 07:11 RBC 3.85 L (4.30-5.90) m/uL Hgb 11.6 L (13.0-17.5) gm/dL Hct 34.5 L (39.0-53.0) % Lymphocytes # 0.8 L (1.0-4.8) k/uL Sodium 130 L (137-145) mmol/L Potassium 3.4 L (3.5-5.1) mmol/L Chloride 97 L (98-107) mmol/L Carbon Dioxide 31 H (22-30) mmol/L Glucose 149 H (74-99) mg/dL POC Glucose (mg/dL) 147 H (70-110) mg/dL Total Protein 6.1 L (6.3-8.2) g/dL Albumin 3.2 L (3.5-5.0) g/dL Assessment and Plan Plan: Generalized weakness with fall at home Abnormal CT scan of the brain revealing hypodense lesion over the left giacomo, neurology consultation was requested MRI of the brain ordered. Underlying history of hypertension Underlying history of hyperlipidemia Underlying history of diabetes mellitus Underlying history of dementia Hyponatremia. Patient maintained on normal saline at 50 Constipation. Surgical services following patient maintained on clear liquid diet patient started on Colace and lactulose At this time patient is admitted to medical floor Home medications reviewed and reordered Will check echocardiogram and carotid Doppler Neurology consultation requested, MRI of the brain ordered Physical therapy and Occupational Therapy requested For DVT prophylaxis subcu Lovenox Will follow closely
[2024-09-16] MEDS: POTASSIUM CHLORIDE ER 20 MEQ TAB.ER PO SCH (09:10)
[2024-09-16 10:38] VITALS: RESP 16
[2024-09-16 12:07] LABS: Glucose,Whole Blood 255 mg/dL (70-110)
--- NOTE | 2024-09-16 12:36 | P.PN ---
Subjective Progress Note Date: 09/16/24 SURGICAL PROGRESS NOTE CHIEF COMPLAINT: Constipation HISTORY OF PRESENT ILLNESS: Patient sitting at bedside chair. He is abdomen is softer. He denies any abdominal pain. Denies any nausea or vomiting. He is having bowel movements. Abdominal x-ray had reported gaseous dilation of bowel moderate amount of stool. Afebrile. WBC 5.2 potassium 3.4 PHYSICAL EXAM: VITAL SIGNS: Reviewed. GENERAL: Well-developed in no acute distress. ABDOMEN: Less distended. Nontender. Tympanic NEUROLOGIC: Awake and alert ASSESSMENT: 1. Constipation improving 2. Abdominal distention PLAN: -Will give another soapsuds enema -Advance diet to consistent carbohydrate -replace potassium -Patient can be discharged from surgical standpoint to ECF -Recommend to continue a bowel regimen such as lactulose after discharge Physician Bird Cage Assembler note has been reviewed by physician. Signing provider agrees with the documented findings, assessment, and plan of care. Objective - Vital Signs Vital signs: Vital Signs Temp 97.6 F 09/16/24 10:37 Pulse 67 09/16/24 10:37 Resp 16 09/16/24 10:37 BP 170/62 09/16/24 10:37 Pulse Ox 96 09/16/24 10:37 FiO2 Intake & Output 09/15/24 09/16/24 09/16/24 18:59 06:59 18:59 Intake Total 120 Output Total 300 400 300 Balance -300 -400 -180 Weight 80 kg Intake: Oral 120 Output: Urine 300 400 300 Other: Voiding Method External Catheter Diaper Diaper Incontinent # Voids 1 # Bowel Movements 1 2 - Labs CBC & Chem 7: 09/16/24 07:11 09/16/24 07:11 Labs: Abnormal Lab Results - Last 24 Hours (Table) 09/15/24 09/15/24 09/16/24 Range/Units 16:54 20:19 06:48 RBC (4.30-5.90) m/uL Hgb (13.0-17.5) gm/dL Hct (39.0-53.0) % Lymphocytes # (1.0-4.8) k/uL Sodium (137-145) mmol/L Potassium (3.5-5.1) mmol/L Chloride (98-107) mmol/L Carbon Dioxide (22-30) mmol/L Glucose (74-99) mg/dL POC Glucose (mg/dL) 181 H 174 H 147 H (70-110) mg/dL Total Protein (6.3-8.2) g/dL Albumin (3.5-5.0) g/dL 09/16/24 09/16/24 09/16/24 Range/Units 07:11 07:11 12:05 RBC 3.85 L (4.30-5.90) m/uL Hgb 11.6 L (13.0-17.5) gm/dL Hct 34.5 L (39.0-53.0) % Lymphocytes # 0.8 L (1.0-4.8) k/uL Sodium 130 L (137-145) mmol/L Potassium 3.4 L (3.5-5.1) mmol/L Chloride 97 L (98-107) mmol/L Carbon Dioxide 31 H (22-30) mmol/L Glucose 149 H (74-99) mg/dL POC Glucose (mg/dL) 255 H (70-110) mg/dL Total Protein 6.1 L (6.3-8.2) g/dL Albumin 3.2 L (3.5-5.0) g/dL
[2024-09-16 13:53] VITALS: BMI 26.8
[2024-09-16 16:18] LABS: Glucose,Whole Blood 146 mg/dL (70-110)
[2024-09-16 19:57] LABS: Glucose,Whole Blood 243 mg/dL (70-110)
[2024-09-17 06:11] LABS: Glucose,Whole Blood 168 mg/dL (70-110)
[2024-09-17 08:03] LABS: Basophils % (A) 0 %; Eosinophils # (A) 0.8 k/uL (0-0.7); Eosinophils % (A) 13 %; Lymphocytes # (A) 0.8 k/uL (1.0-4.8); Lymphocytes % (A) 14 %; MCH 29.9 pg (25.0-35.0); MCHC 33.2 g/dL (31.0-37.0); MCV 89.9 fL (80.0-100.0); Mean Platelet Volume 7.7; Monocytes # (A) 0.6 k/uL (0-1.0); Monocytes % (A) 10 %; Neutrophils # (A) 3.7 k/uL (1.3-7.7); Neutrophils % (A) 61 %; Platelet Count 179 k/uL (150-450); RDW 12.2 % (11.5-15.5); WBC 6.1 k/uL (3.8-10.6)
[2024-09-17 08:17] LABS: ALT 14 U/L (4-49); AST 29 U/L (17-59); African American GFR (CKD) >90 (>60 ml/min/1.73 sqM); Albumin 3.4 g/dL (3.5-5.0); Alkaline Phosphatase 128 U/L (38-126); Anion Gap 2 mmol/L; Blood Urea Nitrogen 8 mg/dL (9-20); Calcium 8.8 mg/dL (8.4-10.2); Carbon Dioxide 34 mmol/L (22-30); Chloride 97 mmol/L (98-107); Glucose 149 mg/dL (74-99); Non-African American GFR(CKD) 87 (>60 ml/min/1.73 sqM); Potassium 3.2 mmol/L (3.5-5.1); Sodium 133 mmol/L (137-145); Total Bilirubin 0.4 mg/dL (0.2-1.3); Total Protein 6.2 g/dL (6.3-8.2)
[2024-09-17 08:42] VITALS: TEMP 97.3
[2024-09-17] MEDS ORDERED: Potassium Replacement Protocol 1 EACH MISC MISCELLANE PRN (08:58)
--- NOTE | 2024-09-17 10:54 | P.PN ---
Subjective Progress Note Date: 09/16/24 Patient initially seen by Dr. Anup Sheffield. Please refer to his note for details. Patient is a 89-year-old male, came to the hospital because he fell on the floor. CT head showed hypodensity of the giacomo. Patient was seen for follow-up. Patient is laying comfortably in the bed. Offers no complaints. Some of the workup during this hospital visit consisted of: Initial serum glucose is 294, plasma lactic acid is 2.4. I reviewed the rest of the lab workup CT of the head and cervical spine is reported as left pontine hypodensity white matter changes new from 11/18/2020. Consider further evaluation with MRI, acute subacute CVA should be considered in the differential correlate with symptoms. Remote left fregoso radiata injury new from 11/18/2020. No evidence cervical spine fracture. Mild multilevel degenerative disc disease. I personally reviewed the CT and and feel the hypodensity over the left pontine seems old not new. MRI Brain revealed atrophy with chronic appearing periventricular white matter ischemic type changes. White matter changes are within the brainstem. 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 I personally reviewed MRI agree with the findings. Objective - Vital Signs Vital signs: Vital Signs Temp 97.6 F 09/16/24 10:37 Pulse 77 09/16/24 16:00 Resp 16 09/16/24 16:00 BP 148/77 09/16/24 16:00 Pulse Ox 91 L 09/16/24 16:00 FiO2 Intake & Output 09/16/24 09/16/24 09/17/24 06:59 18:59 06:59 Intake Total 120 Output Total 400 900 Balance -400 -780 Weight 80 kg 80 kg Intake: Oral 120 Output: Urine 400 900 Other: Voiding Method Diaper Diaper Incontinent # Bowel Movements 2 - Exam Patient is alert and awake. He knows it is September, but thinks it is 1989, then said 1997, then said 86. He knows he is in hospital in he knows name of the current president Biden. Bhavesh Yañez in [place]. Speech and language functions are normal. Detailed cognitive function testing deferred. On cranial examination, patient's left pupil is larger, nonreactive with hazy cornea. He only sees out of the right eye. Visual wall are full with the right eye. Face is symmetric. Tongue protrudes in midline. On muscle strength testing, the strength is normal in both upper limbs. (Right/left) ankle dorsiflexion 5/5, hip flexion 5-/5. - Labs CBC & Chem 7: 09/17/24 07:31 09/17/24 07:31 Labs: Abnormal Lab Results - Last 24 Hours (Table) 09/15/24 09/16/24 09/16/24 Range/Units 20:19 06:48 07:11 RBC 3.85 L (4.30-5.90) m/uL Hgb 11.6 L (13.0-17.5) gm/dL Hct 34.5 L (39.0-53.0) % Lymphocytes # 0.8 L (1.0-4.8) k/uL Sodium (137-145) mmol/L Potassium (3.5-5.1) mmol/L Chloride (98-107) mmol/L Carbon Dioxide (22-30) mmol/L Glucose (74-99) mg/dL POC Glucose (mg/dL) 174 H 147 H (70-110) mg/dL Total Protein (6.3-8.2) g/dL Albumin (3.5-5.0) g/dL 09/16/24 09/16/24 09/16/24 Range/Units 07:11 12:05 16:15 RBC (4.30-5.90) m/uL Hgb (13.0-17.5) gm/dL Hct (39.0-53.0) % Lymphocytes # (1.0-4.8) k/uL Sodium 130 L (137-145) mmol/L Potassium 3.4 L (3.5-5.1) mmol/L Chloride 97 L (98-107) mmol/L Carbon Dioxide 31 H (22-30) mmol/L Glucose 149 H (74-99) mg/dL POC Glucose (mg/dL) 255 H 146 H (70-110) mg/dL Total Protein 6.1 L (6.3-8.2) g/dL Albumin 3.2 L (3.5-5.0) g/dL 09/16/24 Range/Units 19:45 RBC (4.30-5.90) m/uL Hgb (13.0-17.5) gm/dL Hct (39.0-53.0) % Lymphocytes # (1.0-4.8) k/uL Sodium (137-145) mmol/L Potassium (3.5-5.1) mmol/L Chloride (98-107) mmol/L Carbon Dioxide (22-30) mmol/L Glucose (74-99) mg/dL POC Glucose (mg/dL) 243 H (70-110) mg/dL Total Protein (6.3-8.2) g/dL Albumin (3.5-5.0) g/dL Assessment and Plan Assessment: This is an 89-year-old gentleman who found on the floor and the daughter is unsure if he fell because of his poor vision and tripped as a result. Patient does not have any history of stroke or seizure in the past. Patient does not have any focal deficit. MRI of the brain revealed no acute process. Fall and likely mechanical. Hypertensive urgency Elevated blood sugar in the 200s Remote infarct left fregoso radiata on CT head Lower extremity edema and the patient was on "water pills" Underlying history of dementia Diabetes mellitus History of hypertension Plan: MRI of the brain revealed atrophy with chronic appearing periventricular white matter ischemic type changes. White matter changes are within the brainstem. 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 I personally reviewed MRI, agree with the findings. No evidence of an acute stroke. Continue home dose of aspirin 81 mg daily. Continue Lipitor 10 mg nightly for secondary stroke prophylaxis PT OT are consulted. B12 598, folate 8.20 Hemoglobin A1c 8.3. Recommend optimize control of diabetes to target A1c <7.0 Will defer the rest of the medical management to primary team and other specialist Neurologically clear otherwise.
[2024-09-17 11:34] LABS: Glucose,Whole Blood 238 mg/dL (70-110)
[2024-09-17] MEDS: POTASSIUM CHLORIDE 10 MEQ in WATER FOR INJECTION 1 100ML.BAG IVPB SCH (11:39)
--- NOTE | 2024-09-17 13:11 | P.PN ---
Subjective Progress Note Date: 09/17/24 SURGICAL PROGRESS NOTE CHIEF COMPLAINT: Constipation HISTORY OF PRESENT ILLNESS: Patient lying in bed comfortably. He is tolerating diet. He did have bowel movement. Denies any abdominal pain. Afebrile. WBC 6.1 PHYSICAL EXAM: VITAL SIGNS: Reviewed. GENERAL: Well-developed in no acute distress. ABDOMEN: Soft. Nondistended. Nontender NEUROLOGIC: Awake and alert ASSESSMENT: 1. Constipation improving 2. Abdominal distention PLAN: -Patient is stable for discharge from surgical standpoint -Recommend to continue a bowel regimen at discharge -Continue regular diet Physician [employer] note has been reviewed by physician. Signing provider agrees with the documented findings, assessment, and plan of care. Objective - Vital Signs Vital signs: Vital Signs Temp 97.3 F L 09/17/24 08:42 Pulse 68 09/17/24 11:43 Resp 16 09/17/24 11:43 BP 148/70 09/17/24 11:43 Pulse Ox 95 09/17/24 11:43 FiO2 Intake & Output 09/16/24 09/17/24 09/17/24 18:59 06:59 18:59 Intake Total 120 472 Output Total 900 700 Balance -780 -700 472 Weight 80 kg Intake: Oral 120 472 Output: Urine 900 700 Other: Voiding Method Diaper Diaper Diaper Incontinent Incontinent Incontinent External Catheter External Catheter # Bowel Movements 2 - Labs CBC & Chem 7: 09/17/24 07:31 09/17/24 07:31 Labs: Abnormal Lab Results - Last 24 Hours (Table) 09/16/24 09/16/24 09/17/24 Range/Units 16:15 19:45 05:56 RBC (4.30-5.90) m/uL Hgb (13.0-17.5) gm/dL Hct (39.0-53.0) % Lymphocytes # (1.0-4.8) k/uL Eosinophils # (0-0.7) k/uL Sodium (137-145) mmol/L Potassium (3.5-5.1) mmol/L Chloride (98-107) mmol/L Carbon Dioxide (22-30) mmol/L BUN (9-20) mg/dL Creatinine (0.66-1.25) mg/dL Glucose (74-99) mg/dL POC Glucose (mg/dL) 146 H 243 H 168 H (70-110) mg/dL Alkaline Phosphatase (38-126) U/L Total Protein (6.3-8.2) g/dL Albumin (3.5-5.0) g/dL 09/17/24 09/17/24 09/17/24 Range/Units 07:31 07:31 11:32 RBC 4.00 L (4.30-5.90) m/uL Hgb 12.0 L (13.0-17.5) gm/dL Hct 36.0 L (39.0-53.0) % Lymphocytes # 0.8 L (1.0-4.8) k/uL Eosinophils # 0.8 H (0-0.7) k/uL Sodium 133 L (137-145) mmol/L Potassium 3.2 L (3.5-5.1) mmol/L Chloride 97 L (98-107) mmol/L Carbon Dioxide 34 H (22-30) mmol/L BUN 8 L (9-20) mg/dL Creatinine 0.64 L (0.66-1.25) mg/dL Glucose 149 H (74-99) mg/dL POC Glucose (mg/dL) 238 H (70-110) mg/dL Alkaline Phosphatase 128 H (38-126) U/L Total Protein 6.2 L (6.3-8.2) g/dL Albumin 3.4 L (3.5-5.0) g/dL
--- NOTE | 2024-09-17 14:55 | P.DS ---
Providers Date of admission: 09/09/24 18:09 Expected date of discharge: 09/17/24 Attending physician: Jun Alvarez Consults: 09/09/24 18:07 Consult Physician Routine Consulting Provider: Anup Sheffield Consult Reason/Comments: giacomo hypodensity Do you want consulting provider notified?: Already Contacted 09/13/24 18:40 Consult Physician Routine Consulting Provider: Harpreet Bright Consult Reason/Comments: ileus Do you want consulting provider notified?: Yes Primary care physician: Annie Rocha Hospital Course: Diagnosis on discharge: Generalized weakness with fall at home Abnormal CT scan of the brain revealing hypodense lesion over the left giacomo, neurology consultation was requested MRI of the brain ordered. Underlying history of hypertension Underlying history of hyperlipidemia Underlying history of diabetes mellitus Underlying history of dementia Hyponatremia. Patient maintained on normal saline at 50 Constipation, with Ileus, Surgical services following patient maintained on clear liquid diet patient started on Colace and lactulose Hospital course: Jose Ruiz, is an 89-year-old male who presented to [facility] emergency room with a chief complaint of generalized weakness and fall at home, patient was found on the floor in his home, EMS were called and patient was brought into emergency room. He has a known history of hypertension, diabetes mellitus, coronary artery disease with angina, benign prostatic hypertrophy, history of poor vision with cataract, and history of dementia He was evaluated in the emergency room vital examination on presentation revealed a temperature of 97.3 pulse 77 respiration 18 blood pressure 188/86 pulse ox 96% on room air Laboratory data revealed a white blood count of 11.3 hemoglobin 13.2 platelet count 211 BUN 18 creatinine 0.88 glucose 294 lactic acid 2.4 Testing in the emergency room revealed CT scan of the brain was done in the emergency room and revealed left giacomo hypodense white matter changes new from 2020, acute/subacute CVA should be considered, remote left fregoso radiata injury, cervical spine CT scan revealed no evidence of fracture, chest x-ray revealed no acute cardiopulmonary disease. Patient was admitted to medical floor for further evaluation and treatment On 09/11/2024 patient is alert and oriented x 3 currently sitting up in chair. MRI was completed awaiting results daughter at bedside requesting stool softener we will add Colace. Neurology services are following will consult PT OT services. Will also consult social work services for discharge planning. Current vital signs temp 98.1, heart rate 74, respiratory rate 16, blood pressure 169/83 with a pulse ox of 95% on room air On 09/12/2024 patient was seen and examined on the medical floor he is alert and oriented in no apparent distress he is complaining of constipation otherwise he denies any complaints there is no fever or chills no headache or dizziness no chest pain no shortness of breath no cough no nausea or vomiting no abdominal pain no diarrhea and no urinary symptoms. At this time we are still awaiting for MRI results, continue with physical therapy and Occupational Therapy, will follow in a.m.. on 09/13/2024 patient is alert and oriented resting comfortably in bed. Still awaiting official report of MRI. Discharge planning to [facility]. at this time patient denies chest pain or shortness of breath. Patient denies nausea vomiting or diarrhea. Patient denies any urinary burning or frequency On 09/14/2024 patient was seen and examined on the medical floor he is alert and oriented x 3 in no apparent distress, at this time he denies any complaints there is no fever or chills no headache or dizziness no chest pain no shortness of breath no cough no nausea or vomiting no abdominal pain no diarrhea and no urinary symptoms. Over the weekend he had abdominal discomfort with abdominal distention, CT scan of the abdomen revealed evidence of constipation with possible ileus, his diet was switched to clear liquid diet he was seen by Dr. Bright in surgical consultation, he was started on Colace and lactulose, he had bowel movement since then. Today sodium is down to 128 he was started on IV normal saline at 50 cc/h, will recheck labs in a.m.. Plan is for patient to be transferred to [facility] when medically stable. On 09/15/2024 patient is alert and oriented x 3. Sodium slightly improving to 129 continue fluids at 50. Current vital signs temp 97.2, heart rate 73, respiratory rate 18, blood pressure 156/74 with a pulse ox of 94% on room air. Patient maintained on clear liquid diet surgical services are following. Patient denies chest pain or shortness of breath. Patient denies nausea vomiting or diarrhea. Patient denies any urinary burning or frequency On 09/16/2024 patient is alert and oriented resting comfortably in bed. Sodium 130 potassium 3.4 will replace per protocol. Patient remains on Colace and lactulose surgical services are following patient maintained on clear liquid diet. Patient did have bowel movement this a.m. Patient denies chest pain or shortness of breath. Patient denies nausea vomiting or diarrhea. Patient denies any urinary burning or frequency On 09/17/2024 patient was seen and examined on the medical floor he is alert and oriented x 3 in no apparent distress, at this time he denies any complaints there is no fever or chills no headache or dizziness no chest pain no shortness of breath no cough no nausea or vomiting no abdominal pain no diarrhea and no urinary symptoms. Over the weekend he had abdominal discomfort with abdominal distention, CT scan of the abdomen revealed evidence of constipation with possible ileus, he was started on Colace and lactulose, he had bowel movement since then. Today sodium is down to 133 Potassium 3.2 and will be corrected, Plan is for patient to be transferred to [facility]. Patient Condition at Discharge: Stable Plan - Discharge Summary Discharge Rx Participant: No New Discharge Prescriptions: New Lactulose [Cephulac] 20 gm PO DAILY #210 ml Aspirin 81 mg PO DAILY 30 Days #30 tab Docusate [Colace] 100 mg PO BID 30 Days #60 cap Atorvastatin [Lipitor] 10 mg PO HS 30 Days #30 tab Continue amLODIPine [Norvasc] 10 mg PO DAILY Nitroglycerin Sl Tabs [Nitrostat] 0.4 mg SUBLINGUAL Q5M PRN #30 tab PRN Reason: Chest Pain Tamsulosin [Flomax] 0.4 mg PO HS Losartan Potassium 50 mg PO DAILY metFORMIN HCL 1,000 mg PO BID hydroCHLOROthiazide [Hydrodiuril] 12.5 mg PO DAILY hydrOXYzine HCL [Atarax] 50 mg PO BID QUEtiapine [SEROquel] 25 mg PO HS Discharge Medication List amLODIPine [Norvasc] 10 mg PO DAILY 11/17/20 [History] Nitroglycerin Sl Tabs [Nitrostat] 0.4 mg SUBLINGUAL Q5M PRN #30 tab 11/19/20 [Rx] Losartan Potassium 50 mg PO DAILY 09/09/24 [History] QUEtiapine [SEROquel] 25 mg PO HS 09/09/24 [History] Tamsulosin [Flomax] 0.4 mg PO HS 09/09/24 [History] hydrOXYzine HCL [Atarax] 50 mg PO BID 09/09/24 [History] hydroCHLOROthiazide [Hydrodiuril] 12.5 mg PO DAILY 09/09/24 [History] metFORMIN HCL 1,000 mg PO BID 09/09/24 [History] Aspirin 81 mg PO DAILY 30 Days #30 tab 09/17/24 [Rx] Atorvastatin [Lipitor] 10 mg PO HS 30 Days #30 tab 09/17/24 [Rx] Docusate [Colace] 100 mg PO BID 30 Days #60 cap 09/17/24 [Rx] Lactulose [Cephulac] 20 gm PO DAILY #210 ml 09/17/24 [Rx] Follow up Appointment(s)/Referral(s): Cecilio Ackerman MD [STAFF PHYSICIAN] - 1-2 days
[2024-09-17 15:35] VITALS: BP 135/76; PULSE 67
[2024-09-17 16:39] LABS: Glucose,Whole Blood 196 mg/dL (70-110)
== END 2024-09-17 19:02 | DRG 305 ==
LOC: EC 15:14 → 3SCARD 18:09
PROVIDERS: ADMIT Internal Medicine; ATTEND Internal Medicine
DX: I16.0 Hypertensive urgency (principal); E87.1 Hypo-osmolality and hyponatremia; K56.7 Ileus, unspecified; G93.9 Disorder of brain, unspecified; R53.81 Other malaise; I10 Essential (primary) hypertension; I25.10 Atherosclerotic heart disease of native coronary artery without angina pectoris; E78.5 Hyperlipidemia, unspecified; S00.01XA Abrasion of scalp, initial encounter; E11.65 Type 2 diabetes mellitus with hyperglycemia; E11.36 Type 2 diabetes mellitus with diabetic cataract; N40.0 Benign prostatic hyperplasia without lower urinary tract symptoms; W18.30XA Fall on same level, unspecified, initial encounter; Y92.009 Unspecified place in unspecified non-institutional (private) residence as the place of occurrence of the external cause; Z79.82 Long term (current) use of aspirin; Z79.84 Long term (current) use of oral hypoglycemic drugs; F03.A0 Unspecified dementia, mild, without behavioral disturbance, psychotic disturbance, mood disturbance, and anxiety; Z79.899 Other long term (current) drug therapy; Z86.73 Personal history of transient ischemic attack (TIA), and cerebral infarction without residual deficits
CPT/HCPCS: 36415; 70450; 70551; 71046; 72125; 72170; 74019; 74176; 80053; 81001; 82607; 82746; 83036; 83605; 83735; 83880; 85025; 85610; 85730; 87636; 93005; 99285

== ENCOUNTER → 2024-10-14 | Outpatient (CLI) | payer MEDICARE ==
--- NOTE | 2024-10-14 09:46 | MR ---
EXAMINATION TYPE: MR MRCP DATE OF EXAM: 10/14/2024 8:24 AM COMPARISON: 09/13/2024. CLINICAL INDICATION: Male, 89 years old with history of R93.2 ABNORMAL FINDINGS ON DX IMAGING OF LIVE R AND; PHH, Elevated bilirubin, abnormal CT. TECHNIQUE: Multi planar, T2-weighted imaging with and without fat saturation and chemical shift imag ing was performed of the abdomen. Then, heavily T2 weighted imaging (half-Fourier acquisition single- shot turbo spin-echo) was utilized in order to study the biliary system. Maximum intensity projectio n images were reconstructed from the original data of the biliary tree. 3D images were created on a [employer] work station. No Gadolinium given. FINDINGS: Lower Thorax: No evidence for acute process. MRCP: * The intrahepatic ducts have a normal appearance. * The extrahepatic ducts have a normal appearance. * The common hepatic duct measures 5 mm in size. * The common bile duct at the level of the pancreatic head is pencil thin and obstructed by soft tis nelly ill-defined mass. * The pancreatic duct is normal. * The gallbladder appears markedly distended with thickened ruffin and pericholecystic fluid. Gallsto yenni noted layering in the gallbladder lumen. New ill-defined soft tissue extending around the alley hepatis in the upper abdomen near the pancreat ic head neck extending to the liver measuring at least 9.4 x 5.1 x 11.1 cm which extends along the co mmon bile duct with a thickened appearance of the bile duct extending from the common hepatic duct to the into the pancreatic head where there is no visible high T2 signal throughout this portion of the bile duct. Series 401 image 13. This encases a majority of the upper abdomen structures. Abdomen: Liver: No evidence for hepatic steatosis or cirrhosis. Pancreas: No ductal dilation. No evidence for solid mass. Spleen: Normal for size. Adrenal glands: Unremarkable. Kidneys: No evidence for obstructive uropathy. No suspicious renal masses. Bilateral renal cysts pauline uring up to 4.5 cm on left. Stomach and Bowel: No evidence for bowel wall thickening or evidence for obstruction. Retroperitoneum/Peritoneum: No evidence of pneumoperitoneum or free fluid. Vasculature: No aortic aneurysm. Musculoskeletal: The osseous structures appear intact. Lymph Nodes: No gross evidence for lymphadenopathy. Abdominal wall: Unremarkable. IMPRESSION: 1. New from CT ill-defined soft tissue mass in the upper quadrant in the alley hepatis around a jamison rity of the structures. Etiology uncertain differentials include lymphoma versus pancreatic tumor sally santosh other. Findings are new from CT 09/13/2024. 2. Questionable cholecystitis also present secondary to #1. 3. Cholelithiasis. 4. No evidence for choledocholithiasis. [facility], , 10/14/2024 9:43 AM
== END | disposition home or self-care (01) ==
LOC: RADMRIMAIN 07:24
PROVIDERS: ATTEND Family Medicine
DX: R93.2 Abnormal findings on diagnostic imaging of liver and biliary tract (principal); K80.67 Calculus of gallbladder and bile duct with acute and chronic cholecystitis with obstruction; K80.20 Calculus of gallbladder without cholecystitis without obstruction
CPT/HCPCS: 74181